=== PATIENT | male | born 1960 | race Caucasian/White ===

== ENCOUNTER 2020-04-18 08:07 | Outpatient (REF) | payer MEDICAID, SELFPAY ==
[2020-04-18 09:47] LABS: Estimated Average Glucose 111 mg/dL; Hemoglobin A1c % 5.5 %
[2020-04-18 10:05] LABS: Alanine Aminotransferase 23 U/L (0-40); Albumin Level 4.2 g/dL (3.5-5.0); Alkaline Phosphatase 99 U/L (39-117); Anion Gap 13 (12-20); Aspartate Amino Transferase 18 U/L (5-37); Bilirubin Direct 0.2 mg/dL (0.0-0.5); Bilirubin Total 0.5 mg/dL (0.0-1.0); Blood Urea Nitrogen 12 mg/dL (9-16); Calcium 8.7 mg/dL (8.4-10.2); Carbon Dioxide 27 mmol/L (22-29); Chloride 103 mmol/L (96-108); Cholesterol 173 mg/dL; Estimated Glomerular Filt Rate > 60; Glucose Random 222 mg/dL (60-115); HDL Cholesterol 43 mg/dL; LDL Cholesterol Calculated 104 mg/dl; Potassium 4.6 mmol/l (3.3-5.1); Sodium 138 mmol/L (135-145); Total Protein 6.7 g/dL (6.5-8.0); Triglycerides 133 mg/dL
[2020-04-18 10:29] LABS: TSH reflex Free T4 2.52 mIU/mL (0.32-4.0); Vitamin D 25-OH Total 22.7 ng/mL (>30)
== END 2020-04-18 08:08 | disposition home or self-care (01) ==
LOC: HO.LAB 08:07
PROVIDERS: Visit Provider Internal Medicine
DX: Z00.00 Encounter for general adult medical examination without abnormal findings (principal)
CPT/HCPCS: 80048; 80061; 80076; 82306; 83036; 84443

== ENCOUNTER 2020-10-17 09:48 | Outpatient (REF) | payer MEDICAID, SELFPAY ==
[2020-10-17 10:38] LABS: MANUAL DIFF FLAG NO
[2020-10-17 10:45] LABS: Basophils Absolute Auto 0.1 X10*3/uL (0.0-0.2); Basophils Percent Auto 0.7 % (0-2); Eosinophils Absolute Auto 0.1 X10*3/uL (0.0-0.4); Eosinophils Percent Auto 1.8 % (0-4); Hematocrit 40.2 % (42-52); Hemoglobin 13.3 g/dl (14.0-18.0); Imm Gran Abs Auto 0.04 X10*3/uL (0.00-0.03); Imm Gran Pct Auto 0.5 % (0.0-0.4); Lymphocytes Absolute Auto 2.3 X10*3/uL (1.2-4.9); Lymphocytes Percent Auto 31.3 % (20-40); Mean Corpuscular HGB Conc 33.1 g/dl (31.0-36.0); Mean Corpuscular Hemoglobin 30.1 pg (27.0-33.0); Mean Platelet Volume 9.3 fL (9.4-12.4); Monocytes Absolute Auto 0.7 X10*3/uL (0.1-1.2); Monocytes Percent Auto 9.9 % (2-11); Neutrophils Absolute Auto 4.1 X10*3/uL (2.0-8.3); Neutrophils Percent Auto 55.8 % (45-73); Platelet Count 303 X10*3/uL (160-400); Red Blood Count 4.42 X10*6/uL (4.60-5.80); Red Cell Distribution Width 12.9 % (11.0-16.0); White Blood Count 7.4 X10*3/uL (4.8-10.8)
[2020-10-17 10:52] LABS: Estimated Average Glucose 108 mg/dL; Hemoglobin A1c % 5.4 %
[2020-10-17 11:24] LABS: TSH reflex Free T4 0.67 uIU/mL (0.32-4.0); Vitamin D 25-OH Total 26.5 ng/mL (>30)
[2020-10-17 12:27] LABS: Alanine Aminotransferase 25 U/L (0-40); Albumin Level 4.4 g/dL (3.5-5.0); Alkaline Phosphatase 107 U/L (39-117); Anion Gap 10 (12-20); Aspartate Amino Transferase 18 U/L (5-37); Bilirubin Direct < 0.2 mg/dL (0.0-0.5); Bilirubin Total 0.3 mg/dL (0.0-1.0); Blood Urea Nitrogen 14 mg/dL (9-16); Calcium 9.5 mg/dL (8.4-10.2); Carbon Dioxide 27 mmol/L (22-29); Chloride 108 mmol/L (96-108); Cholesterol 171 mg/dL; Estimated Glomerular Filt Rate > 60; Glucose Random 44 mg/dL (60-115); HDL Cholesterol 44 mg/dL; LDL Cholesterol Calculated 93 mg/dl; Potassium 4.2 mmol/L (3.3-5.1); Sodium 141 mmol/L (135-145); Total Protein 7.1 g/dL (6.5-8.0); Triglycerides 170 mg/dL
== END 2020-10-17 09:49 | disposition home or self-care (01) ==
LOC: HO.LAB 09:48
PROVIDERS: PCP Internal Medicine; Visit Provider Internal Medicine
DX: I10 Essential (primary) hypertension (principal)
CPT/HCPCS: 36415; 80048; 80061; 80076; 82306; 83036; 84443; 85025

== ENCOUNTER 2020-11-16 01:18 | Day surgery (SDC) | payer MEDICAID, SELFPAY ==
--- NOTE | 2020-11-16 | ECG_ITS ---
Test Reason : SKIN ABCESS Blood Pressure : / mmHG Vent. Rate : 118 BPM Atrial Rate : 118 BPM P-R Int : 134 ms QRS Dur : 084 ms QT Int : 340 ms P-R-T Axes : 059 -17 028 degrees QTc Int : 476 ms Sinus tachycardia Minimal voltage criteria for LVH, may be normal variant Borderline ECG When compared with ECG of 06-DEC-2018 07:34, No significant change was found Referred By: Chelsey Mcclellan Electronically Signed By:LICO PEPE MD
--- NOTE | ~2020-11-16 | XR_ITS ---
EXAMINATION: XR ABDOMEN KUB CLINICAL INDICATION: Foreign body COMPARISON: 11/18/2017 TECHNIQUE: AP view of the abdomen. FINDINGS: A cylindrical shaped foreign body overlies the central pelvis along the midline; in this projection it measures approximately 9 x 4 cm, though this may lie in an oblique orientation which could misrepresent its true maximal length. The bowel gas pattern is nonobstructive. Moderate amount of stool is noted in the right abdomen. No acute osseous findings are seen. XR/XR KUB IMPRESSION: Cylindrical shaped foreign body overlying the central pelvis.
[2020-11-16 01:50] VITALS: BP 145/78; PULSE 82; RESP 18; TEMP 36.6; O2SAT 99; BMI 27.4
--- NOTE | 2020-11-16 04:25 | ED_ITS ---
HPI - Skin/Abscess/Foreign Bdy General Chief complaint: Skin/Abscess/Foreign Body Stated complaint: Personal Time Seen by Provider: 11/16/20 04:24 History of Present Illness HPI narrative: Patient is a 60-year-old male presents today with having a foreign object up his rectum. Patient was using an enema bottle. The cap part of the bottle slipped deep into his rectum. Patient came in because the foreign object is retained. He was unable to remove it. [facility] Patient denies any fever chills. No nausea no vomiting. Patient is not on blood thinners. Patient is from home. Related Data Allergies Allergy/AdvReac Type Severity Reaction Status Date / Time No Known Allergies Allergy Verified 11/16/20 03:03 [No Known Allergies*] Review of Systems Review of Systems: Constitutional: No Weight loss, No Fever, No Chills, No Night Sweats, No Fatigue, No Malaise ENT/Mouth: No Hearing loss, No Ear Pain, No Nasal Congestion, No Sinus Pain, No Hoarseness, No sore throat, No Rhinorrhea, No Swallowing Difficulty Eyes: No Eye Pain, No Swelling, No Redness, No Foreign Body, No Discharge, No Vi mayank Changes Cardiovascular: No Chest Pain, No SOB, No Dyspnea on Exertion, No Orthopnea, No Edema, No Palpitations Respiratory: No Cough, No Sputum, No Wheezing, No Smoke Exposure, No Dyspnea Gastrointestinal: No Nausea, No Vomiting, No Diarrhea, No Constipation, No abdominal Pain, No Hematochezia, No Melena Genitourinary: no irregular bleeding, No Dysuria, No Urinary Frequency, No Hematuria, No Urinary Incontinence, No Urgency, No Flank Pain, No Urinary Flow Changes, No Hesitancy Musculoskeletal: No joint pain, No Myalgias, No Joint Swelling Skin: No Skin Lesions, No rash Neuro: No Weakness, No Numbness, No Paresthesias, No Loss of Consciousness, No Dizziness, No Headache Psych: No Anxiety/Panic, No Depression, No SI/HI/AH/VH, No Social Issues, Heme/Lymph: No Bruising, No Bleeding,No Lymphadenopathy Endocrine: No Polyuria, No Polydipsia, No Temperature Intolerance PMFSH Past Medical History Medical History Colon cancer Social History Social History Advance Directives: No Advance Directives Information Provided: No Physical Exam Vital Signs: Vital Signs: Last Vital Signs Temp 97.8 F 11/16/20 01:50 Pulse 82 11/16/20 01:50 Resp 18 11/16/20 01:50 BP 145/78 H 11/16/20 01:50 Pulse Ox 99 11/16/20 01:50 Body Mass Index 27.4 Appearance: Alert. Oriented X3. No acute distress. Eyes: Pupils equal, round and reactive to light. ENT: Pharynx normal. Neck: Normal inspection. Neck supple. No lymph nodes noted. No crepitus CVS: Normal heart rate and rhythm. Pulses normal. Normal S1 and S2 Respiratory: No respiratory distress. Breath sounds normal. No Wheezing. No rales Abdomen: Soft and nontender. No rigidity. No distention. good BS x4 Skin: Skin warm and dry. Normal skin color. Normal skin turgor. Rectal exam done with nurse is a bowel present. There is a foreign object noted up the rectum. Extremities: No lower extremity edema. Neurovascular intact to all extremities. No Lacerations. No Rash Neuro: Oriented X 3. No motor deficit. No sensory deficit. Moving all extermities. No slurred speech MDM - Skin/Abscess/Foreign Bdy MDM Narrative Medical decision making narrative: Positive foreign body. Attempted to remove the foreign body multiple times to no avail. Patient's case discussed with surgery. Will take patient to the OR. Discharge Plan Discharge Clinical Impression: Foreign bodies Patient Disposition: Home, Self-Care
--- NOTE | 2020-11-16 04:36 | PC.NURSE ---
to bedside to attempt manual extraction of foreign body. Item appears to be a plastic enema bottle, entirely in rectum, visualized on imaging. Provider unable to remove despite multiple attempts. Plan to have object surgically removed, approved by .
--- NOTE | 2020-11-16 06:30 | P.HPGS_ITS ---
History of Present Illness History of Present Illness Date of Service: 11/18/20 Chief complaint: Personal Narrative: Shilo Tran is a 60 year old male who presented to the emergency department early today for treatment of a foreign body of the rectum. He reports that he recently completed a stool test that showed blood in his stool. He states that he was told that he has colon cancer and that it is possible that it could be treated by inserting something into the rectum. He reports that he was not having any difficulty with rectal bleeding, abdominal pain or change in bowel habit. Last night, he reports that he tried to use an enema but lost control of the bottle and was not able to remove it at home. Attempts to remove it in the emergency department were unsuccessful. He reports that he is feeling pressure around the rectum. He feels bloated. He has been passing flatus. He has no other complaints and is not experiencing any abdominal pain, fever or chills. Review of Systems Constitutional: Constitutional: Denies chills, Denies fever(s) and Reports headache(s) Eyes: Eyes: Reports no additional eye complaints ENT: Denies vertigo, Denies dizziness and Reports headache(s) Cardiovascular: Cardiovascular: Denies chest pain, Reports palpitations (If blood sugar is low) and Denies dyspnea Respiratory: Respiratory: Denies cough, Denies dyspnea and Denies wheezing Gastrointestinal: Gastrointestinal: Reports as per HPI Genitourinary: Genitourinary: Reports no additional male genitourinary comp laints Musculoskeletal: Musculoskeletal: Reports back pain Comments: Left arm pain related to recent fall Neurologic: Denies vertigo, Denies dizziness and Reports headache(s) Endocrine: Endocrine: Reports palpitations (If blood sugar is low) Hematologic/Lymphatic: Comments: No history of unusual bleeding or blood clots Allergic/Immunologic: Allergic/Immunologic: Denies wheezing PMFSH Past Medical History Medical History (Updated 11/16/20 @ 06:37 by Chelsey Mcclellan MD) Colon cancer Hypercholesterolemia Hypothyroidism Surgical History Surgical History (Updated 11/16/20 @ 16:19 by Chelsey Mcclellan MD) H/O elbow surgery Social History Social History (Updated 11/16/20 @ 16:19 by Chelsey Mcclellan MD) Alcohol intake: never Patient Tobacco Use Status: Never used Tobacco Advance Directives: No Advance Directives Information Provided: No Meds Allergies Allergy/AdvReac Type Severity Reaction Status Date / Time No Known Allergies Allergy Verified 11/16/20 03:03 [No Known Allergies*] Physical Exam Vital Signs: Vital Signs: Last Vital Signs Temp 97.8 F 11/16/20 01:50 Pulse 82 11/16/20 01:50 Resp 18 11/16/20 01:50 BP 145/78 H 11/16/20 01:50 Pulse Ox 99 11/16/20 01:50 Body Mass Index 27.4 Const: General: cooperative and no acute distress HENMT: Head: Yes normocephalic and Yes atraumatic Resp: Effort & Inspection: normal respiratory effort Auscultation: clear to auscultation bilaterally Cardio: Rate: regular rate Rhythm: regular rhythm GI: Other: Mildly distended, mild generalized tenderness, no palpable masses, no obvious organomegaly Skin: Other: Normal color, warm and dry Extrem: General: Yes normal to inspection (except well healed scar right elbow, ecchymoses left forearm) Psych: Affect: Anxious affect present Attitude: Guarded attititude/behavior present Assessment and Plan (1) Foreign bodies: Status: Acute 60-year-old male with foreign body of the rectum, unable to remove at bedside. Will require removal in the operating room. I reviewed the procedure with him and explained that we will attempt to remove the foreign body transanally. If this is not possible, laparotomy would be needed and possibly colotomy with extraction. We reviewed risks of the procedure including but not limited to infection, bleeding, bowel perforation, incisional hernia, anastomotic leak, DVT and PE. We also discussed possible need for temporary colostomy. He agrees to proceed. This will be scheduled urgently. Procedures Date of Service Date of Service: 11/16/20
--- NOTE | 2020-11-16 08:02 | P.CONAN_ITS ---
PMFSH Active Problems Active Problems: All Active Problems (Updated 11/16/20 @ 06:37 by Chelsey Doll ch, MD) Diabetes mellitus type 1 (Acute) Foreign bodies (Acute) Past Medical History Medical History (Updated 11/16/20 @ 06:37 by Chelsey Mcclellan MD) Colon cancer Hypercholesterolemia Hypothyroidism Social History Social History Advance Directives: No Advance Directives Information Provided: No Meds Allergies Allergy/AdvReac Type Severity Reaction Status Date / Time No Known Allergies Allergy Verified 11/16/20 03:03 [No Known Allergies*] Exam Exam Date and Time: November 16, 2020 0802 Height,Weight and Vital Signs: Height 5 ft 2 in Weight 68.039 kg Last Vital Signs Temp 97.8 F 11/16/20 01:50 Pulse 82 11/16/20 01:50 Resp 18 11/16/20 01:50 BP 145/78 H 11/16/20 01:50 Pulse Ox 99 11/16/20 01:50 Airway Mallampati Class: II TM Dist: >3cm Neck ROM: Full Heart: RRR Lungs: CTA Assessment and Plan Assessment Anesthesia Assessment: Anesthesia Plan Discussed and Chart Reviewed Final Anesthetic Review NPO: Yes ASA Class: III and Emergency Final Preanesthetic Review: No Changes in Pt Med Stat, Meds/Allgs Chart Reviewed, Consent Obtained/Reviewed and Anes Risks/Benef Reviewed Patient Risk: Intermediate Procedure Risk: Low Anesthetic Plan Anesthetic Plan: MAC: Disposition: Standard PACU
--- NOTE | 2020-11-16 08:10 | PC.NURSE ---
NURSE TO NURSE GIVEN TO SOFIA (RN) OR , PT AWARE OF PLAN OF CARE FOR SURGERY THIS AM. PT IS A/O X 3 NO SOB/MOIRA NOTED SKIN PINK WARM DRY SPEAKS IN FULL SENTENCES.
[2020-11-16 08:18] VITALS: BP 137/60; PULSE 116; RESP 16; TEMP 36.7; O2SAT 94
[2020-11-16 08:19] LABS: Glucose, Whole Blood 135 mg/dL (60-115)
--- NOTE | 2020-11-16 08:21 | PC.NURSE ---
Patient stated he was a diabetic and that sugar was low and requested it be checked. PoC done sugar was 135.RN aware.
[2020-11-16 09:13] VITALS: BP 115/72; PULSE 116; RESP 12; TEMP 37.4; O2SAT 93
[2020-11-16 09:28] VITALS: BP 121/70; PULSE 103; RESP 20; O2SAT 94
--- NOTE | 2020-11-16 09:30 | W.PM.OPN ---
Operative Note Operative Note Date of Service: 11/16/20 Narrative: Preoperative diagnosis: Foreign body of rectum Postoperative diagnosis: Same Procedure: Examination under anesthesia and removal of foreign body of rectum Anesthesia: Monitored anesthesia care Estimated blood loss: Less than 5 cc Specimen: Foreign body of rectum Urine output: None IV fluids: Lactated Ringer's Immediate complications: None Indications: This is a 60-year-old gentleman who presented to the emergency department for treatment of foreign body of the rectum. Removal could not be accomplished at the bedside. Abdominal examination was benign. Procedure in detail: With the patient in the left lateral decubitus position after obtaining adequate sedation, time-out procedure was performed. The anal sphincter was gently dilated to admit 4 fingers. Rectal examination was performed. A slender cool foreign body was palpable with the base resting against the sacral hollow. Using a combination of gentle manipulation as well as insertion of a 16 Bulgarian Cantor catheter for air insufflation above the level of the foreign body, it did could be repositioned more distally. It was then grasped with sponge forceps and extracted. A small amount of blood was noted in mucoid stool during the procedure, but no significant active bleeding was encountered. He tolerated the procedure well and was transported to the recovery room in stable condition.
[2020-11-16 09:38] LABS: MANUAL DIFF FLAG NO
[2020-11-16 09:43] VITALS: BP 124/76; PULSE 101; RESP 20; O2SAT 96
--- NOTE | 2020-11-16 09:48 | PC.NURSE ---
EKG NOT NEEDED PER MD JENNINGS. LABS WERE DRAWN POST-OP OK PER MD JENNINGS.
[2020-11-16 09:58] VITALS: BP 123/84; PULSE 100; RESP 20; O2SAT 95
[2020-11-16 10:00] LABS: Anion Gap 14 (12-20); Blood Urea Nitrogen 10 mg/dL (9-16); Carbon Dioxide 22 mmol/L (22-29); Chloride 109 mmol/L (96-108); Creatinine Clr Calc Pharmacy 103.8; Estimated Glomerular Filt Rate > 60; Glucose Fasting 135 mg/dL (60-99); Potassium 4.1 mmol/L (3.3-5.1); Sodium 141 mmol/L (135-145)
[2020-11-16 10:07] LABS: Basophils Percent Auto 0.3 % (0-2); Hemoglobin 12.6 g/dl (14.0-18.0); Imm Gran Abs Auto 0.06 X10*3/uL (0.00-0.03); Imm Gran Pct Auto 0.6 % (0.0-0.4); Lymphocytes Absolute Auto 1.3 X10*3/uL (1.2-4.9); Lymphocytes Percent Auto 11.6 % (20-40); Mean Corpuscular HGB Conc 34.1 g/dl (31.0-36.0); Mean Corpuscular Hemoglobin 30.5 pg (27.0-33.0); Mean Corpuscular Volume 89.6 fL (80-98); Mean Platelet Volume 9.4 fL (9.4-12.4); Monocytes Absolute Auto 0.7 X10*3/uL (0.1-1.2); Monocytes Percent Auto 6.4 % (2-11); Neutrophils Absolute Auto 8.9 X10*3/uL (2.0-8.3); Neutrophils Percent Auto 81.1 % (45-73); Platelet Count 301 X10*3/uL (160-400); Red Blood Count 4.13 X10*6/uL (4.60-5.80); Red Cell Distribution Width 13.1 % (11.0-16.0); White Blood Count 10.9 X10*3/uL (4.8-10.8)
== END 2020-11-16 11:24 | disposition home or self-care (01) ==
LOC: HO.ED 04:02 → HO.SSS 07:22
PROVIDERS: Emergency Provider Emergency Medicine Emergency Medical Services; Visit Provider Surgery
PROC: (CPT 45990; principal; 2020-11-16 07:30)
DX: T18.5XXA Foreign body in anus and rectum, initial encounter (principal); X58.XXXA Exposure to other specified factors, initial encounter; E10.9 Type 1 diabetes mellitus without complications; E78.00 Pure hypercholesterolemia, unspecified; Y93.89 Activity, other specified; Y92.9 Unspecified place or not applicable; Y99.8 Other external cause status; Z85.038 Personal history of other malignant neoplasm of large intestine
CPT/HCPCS: 45915; 36415; 74018; 80048; 82947; 85025; 88300; 93005; 99284; 99285

== ENCOUNTER 2020-12-27 18:48 | Emergency (ER) | payer MEDICAID, SELFPAY ==
--- NOTE | ~2020-12-27 | CT_ITS ---
EXAMINATION: CT HEAD WITHOUT CONTRAST, CT CERVICAL SPINE WITHOUT CONTRAST CLINICAL INFORMATION: Fall. COMPARISON: Portions of head CT 11/18/17 TECHNIQUE: Multidetector CT examination of the head is performed without contrast. Multidetector CT of the cervical spine without contrast. Multiplanar postprocessing This CT examination was performed using dose optimization techniques as appropriate, variously including the following: *Automated exposure control *Adjustment of mA and/or kV according to patient size (this includes techniques or standardized protocols for targeted exams where dose is matched to indication/reason for exam; i.e. extremities or head) *Use of iterative reconstruction technique DLP: Head CT 655 mGy-cm DLP: Cervical CT 511 mGy-cm FINDINGS: Head CT: There is no evidence of a recent intracranial hemorrhage or extra-axial collection. The midline structures are nondisplaced. The ventricles, cisterns, and sulci are within normal limits. There is no evidence of an intra-axial mass. There are no suspicious focal areas of abnormal brain attenuation. The evans-white interface is within normal limits. There is no evidence of acute territorial infarct. The paranasal sinuses and mastoids are within normal limits. No fracture demonstrated Cervical CT: No acute fracture or subluxation. There are degenerative changes. No suspicious abnormality in the visualized apex of the chest CT/CT cervical spine wo con IMPRESSION: 1. There is no evidence of a recent intracranial hemorrhage. 2. No acute infarct. 3. No acute fracture or subluxation of the cervical spine No fracture or fluid level.
--- NOTE | ~2020-12-27 | CT_ITS ---
EXAMINATION: CT HEAD WITHOUT CONTRAST, CT CERVICAL SPINE WITHOUT CONTRAST CLINICAL INFORMATION: Fall. COMPARISON: Portions of head CT 11/18/17 TECHNIQUE: Multidetector CT examination of the head is performed without contrast. Multidetector CT of the cervical spine without contrast. Multiplanar postprocessing This CT examination was performed using dose optimization techniques as appropriate, variously including the following: *Automated exposure control *Adjustment of mA and/or kV according to patient size (this includes techniques or standardized protocols for targeted exams where dose is matched to indication/reason for exam; i.e. extremities or head) *Use of iterative reconstruction technique DLP: Head CT 655 mGy-cm DLP: Cervical CT 511 mGy-cm FINDINGS: Head CT: There is no evidence of a recent intracranial hemorrhage or extra-axial collection. The midline structures are nondisplaced. The ventricles, cisterns, and sulci are within normal limits. There is no evidence of an intra-axial mass. There are no suspicious focal areas of abnormal brain attenuation. The evans-white interface is within normal limits. There is no evidence of acute territorial infarct. The paranasal sinuses and mastoids are within normal limits. No fracture demonstrated Cervical CT: No acute fracture or subluxation. There are degenerative changes. No suspicious abnormality in the visualized apex of the chest CT/CT head/brain wo con IMPRESSION: 1. There is no evidence of a recent intracranial hemorrhage. 2. No acute infarct. 3. No acute fracture or subluxation of the cervical spine No fracture or fluid level.
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
[2020-12-27 18:57] VITALS: BP 110/57; PULSE 120; RESP 18; TEMP 36.6; BMI 33.3
--- NOTE | 2020-12-27 19:00 | ECG_ITS ---
Test Reason : SYNCOPY Blood Pressure : / mmHG Vent. Rate : 114 BPM Atrial Rate : 114 BPM P-R Int : 132 ms QRS Dur : 082 ms QT Int : 354 ms P-R-T Axes : 043 -22 -02 degrees QTc Int : 487 ms Sinus tachycardia Moderate voltage criteria for LVH, may be normal variant Borderline ECG When compared with ECG of 16-NOV-2020 07:31, No significant change was found Referred By: Keyanna Gaytan Electronically Signed By:LICO PEPE MD
[2020-12-27 19:07] LABS: Glucose, Whole Blood 126 mg/dL (60-115)
[2020-12-27] MEDS: 0.9 % Sodium Chloride 1,000 ML 999 ML IVCONT (19:16)
[2020-12-27] MEDS: ondansetron HCL 4 MG/2 ML VIAL IVPUSH (19:16)
[2020-12-27 19:22] LABS: MANUAL DIFF FLAG NO
[2020-12-27 19:37] LABS: Basophils Absolute Auto 0.1 X10*3/uL (0.0-0.2); Basophils Percent Auto 0.7 % (0-2); Eosinophils Absolute Auto 0.2 X10*3/uL (0.0-0.4); Eosinophils Percent Auto 2.2 % (0-4); Hematocrit 38.6 % (42-52); Hemoglobin 13.3 g/dl (14.0-18.0); Imm Gran Abs Auto 0.07 X10*3/uL (0.00-0.03); Imm Gran Pct Auto 0.9 % (0.0-0.4); Lymphocytes Absolute Auto 2.6 X10*3/uL (1.2-4.9); Mean Corpuscular HGB Conc 34.5 g/dl (31.0-36.0); Mean Corpuscular Hemoglobin 30.8 pg (27.0-33.0); Mean Corpuscular Volume 89.4 fL (80-98); Mean Platelet Volume 9.3 fL (9.4-12.4); Monocytes Absolute Auto 0.6 X10*3/uL (0.1-1.2); Monocytes Percent Auto 8.6 % (2-11); Neutrophils Absolute Auto 3.9 X10*3/uL (2.0-8.3); Neutrophils Percent Auto 52.6 % (45-73); Platelet Count 285 X10*3/uL (160-400); Red Blood Count 4.32 X10*6/uL (4.60-5.80); Red Cell Distribution Width 13.2 % (11.0-16.0); White Blood Count 7.4 X10*3/uL (4.8-10.8)
[2020-12-27 19:43] LABS: Prothrombin Time 10.9 SEC (9.9-13.0)
[2020-12-27 19:45] LABS: Partial Thromboplastin Time 29.9 SEC (24.1-38.0)
[2020-12-27 19:51] VITALS: PULSE 110
[2020-12-27 19:57] LABS: Alanine Aminotransferase 23 U/L (0-40); Alkaline Phosphatase 116 U/L (39-117); Anion Gap 18 (12-20); Aspartate Amino Transferase 26 U/L (5-37); Bilirubin Direct < 0.2 mg/dL (0.0-0.5); Bilirubin Total 0.2 mg/dL (0.0-1.0); Blood Urea Nitrogen 13 mg/dL (9-16); Carbon Dioxide 18 mmol/L (22-29); Chloride 107 mmol/L (96-108); Creatinine Clr Calc Pharmacy 72.3; Estimated Glomerular Filt Rate > 60; Glucose Random 120 mg/dL (60-115); Lipase 36 U/L (8-78); Magnesium 2.1 mg/dL (1.6-2.6); Potassium 3.9 mmol/L (3.3-5.1); Sodium 139 mmol/L (135-145); Total Protein 6.7 g/dL (6.5-8.0)
[2020-12-27 19:59] LABS: Troponin-I High Sensitivity < 3.5 ng/L (<3.5-35.0)
[2020-12-27 21:30] VITALS: BP 139/76; PULSE 104; RESP 18; O2SAT 96
[2020-12-27] MEDS: Acetaminophen 325 MG TABLET 650 MG PO (21:41)
--- NOTE | 2020-12-27 21:45 | PC.NURSE ---
PT RESTING UPRIGHT IN BED WATCHING TV, OFFERS NO NEW COMPLAINTS, POC 59, PROVIDER AWARE, PT GIVEN MULTIPLE ORANGE JUICES TO DRINK AND CRACKERS TO EAT.
[2020-12-27 22:37] LABS: Glucose, Whole Blood 59 mg/dL (60-115)
[2020-12-27 22:37] LABS: Glucose, Whole Blood 185 mg/dL (60-115)
== END 2020-12-27 22:57 | disposition home or self-care (01) ==
PROVIDERS: Emergency Provider Emergency Medicine
DX: E10.649 Type 1 diabetes mellitus with hypoglycemia without coma (principal); R55 Syncope and collapse; S00.81XA Abrasion of other part of head, initial encounter; S09.90XA Unspecified injury of head, initial encounter; W01.198A Fall on same level from slipping, tripping and stumbling with subsequent striking against other object, initial encounter; Y93.9 Activity, unspecified; Y92.9 Unspecified place or not applicable; Y99.9 Unspecified external cause status; Z85.038 Personal history of other malignant neoplasm of large intestine; Z79.4 Long term (current) use of insulin
CPT/HCPCS: 36415; 70450; 72125; 80048; 80076; 82947; 83690; 83735; 84484; 85025; 85610; 85730; 93005; 96361; 96374; 99285; J2405

== ENCOUNTER → 2021-04-01 09:53 | Outpatient (BNVA) | payer MEDICAID, SELFPAY | PROVIDERS: Visit Provider Nurse Practitioner Family | DX: Z12.11 Encounter for screening for malignant neoplasm of colon (principal); D64.9 Anemia, unspecified | CPT/HCPCS: 99202 ==

== ENCOUNTER 2021-06-29 20:22 | Emergency (ER) | payer MEDICAID, SELFPAY ==
--- NOTE | ~2021-06-29 | CT_ITS ---
EXAMINATION: CT ABDOMEN AND PELVIS WITHOUT CONTRAST CLINICAL INFORMATION: Foreign body removal. Rule out free air. COMPARISON: CT from earlier in the evening TECHNIQUE: Multidetector volumetric imaging was performed from the superior aspect of the liver through the pubic symphysis. Sagittal and coronal reformatted images were obtained on the technologist's workstation. This CT examination was performed using dose optimization techniques as appropriate, variously including the following: *Automated exposure control *Adjustment of mA and/or kV according to patient size (this includes techniques or standardized protocols for targeted exams where dose is matched to indication/reason for exam; i.e. extremities or head) *Use of iterative reconstruction technique DLP: 557 mGy-cm FINDINGS: LUNG BASES: The visualized lung bases are unremarkable. LIVER, GALLBLADDER, AND BILIARY TREE: The liver is normal in size, shape, and attenuation. No focal hepatic lesion or biliary ductal dilatation is present. The gallbladder is unremarkable with no evidence of radiopaque gallstones, gallbladder wall thickening, or obvious pericholecystic inflammatory changes. PANCREAS: Unremarkable. SPLEEN: Unremarkable. ADRENAL GLANDS: Unremarkable. KIDNEYS AND URETERS: The kidneys are normal in size, shape, and attenuation. No hydronephrosis, hydroureter, or calculi seen. No perinephric stranding. BLADDER: Unremarkable. GASTROINTESTINAL TRACT: Small hiatal hernia. The stomach is otherwise unremarkable. Normal caliber small bowel. No obstruction. Colonic diverticulosis noted without diverticulitis. Multiple of the prior foreign body. No free air. ABDOMINAL WALL: No significant hernia is appreciated. LYMPH NODES: Normal. VASCULAR: Unremarkable. PELVIC VISCERA: The prostate and seminal vesicles are unremarkable. OSSEOUS STRUCTURES: No acute or suspicious osseous abnormality. Degenerative changes of the spine. CT/CT abdomen pelvis wo con IMPRESSION: The foreign body has been removed. No free air. Fleischner guidelines were followed.
--- NOTE | ~2021-06-29 | CT_ITS ---
EXAMINATION: CT ABDOMEN AND PELVIS WITHOUT CONTRAST CLINICAL INFORMATION: Foreign body in rectum. Leukocytosis. Rule out perforation. COMPARISON: 11/18/2017 CT . Radiograph 11/16/2020. TECHNIQUE: Multidetector volumetric imaging was performed from the superior aspect of the liver through the pubic symphysis. Sagittal and coronal reformatted images were obtained on the technologist's workstation. This CT examination was performed using dose optimization techniques as appropriate, variously including the following: *Automated exposure control *Adjustment of mA and/or kV according to patient size (this includes techniques or standardized protocols for targeted exams where dose is matched to indication/reason for exam; i.e. extremities or head) *Use of iterative reconstruction technique DLP: 561 mGy-cm FINDINGS: LUNG BASES: The visualized lung bases are unremarkable. LIVER, GALLBLADDER, AND BILIARY TREE: The liver is normal in size, shape, and attenuation. No focal hepatic lesion or biliary ductal dilatation is present. The gallbladder is unremarkable with no evidence of radiopaque gallstones, gallbladder wall thickening, or obvious pericholecystic inflammatory changes. PANCREAS: Unremarkable. SPLEEN: Unremarkable. ADRENAL GLANDS: Unremarkable. KIDNEYS AND URETERS: The kidneys are normal in size, shape, and attenuation. No hydronephrosis, hydroureter, or calculi seen. No perinephric stranding. BLADDER: Unremarkable. GASTROINTESTINAL TRACT: Small hiatal hernia. The stomach is otherwise unremarkable. Normal caliber small bowel. No obstruction. Normal appendix. There is colonic diverticulosis without diverticulitis. There is a rectal foreign body which extends to the distal aspect of the sigmoid colon. This has a somewhat cylindrical shape measuring 17.5 cm in length. This has a diameter of 2.5 cm. There is a central ridge to the foreign body. This is approximately 5 cm from the anus. There is no free fluid. No free air. ABDOMINAL WALL: No significant hernia is appreciated. LYMPH NODES: Normal. VASCULAR: Unremarkable. PELVIC VISCERA: The prostate and seminal vesicles are unremarkable. OSSEOUS STRUCTURES: No acute or suspicious osseous abnormality. Degenerative changes of the hips and spine. Vacuum disc phenomenon at L5-S1. CT/CT abdomen pelvis wo con IMPRESSION: Rectal foreign body as detailed above. No free air or free fluid. Fleischner guidelines were followed.
[2021-06-29 20:47] VITALS: BP 171/82; PULSE 112; RESP 16; TEMP 37.2; O2SAT 96; BMI 32.9
[2021-06-29 21:08] LABS: MANUAL DIFF FLAG NO
[2021-06-29 21:10] LABS: Basophils Absolute Auto 0.1 X10*3/uL (0.0-0.2); Basophils Percent Auto 0.4 % (0-2); Eosinophils Absolute Auto 0.1 X10*3/uL (0.0-0.4); Eosinophils Percent Auto 0.4 % (0-4); Hemoglobin 14.2 g/dl (14.0-18.0); Imm Gran Pct Auto 0.7 % (0.0-0.4); Lymphocytes Absolute Auto 1.8 X10*3/uL (1.2-4.9); Lymphocytes Percent Auto 11.5 % (20-40); Mean Corpuscular HGB Conc 33.8 g/dl (31.0-36.0); Mean Corpuscular Hemoglobin 30.2 pg (27.0-33.0); Mean Corpuscular Volume 89.4 fL (80.0-98.0); Mean Platelet Volume 9.3 fL (9.4-12.4); Monocytes Absolute Auto 0.9 X10*3/uL (0.1-1.2); Monocytes Percent Auto 6.1 % (2-11); Neutrophils Absolute Auto 12.3 x10*3/uL (2.0-8.3); Neutrophils Percent Auto 80.9 % (45-73); Platelet Count 318 X10*3/uL (160-400); White Blood Count 15.2 X10*3/uL (4.8-10.8)
[2021-06-29 21:25] LABS: COVID-19 Test Negative (Negative)
[2021-06-29 21:29] LABS: Appearance Urine CLEAR; Color Urine YELLOW; Glucose Urine UA 100 MG/DL (NEG); Leukocyte Esterase Urine NEG (NEG); Nitrite Urine NEG (NEG); Urine Blood NEG (NEG); Urine Ketones NEG (NEG); Urine Protein NEG (NEG-TRACE)
--- NOTE | 2021-06-29 22:04 | ED_ITS ---
HPI - Abdominal Pain General Chief Complaint: Abdominal Pain Stated Complaint: general medical? Time Seen by Provider: 06/29/21 22:03 Source: patient and insurance verification specialist Mode of arrival: ambulatory History of Present Illness HPI narrative: 61-year-old male with history of diabetes presents with abdominal pain that is nonradiating and he states that he has not moved his bowels since this morning. Patient states that he tried an enema this afternoon without results. Patient otherwise denies any fever, chills, nausea, vomiting. Patient endorses that his average glucose is have been 95. He states that the enema he tried to use was recommended by a friend and was not a typical nyne-huz-hrlgyes purchase from the drugstore. He states that it is stuck inside and says that this is happened 1 other time. Related Data Home Medications Medication Instructions Recorded Confirmed clonazepam 0.5 mg tablet 0.25 mg PO BID 04/01/21 duloxetine 30 mg capsule,delayed 30 mg PO DAILY 04/01/21 release (Cymbalta) famotidine 20 mg tablet 20 mg PO BID 04/01/21 famotidine 40 mg tablet 40 mg PO BEDTIME 04/01/21 Previous Rx's Medication Instructions Recorded docusate sodium 100 mg capsule 100 mg PO BEDTIME #30 cap 04/01/21 Allergies Allergy/AdvReac Type Severity Reaction Status Date / Time No Known Allergies Allergy Verified 06/29/21 20:47 [No Known Allergies*] Review of Systems Review of Systems Pertinent positives and negatives as stated in HPI 10 point review of systems is otherwise negative. Physical Exam Vital Signs: Vital Signs: Last Vital Signs Temp 98.4 F 06/30/21 01:18 Pulse 103 H 06/30/21 01:18 Resp 16 06/30/21 01:18 BP 127/70 06/30/21 01:18 Pulse Ox 95 06/30/21 01:18 BMI result Body Mass Index 32.9 VITAL SIGNS: Reviewed. GENERAL: Well developed, well nourished, in no acute distress. HEAD: Normocephalic/atraumatic EYES: PERRLA, EOMI LUNGS: Normal breath sounds. SpO2<96> CARDIOVASCULAR: Regular rate and rhythm without noted murmurs, no JVD or lower extremity edema. ABDOMEN: Soft, non-tender, non-distended with bowel sounds. ALICIA: A hard smooth object is appreciated approximately 5 cm inside the rectum MUSCULOSKELETAL: No tenderness, deformities, or effusions noted on gross inspection. EXTREMITIES: No cyanosis, clubbing or edema. SKIN: Inspection of the skin reveals no rashes NEUROLOGIC: Alert and oriented x 4. Course Course Course Narrative: 2204: Suspect Infection 61-year-old male with history and clinical presentation concerning for possible diverticulitis initially and review of all investigations initially thought to be infectious etiology. Now there are concerns for possible perforation and on review of CT scan there is of foreign body confirmed within the rectum without noted free air/ free fluid. Patient did receive IV antibiotics as well as IV fluids. Dr Bey successfully removed the foreign object and will repeat CT imaging to evaluate for free air/free fluid. Patient states he is feeling better. On review of repeat CT imaging is negative for evidence of free air, repeat CBC shows a significant reduction in leukocytosis and left shift point more towards likely stress response as abdominal exam was otherwise benign. Patient is otherwise hemodynamically stable for discharge to home with instructions to follow-up with his primary care provider and strict return precautions. MDM - Abdominal Pain Lab Data Result diagrams: 06/30/21 01:48 06/29/21 22:50 Labs: Lab Results 06/29/21 06/29/21 06/29/21 Range/Units 21:04 21:04 21:04 WBC 15.2 H (4.8-10.8) X10*3/uL RBC 4.70 (4.60-5.80) X10*6/uL Hgb 14.2 (14.0-18.0) g/dl Hct 42.0 (42.0-52.0) % MCV 89.4 (80.0-98.0) fL MCH 30.2 (27.0-33.0) pg MCHC 33.8 (31.0-36.0) g/dl RDW 13.0 (11.0-16.0) % Plt Count 318 (160-400) X10*3/uL MPV 9.3 L (9.4-12.4) fL Immature Gran % (Auto) 0.7 H (0.0-0.4) % Neut % (Auto) 80.9 H (45-73) % Lymph % (Auto) 11.5 L (20-40) % Anson % (Auto) 6.1 (2-11) % Eos % (Auto) 0.4 (0-4) % Baso % (Auto) 0.4 (0-2) % Lymph # (Auto) 1.8 (1.2-4.9) X10*3/uL Anson # (Auto) 0.9 (0.1-1.2) X10*3/uL Eos # (Auto) 0.1 (0.0-0.4) X10*3/uL Baso # (Auto) 0.1 (0.0-0.2) X10*3/uL Abs Immat Gran (auto) 0.10 H (0.00-0.03) X10*3/uL Absolute Neuts (auto) 12.3 H (2.0-8.3) x10*3/uL Absolute Nucleated RBC 0.000 (0.0-0.012) X10*3/uL Nucleated RBC % (auto) 0.0 (0.0-0.2) /100WBC Sodium (135-145) mmol/L Potassium (3.3-5.1) mmol/L Chloride (96-108) mmol/L Carbon Dioxide (22-29) mmol/L Anion Gap (12-20) BUN (9-16) mg/dL Creatinine (0.5-1.4) mg/dL Estim Creat Clear Calc Estimated GFR POC Glucose (60-115) mg/dL Random Glucose (60-115) mg/dL Lactic Acid (0.5-2.0) mmol/L Calcium (8.4-10.2) mg/dL Total Bilirubin (0.0-1.0) mg/dL AST (5-37) U/L ALT (0-40) U/L Alkaline Phosphatase (39-117) U/L Total Protein (6.5-8.0) g/dL Albumin (3.5-5.0) g/dL Urine Color YELLOW Urine Appearance CLEAR Urine pH 6.0 (5.0-8.0) Ur Specific [place] 1.010 (1.005-1.025) Urine Protein NEG (NEG-TRACE) MG/DL Urine Glucose (UA) 100 H (NEG) MG/DL Urine Ketones NEG (NEG) MG/DL Urine Blood NEG (NEG) Urine Nitrite NEG (NEG) Ur Leukocyte Esterase NEG (NEG) COVID-19 (MATHEW) Negative (Negative) COVID-19 Clin Com See Note 06/29/21 06/29/21 06/29/21 Range/Units 22:16 22:50 22:50 WBC (4.8-10.8) X10*3/uL RBC (4.60-5.80) X10*6/uL Hgb (14.0-18.0) g/dl Hct (42.0-52.0) % MCV (80.0-98.0) fL MCH (27.0-33.0) pg MCHC (31.0-36.0) g/dl RDW (11.0-16.0) % Plt Count (160-400) X10*3/uL MPV (9.4-12.4) fL Immature Gran % (Auto) (0.0-0.4) % Neut % (Auto) (45-73) % Lymph % (Auto) (20-40) % Anson % (Auto) (2-11) % Eos % (Auto) (0-4) % Baso % (Auto) (0-2) % Lymph # (Auto) (1.2-4.9) X10*3/uL Anson # (Auto) (0.1-1.2) X10*3/uL Eos # (Auto) (0.0-0.4) X10*3/uL Baso # (Auto) (0.0-0.2) X10*3/uL Abs Immat Gran (auto) (0.00-0.03) X10*3/uL Absolute Neuts (auto) (2.0-8.3) x10*3/uL Absolute Nucleated RBC (0.0-0.012) X10*3/uL Nucleated RBC % (auto) (0.0-0.2) /100WBC Sodium 140 (135-145) mmol/L Potassium 4.6 (3.3-5.1) mmol/L Chloride 106 (96-108) mmol/L Carbon Dioxide 24 (22-29) mmol/L Anion Gap 15 (12-20) BUN 14 (9-16) mg/dL Creatinine 0.92 (0.5-1.4) mg/dL Estim Creat Clear Calc 70.2 Estimated GFR > 60 POC Glucose 218 H (60-115) mg/dL Random Glucose 227 H D (60-115) mg/dL Lactic Acid 1.0 (0.5-2.0) mmol/L Calcium 9.6 D (8.4-10.2) mg/dL Total Bilirubin 0.2 (0.0-1.0) mg/dL AST 24 (5-37) U/L ALT 34 (0-40) U/L Alkaline Phosphatase 137 H (39-117) U/L Total Protein 7.6 (6.5-8.0) g/dL Albumin 4.4 (3.5-5.0) g/dL Urine Color Urine Appearance Urine pH (5.0-8.0) Ur Specific [place] (1.005-1.025) Urine Protein (NEG-TRACE) MG/DL Urine Glucose (UA) (NEG) MG/DL Urine Ketones (NEG) MG/DL Urine Blood (NEG) Urine Nitrite (NEG) Ur Leukocyte Esterase (NEG) COVID-19 (MATHEW) (Negative) COVID-19 Clin Com 06/30/21 Range/Units 01:48 WBC 11.3 H (4.8-10.8) X10*3/uL RBC 4.32 L (4.60-5.80) X10*6/uL Hgb 12.9 L (14.0-18.0) g/dl Hct 38.6 L (42.0-52.0) % MCV 89.4 (80.0-98.0) fL MCH 29.9 (27.0-33.0) pg MCHC 33.4 (31.0-36.0) g/dl RDW 13.1 (11.0-16.0) % Plt Count 293 (160-400) X10*3/uL MPV 9.3 L (9.4-12.4) fL Immature Gran % (Auto) 0.7 H (0.0-0.4) % Neut % (Auto) 76.1 H (45-73) % Lymph % (Auto) 16.0 L (20-40) % Anson % (Auto) 6.7 (2-11) % Eos % (Auto) 0.1 (0-4) % Baso % (Auto) 0.4 (0-2) % Lymph # (Auto) 1.8 (1.2-4.9) X10*3/uL Anson # (Auto) 0.8 (0.1-1.2) X10*3/uL Eos # (Auto) 0.0 (0.0-0.4) X10*3/uL Baso # (Auto) 0.1 (0.0-0.2) X10*3/uL Abs Immat Gran (auto) 0.08 H (0.00-0.03) X10*3/uL Absolute Neuts (auto) 8.6 H (2.0-8.3) x10*3/uL Absolute Nucleated RBC 0.000 (0.0-0.012) X10*3/uL Nucleated RBC % (auto) 0.0 (0.0-0.2) /100WBC Sodium (135-145) mmol/L Potassium (3.3-5.1) mmol/L Chloride (96-108) mmol/L Carbon Dioxide (22-29) mmol/L Anion Gap (12-20) BUN (9-16) mg/dL Creatinine (0.5-1.4) mg/dL Estim Creat Clear Calc Estimated GFR POC Glucose (60-115) mg/dL Random Glucose (60-115) mg/dL Lactic Acid (0.5-2.0) mmol/L Calcium (8.4-10.2) mg/dL Total Bilirubin (0.0-1.0) mg/dL AST (5-37) U/L ALT (0-40) U/L Alkaline Phosphatase (39-117) U/L Total Protein (6.5-8.0) g/dL Albumin (3.5-5.0) g/dL Urine Color Urine Appearance Urine pH (5.0-8.0) Ur Specific [place] (1.005-1.025) Urine Protein (NEG-TRACE) MG/DL Urine Glucose (UA) (NEG) MG/DL Urine Ketones (NEG) MG/DL Urine Blood (NEG) Urine Nitrite (NEG) Ur Leukocyte Esterase (NEG) COVID-19 (MATHEW) (Negative) COVID-19 Clin Com Discharge Plan Discharge Clinical Impression: Foreign body in anus and rectum, initial encounter Patient Disposition: Home, Self-Care Instructions: Rectal Foreign Body (ED) Additional Instructions: 1. Reanudar todos los medicamentos caseros seg?n lo prescrito. 2. Recomendar el uso de [employer] de venta julee para los s?ntomas de estre ?imiento. 3. Thaddeus un seguimiento con [place] proveedor de atenci?n primaria en los pr?ximos 1 a 2 d?as para noe reevaluaci?n. Regrese a la amira de emergencias si experimenta un empeoramiento de los s?ntom as, nadine dolor abdominal, fiebre, escalofr?os. Prescriptions: No Action docusate sodium 100 mg capsule 100 mg PO BEDTIME Qty: 30 RF: 3 Print Language: Hungarian [facility] Past Medical History Source: nursing notes reviewed Medical History Colon cancer Diabetes type I Hypercholesterolemia Hypothyroidism Surgical History H/O elbow surgery Family History Family History Mother Pelvic cancer Father Diabetes Paternal Aunt Diabetes Social History Social History Alcohol intake: never Patient Tobacco Use Status: Never used Tobacco Advance Directives: No Advance Directives Information Provided: No
[2021-06-29 22:20] LABS: Glucose, Whole Blood 218 mg/dL (60-115)
[2021-06-29 23:12] LABS: Alanine Aminotransferase 34 U/L (0-40); Albumin Level 4.4 g/dL (3.5-5.0); Alkaline Phosphatase 137 U/L (39-117); Anion Gap 15 (12-20); Aspartate Amino Transferase 24 U/L (5-37); Bilirubin Total 0.2 mg/dL (0.0-1.0); Blood Urea Nitrogen 14 mg/dL (9-16); Calcium 9.6 mg/dL (8.4-10.2); Carbon Dioxide 24 mmol/L (22-29); Chloride 106 mmol/L (96-108); Creatinine Clr Calc Pharmacy 70.2; Estimated Glomerular Filt Rate > 60; Glucose Random 227 mg/dL (60-115); Potassium 4.6 mmol/L (3.3-5.1); Sodium 140 mmol/L (135-145); Total Protein 7.6 g/dL (6.5-8.0)
[2021-06-29] MEDS: Piperacillin Sodium/Tazobactam 3.375 GM in 0.9 % Sodium Chloride 50 ML IV (23:17)
[2021-06-29] MEDS: 0.9 % Sodium Chloride 2,000 ML 999 ML IV (23:18)
--- NOTE | 2021-06-29 23:57 | PC.NURSE ---
CT SHOWED FB IN RECTUM. FB REMOVED BY DR HUBER. PT TO HAVE REPEAT CT.
[2021-06-30 01:18] VITALS: BP 127/70; PULSE 103; RESP 16; TEMP 36.9; O2SAT 95
[2021-06-30 01:52] LABS: Basophils Absolute Auto 0.1 X10*3/uL (0.0-0.2); Basophils Percent Auto 0.4 % (0-2); Eosinophils Percent Auto 0.1 % (0-4); Hematocrit 38.6 % (42.0-52.0); Hemoglobin 12.9 g/dl (14.0-18.0); Imm Gran Abs Auto 0.08 X10*3/uL (0.00-0.03); Imm Gran Pct Auto 0.7 % (0.0-0.4); Lymphocytes Absolute Auto 1.8 X10*3/uL (1.2-4.9); MANUAL DIFF FLAG NO; Mean Corpuscular HGB Conc 33.4 g/dl (31.0-36.0); Mean Corpuscular Hemoglobin 29.9 pg (27.0-33.0); Mean Corpuscular Volume 89.4 fL (80.0-98.0); Mean Platelet Volume 9.3 fL (9.4-12.4); Monocytes Absolute Auto 0.8 X10*3/uL (0.1-1.2); Monocytes Percent Auto 6.7 % (2-11); Neutrophils Absolute Auto 8.6 x10*3/uL (2.0-8.3); Neutrophils Percent Auto 76.1 % (45-73); Platelet Count 293 X10*3/uL (160-400); Red Blood Count 4.32 X10*6/uL (4.60-5.80); Red Cell Distribution Width 13.1 % (11.0-16.0); White Blood Count 11.3 X10*3/uL (4.8-10.8)
== END 2021-06-30 02:28 | disposition home or self-care (01) ==
PROVIDERS: Emergency Provider Student in an Organized Health Care Education/Training Program
DX: T18.5XXA Foreign body in anus and rectum, initial encounter (principal); X58.XXXA Exposure to other specified factors, initial encounter; Z20.822 Contact with and (suspected) exposure to COVID-19; R10.9 Unspecified abdominal pain; E11.9 Type 2 diabetes mellitus without complications; Y93.89 Activity, other specified; Y92.039 Unspecified place in apartment as the place of occurrence of the external cause; Y99.9 Unspecified external cause status
CPT/HCPCS: 36415; 74176; 80053; 81003; 82947; 83605; 85025; 87040; 87635; 96361; 96374; 99284; J2543

== ENCOUNTER → 2021-07-01 13:12 | Outpatient (BNVA) | payer MEDICAID, SELFPAY | PROVIDERS: PCP Internal Medicine; Referring Provider Internal Medicine; Visit Provider Nurse Practitioner Family | DX: K59.03 Drug induced constipation (principal); D64.9 Anemia, unspecified | CPT/HCPCS: 99212 ==

== ENCOUNTER 2021-10-01 10:50 | Outpatient (REF) | payer MEDICAID, SELFPAY ==
--- NOTE | ~2021-10-01 | XR_ITS ---
EXAMINATION: XR SHOULDER, LEFT CLINICAL INFORMATION: Left shoulder pain COMPARISON: None TECHNIQUE: Four views of the left shoulder. FINDINGS: Visualized portion of the proximal left humerus demonstrate no fracture. Left humeral head is mildly high riding in relation to the glenoid although there is no evidence of dislocation. There are mild to moderate degenerative changes of the glenohumeral and acromioclavicular joints. Visualized left-sided ribs and lung parenchyma are unremarkable. XR/XR shoulder LT min 2V IMPRESSION: Mild to moderate degenerative changes of the left shoulder. Mildly high riding humeral head in relation to the glenoid fossa may represent underlying ligamentous injury. MRI imaging can be obtained as clinically indicated.
== END 2021-10-01 10:51 | disposition home or self-care (01) ==
LOC: HO.XRAY 10:50
PROVIDERS: PCP Internal Medicine; Visit Provider Internal Medicine
DX: M25.512 Pain in left shoulder (principal)
CPT/HCPCS: 73030

== ENCOUNTER → 2021-11-06 13:59 | Outpatient (BNVA) | payer MEDICAID, SELFPAY | PROVIDERS: PCP Internal Medicine; Visit Provider Physician Assistant | DX: M75.102 Unspecified rotator cuff tear or rupture of left shoulder, not specified as traumatic (principal); M19.012 Primary osteoarthritis, left shoulder | CPT/HCPCS: 99202 ==

== ENCOUNTER → 2022-07-05 13:43 | Outpatient (BNVA) | payer MEDICAID, SELFPAY | PROVIDERS: PCP Internal Medicine; Visit Provider Nurse Practitioner Family | DX: K59.00 Constipation, unspecified (principal); D64.9 Anemia, unspecified | CPT/HCPCS: 99212 ==

== ENCOUNTER 2022-07-21 15:09 | Outpatient (REF) | payer MEDICAID, SELFPAY ==
[2022-07-22 09:23] LABS: FIT Int Ctl YES; FIT1 POSITIVE (NEGATIVE); FIT2 NEGATIVE (NEGATIVE)
== END 2022-07-21 15:10 | disposition home or self-care (01) ==
LOC: HO.LNP 15:09
PROVIDERS: Visit Provider Nurse Practitioner Family
DX: Z87.19 Personal history of other diseases of the digestive system (principal)
CPT/HCPCS: 82274

== ENCOUNTER 2023-01-13 14:23 | Outpatient (REF) | payer MEDICAID, SELFPAY ==
--- NOTE | ~2023-01-13 | XR_ITS ---
EXAMINATION: XR LUMBOSACRAL SPINE WITH OBLIQUES CLINICAL INFORMATION: Pain Acute right-sided back pain. Patient states lower back pain for 3 weeks, worse on right and at night COMPARISON: None available. TECHNIQUE: AP, both oblique, and lateral views of the lumbar spine. Lateral view of the lumbosacral junction. FINDINGS: There are 5 nonrib-bearing lumbar-type vertebral bodies. The vertebral bodies is well-maintained. There is mild disc space narrowing at L4-L5. The L5-S1 disc space is narrow with vacuum phenomenon is seen with degenerative disc disease. There is question of L5 spondylolysis with mild retrolisthesis of L5 with respect to S1. There is no significant degenerative facet joint disease. XR/XR lumbar spine 4V min IMPRESSION: 1. Degenerative disc disease at L4-L5 and L5-S1. 2. Question of L5 spondylolysis with mild retrolisthesis of L5 with respect to S1. CT scan or MRI scan could be obtained for further evaluation.
== END 2023-01-13 14:24 | disposition home or self-care (01) ==
LOC: HO.HHCX 14:23
PROVIDERS: Visit Provider Internal Medicine
DX: M54.6 Pain in thoracic spine (principal)
CPT/HCPCS: 72110

== ENCOUNTER 2023-07-07 11:18 | Outpatient (AMB) | payer MEDICAID, SELFPAY ==
--- NOTE | 2023-07-07 11:32 | MHC.OFFVIS ---
Intake Vital Signs 07/07/23 11:34 Weight 156 lb 8.451 oz BP 152/83 H Blood Pressure Location Lt brachial Position Sitting Pulse 122 H Intake Visit Reasons: 1 Year Fu Intake Note: Shilo presents in the office as a 1 year follow up. CC: He states that he is concerned he is losing weight and not trying to. He thinks it is either thyroid or diabetes but something in there is wrong. Slot Floorperson Required: Yes Slot Floorperson Name: [id number] Carine Allergies No Known Allergies [No Known Allergies*] Allergy (Verified 07/07/23 11:35) HPI 1 Year Fu HPI Details LAST VISIT: Screen for colon cancer Patient is refusing to go for colonoscopy. Patient denies any GI concerning symptoms. Denies melena, hematochezia, unintentional weight loss or ribbon like stools. Will check Cologuard and if positive will to procedure then. Patient is agreeable to plan and verbalizes understanding of instructions. He was given the opportunity to ask questions all questions answered. ? Thank you for allowing me to participate in his care Plan Orders Orders AMB Cologuard Today Z12.11 Medications Discontinued docusate sodium Discontinued Reason: Patient no longer taking 100 mg PO BEDTIME 30 caps 3RF K59.00 TODAY'S VISIT Patient is here today for follow-up. Patient has not done Cologuard. Reports that he is not interested in doing so. Patient is also refusing colonoscopy states that he has not going to have any procedure done. Long discussion about the importance screening however patient is not interested. tongue and groove machine setter use during the visit. Patient denies any GI concerning symptoms. States that he lost 6 lb but he believes that it is because of his diabetes he is probably eating better so he lost few lb. Patient denies any melena, hematochezia, unintentional weight loss or ribbon like stools. Denies any dyspepsia, dysphagia or odynophagia. FORMERLY [facility], [facility]–1983 Medical History Diabetes type I Hypercholesterolemia Hypothyroidism Surgical History H/O elbow surgery Family History Mother Pelvic cancer Father Diabetes Paternal Aunt Diabetes Social History Alcohol intake: never Patient Tobacco Use Status: Never used Tobacco Current occupational status: disabled Current occupation: lt hand Review of Systems Const Denies weight gain and Denies weight loss ENT Reports no additional complaints, Denies dysphagia and Denies odynophagia Card Reports no additional complaints Resp Reports no additional complaints GI Denies abdominal pain, Denies belching, Denies melena, Denies bloating, Denies change in bowel habits, Denies dysphagia, Denies excessive flatus, Denies dyspepsia, Denies heartburn, Denies diarrhea, Denies loose stools, Denies nausea, Denies odynophagia and Denies vomiting Reports no additional complaints Musc Reports no additional complaints Neuro Reports no additional complaints Psych Reports no additional complaints Endo Reports no additional complaints Physical Exam Vital Signs: Last Vital Signs Pulse 122 H 07/07/23 11:34 BP 152/83 H 07/07/23 11:34 Const General: healthy appearing, no acute distress and well developed Nutritional Appearance: well nourished Orientation/consciousness: patient oriented x3 Resp Effort & Inspection: normal respiratory effort, able to speak in complete sentences, no tracheal deviation and symmetric chest movement Auscultation: clear to auscultation bilaterally Cardio Rate: regular rate GI Inspection: Yes normal to inspection and No distended Palpation (GI): Soft to palpation, not firm, nontender and No hepatosplenomegaly present Auscultation: normal bowel sounds General: Yes no CVA tenderness Back/Spine/Pelvis Back: no CVA tenderness Skin General skin exam: elasticity normal, turgor normal and dry skin Neuro General: patient oriented x3 Psych Appearance: grossly normal Mental Status: mental status grossly normal Assessment & Plan Assessment & Plan (1) Screen for colon cancer: Code(s): Z12.11 - Encounter for screening for malignant neoplasm of colon Plan Patient is refusing colonoscopy and Cologuard. Patient will follow-up with his PCP if he change his mind he will call our office. Currently he is not having any GI concerning symptoms and will follow-up with us on as-needed basis. He is agreeable to this plan and verbalizes understanding of instructions. He was given the opportunity to ask questions and all questions answered. Thank you for allowing me to participate in his care Coding Level of Care Code Est Pt Level 3 (58291) Diagnoses Screen for colon cancer Z12.11 Time Spent (min) 25 Comment 15 minutes spent with patient and additional 10 minutes spent reviewing his records
[2023-07-07 11:34] VITALS: BP 152/83; PULSE 122
== END 2023-07-07 12:05 | disposition home or self-care (01) ==
PROVIDERS: PCP Internal Medicine; Visit Provider Nurse Practitioner Family
DX: Z12.11 Encounter for screening for malignant neoplasm of colon (principal); Z01.818 Encounter for other preprocedural examination
CPT/HCPCS: 99213

== ENCOUNTER → 2023-07-07 11:18 | Outpatient (BNVA) | payer MEDICAID, SELFPAY | PROVIDERS: Visit Provider Nurse Practitioner Family | DX: Z01.818 Encounter for other preprocedural examination (principal) | CPT/HCPCS: 99212 ==

== ENCOUNTER 2023-12-09 15:45 | Outpatient (REF) | payer MEDICAID, SELFPAY ==
[2023-12-09 17:04] LABS: MANUAL DIFF FLAG NO
[2023-12-09 17:31] LABS: Alanine Aminotransferase 23 U/L (0-40); Albumin Level 4.2 g/dL (3.5-5.0); Alkaline Phosphatase 118 U/L (39-117); Anion Gap 13 (12-20); Aspartate Amino Transferase 19 U/L (5-37); Bilirubin Total 0.2 mg/dL (0.0-1.0); Blood Urea Nitrogen 13 mg/dL (9-16); Calcium 9.5 mg/dL (8.4-10.2); Carbon Dioxide 28 mmol/L (22-29); Chloride 106 mmol/L (96-108); Cholesterol 170 mg/dL (<200); Estimated Glomerular Filt Rate > 60; Glucose Random 77 mg/dL (60-115); HDL Cholesterol 49 mg/dL (>40); LDL Cholesterol Calculated 100 mg/dL (<100); Potassium 3.9 mmol/L (3.3-5.1); Sodium 143 mmol/L (135-145); Total Protein 7.3 g/dL (6.5-8.0); Triglycerides 106 mg/dL (<150)
[2023-12-09 17:35] LABS: Basophils Absolute Auto 0.1 X10*3/uL (0.0-0.2); Basophils Percent Auto 0.7 % (0-2); Eosinophils Absolute Auto 0.1 X10*3/uL (0.0-0.4); Eosinophils Percent Auto 1.5 % (0-4); Hematocrit 41.9 % (42.0-52.0); Imm Gran Abs Auto 0.04 X10*3/uL (0.00-0.03); Imm Gran Pct Auto 0.6 % (0.0-0.4); Lymphocytes Absolute Auto 2.7 X10*3/uL (1.2-4.9); Lymphocytes Percent Auto 37.5 % (20-40); Mean Corpuscular HGB Conc 33.4 g/dl (31.0-36.0); Mean Corpuscular Hemoglobin 30.7 pg (27.0-33.0); Mean Corpuscular Volume 91.9 fL (80.0-98.0); Mean Platelet Volume 9.4 fL (9.4-12.4); Monocytes Absolute Auto 0.6 X10*3/uL (0.1-1.2); Monocytes Percent Auto 8.7 % (2-11); Neutrophils Absolute Auto 3.7 x10*3/uL (2.0-8.3); Platelet Count 272 X10*3/uL (160-400); Red Blood Count 4.56 X10*6/uL (4.60-5.80); Red Cell Distribution Width 14.4 % (11.0-16.0); White Blood Count 7.2 X10*3/uL (4.8-10.8)
[2023-12-09 17:46] LABS: TSH reflex Free T4 1.71 uIU/mL (0.32-4.0)
[2023-12-09 17:58] LABS: Creatinine Urine 72.39 mg/dL; Microalbumin Urine < 5.0 mg/L
[2023-12-09 20:15] LABS: Reflex LDLD? No
[2023-12-10 03:53] LABS: HIV AB/AG Nonreactive (Nonreactive); HIV Num 1 0.06 S/CO (0.00-0.99)
[2023-12-12 06:44] LABS: HCV Log PCR <1.18 NOT DETECTED Log IU/mL (NOT DETECTED); HepC Viral Load <15 NOT DETECTED IU/mL (NOT DETECTED)
== END 2023-12-09 15:46 | disposition home or self-care (01) ==
LOC: HO.HHCL 15:45
PROVIDERS: Visit Provider Internal Medicine
DX: Z00.00 Encounter for general adult medical examination without abnormal findings (principal); E10.69 Type 1 diabetes mellitus with other specified complication
CPT/HCPCS: 36415; 80053; 80061; 82570; 84443; 85025; 87389; 87522

== ENCOUNTER 2023-12-12 10:16 | Outpatient (REF) | payer MEDICAID, SELFPAY ==
--- NOTE | ~2023-12-12 | XR_ITS ---
EXAMINATION: X-ray right wrist CLINICAL INFORMATION: Pain, fall 2 months ago. COMPARISON: None TECHNIQUE: 4 views FINDINGS: Normal bone mineralization. Alignment is anatomic. No visible acute fracture or dislocation. Scapholunate distance is maintained. Mild first CMC arthritis. No erosions. No abnormal soft tissue calcification. XR/XR wrist RT w scaphoid IMPRESSION: No radiographic evidence of acute fracture.
--- NOTE | ~2023-12-12 | XR_ITS ---
EXAMINATION: XR SHOULDER, RIGHT CLINICAL INFORMATION: Pain, fall 2 months ago. COMPARISON: None available. TECHNIQUE: AP external rotation, Grashey, scapular Y, and axillary views of the right shoulder. FINDINGS: No acute fracture or dislocation. Mild acromioclavicular arthritis. Glenohumeral alignment is anatomic with normal joint space. No abnormal soft tissue calcifications. XR/XR shoulder RT min 2V IMPRESSION: No evidence of acute fracture. Mild acromioclavicular arthritis.
== END 2023-12-12 10:17 | disposition home or self-care (01) ==
LOC: HO.HHCX 10:16
PROVIDERS: Visit Provider Internal Medicine
DX: M25.511 Pain in right shoulder (principal); M25.531 Pain in right wrist; G89.29 Other chronic pain
CPT/HCPCS: 73030; 73110

== ENCOUNTER 2024-07-30 13:13 | Outpatient (AMB) | payer MEDICAID, SELFPAY ==
[2024-07-30 13:15] VITALS: BP 140/72; PULSE 72; BMI 32.9
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
--- OUTSIDE RECORDS SUMMARY | 2024-07-30 15:08 | XMS_ITS | Encounter Summary ---
Author Organization [employer] Address [address] [facility] 7t [place] [address] Care Team Providers Care Health Club Attendant Name Role Phone Siobhan Gregory MD Primary Care Provide r Reason for Referral * Consultation (STAT) - Authorized Specialty Diagnoses / Procedures Referred By Rosalinda t Referred To Contact General Surgery Diagnoses Epidermal cyst Mulu Garrett DO [address] [place] [address] Phone: tel: fax: [facility] General Surgeons [address] [place] [address] [address] [place], [place] Phone: tel: fax: Referral ID Status Reason Start Date Expiration Date Visits Requested Visits Authorized [id number] Authorized Specialty Services Required 07/19/2024 07/19/2025 12 12 Encounter Details Date Type Department Care Team (Late st Contact Info) Description 07/18/2024 Orders Only [facility] MEDICINE [address] [place] [address] Mulu Garrett DO [address] [place] [address] Epidermal cyst (Primary Dx) Social History Tobacco Use Types Packs/Day Years Used Date Smoking Tobacco: Never Passive Smoke Exposure: Never Smokeless Tobacco: Never Depression Answer Date Recorded Patient Health Questionnaire-9 Score 18 01/23/2024 Patient Health Questionnaire-9 Score 18 01/23/2024 Last PHQ-9: Questionnaire Data Not on file 0 01/23/2024 Housing Stability Answer Date Recorded What is your housing situation today? I have vinicius wilkes 04/08/[address] you li ve. Do you have problems with any of the following? None of the above 04/08/2023 Food Insecurity Answer Date Recorded Within the past 12 months, y ou worried that your food would run out before you got money to buy more: Never True 04/08/2023 Within the past 12 months,th e food you bought just didn't last and you didn't have enough money to get more: Never True 08/2022 Transportation Answer Date Recorded In the past 12 months, has l ack of transportation kept you from medical appts, meetings, work or from getting things needed for daily living? No 04/08/2023 Utilities Answer Date Recorded In the past 12 months, has t he electric, gas, oil or water company threatened to shut off services in your home? No 04/08/2023 Depression Answer Date Recorded Patient Health Questionnaire-2 Score 3 01/23/2024 Internet Access Answer Date Recorded Internet Access Q1 Yes 07/18/2024 Internet Access Q2 Not on file 07/18/2024 Sex and Gender Information Value Date Recorded Sex Assigned at Male 04/05/2022 10:17 AM EDT Legal Sex Male 10:17 AM EDT Gender Identity Male 04/05/2022 10:17 AM EDT Sexual Orientation Straight 04/05/2022 10 :17 AM EDT documented as of this encounter Progress Notes * Mulu Garrett DO - 07/18/2024 2:19 PM EST GS referral ordered. documented in this encounter Plan of Treatment Upcoming Encounters Date Type Department Care Team (Late st Contact Info) Description 08/01/2024 2:45 PM EST Office Visit [facility] MED[facility]INE [address] [place] [address] Siobhan Gregory MD [address] [place], [place] [phone] Scheduled Referrals Name Type Priority Associated Diagnoses Orde r Schedule Referral to General Surgery Outpatient Referral STAT Epidermal cyst Expected: 07/18/2024 (Approximate), Expires: 07/18/2025 documented as of this encounter Visit Diagnoses Diagnosis Epidermal cyst- Primary Sebaceous cyst documented in this encounter Additional Health Concerns Assessment Noted Time PHQ-9 Depression Total Score: 18 01/22/ 024 2:19 PM EDT documented as of this encounter Care Teams Health Club Attendant Relationship Specialty Start Date End Date Siobhan Gregory MD [address] [place] [id number] PCP - General Family Medicine 01/01/19 Paty Farmer Leather StakerShop Coordinator 12/07/23 documented as of this encounter
--- OUTSIDE RECORDS SUMMARY | 2024-07-30 15:08 | XMS_ITS | Encounter Summary ---
Author Organization [employer] Address 75 [facility] 7t [place] [address] Care Team Providers Care Certified Nursing Assistant Name Role Phone Siobhan Gregory MD Primary Care Provide r Reason for Visit * Reason Comments Med Refill Encounter Details Date Type Department Care Team (Late st Contact Info) Description 12/09/2022 Refill [facility] MEDICINE [address] [place], [place] [phone] Siobhan Gregory MD [address] [place], [place] [phone] Type 1 diabetes mellitus with other specified complication (CMS/HCC) Social History Tobacco Use Types Packs/Day Years Used Date Smoking Tobacco: Never Passive Smoke Exposure: Never Smokeless Tobacco: Never Depression Answer Date Recorded Patient Health Questionnaire-9 Score 20 12/06/2022 Depression Answer Date Recorded Patient Health Questionnaire-2 Score 4 12/06/2022 Sex and Gender Information Value Date Recorded Sex Assigned at Male 04/05/2022 10:17 AM EDT Legal Sex Male 10:17 AM EDT Gender Identity Male 04/05/2022 10:17 AM EDT Sexual Orientation Straight 04/05/2022 10 :17 AM EDT COVID-19 Exposure Response Date Recorded In the last 10 days, have yo u been in contact with someone who was confirmed or suspected to have Coronavirus/COVID-19? No / Unsure 12/06/2022 10:16 AM EDT documented as of this encounter Plan of Treatment Upcoming Encounters Date Type Department Care Team (Late st Contact Info) Description 08/01/2024 2:45 PM EST Office Visit [facility] MEDICINE [address] [place], [place] [phone] Siobhan Gregory MD [address] [place], [place] [phone] documented as of this encounter Visit Diagnoses Diagnosis Type 1 diabetes mellitus with other specified complication (CMS/HCC) documented in this encounter Additional Health Concerns Assessment Noted Time PHQ-9 Depression Total Score: 20 023 10:41 AM EDT documented as of this encounter Care Teams Certified Nursing Assistant Relationship Specialty Start Date End Date Siobhan Gregory MD [address] [place] [address] PCP - General Family Medicine 01/01/19 Paty Farmer Baby AttendantPackage Yarns Drying Machine Operator 12/07/23 documented as of this encounter
--- OUTSIDE RECORDS SUMMARY | 2024-07-30 15:08 | XMS_ITS | Encounter Summary ---
Author Organization [employer] Address [address] [facility] 7t [place] [address] Care Team Providers Care Meat Carrier Name Role Phone Siobhan Gregory MD Primary Care Provide r Encounter Details Date Type Department Care Team ([facility] st Contact Info) Description 07/18/2024 Telephone [facility] MEDICINE [address] [place], [place] [phone] Kareen Rodriguez RN [address] [place], [place] [phone] Social History Tobacco Use Types Packs/Day Years [...] AM EDT documented as of this encounter Miscellaneous Notes * Telephone Encounter - Kareen Rodriguez RN - 07/18/2024 11:27 AM EST Images from the original note were not included. Triage call with [facility] [id number]. Pt was called x2 regarding Pt portal message below. Leaf Tier left voice message to call [facility] triage line at [phone]. Tiffanie Vasquez Medicine Red Team Nurses; Tad Vasquez Triage Nurse Good Morning, this patient was called for PVP screening and currently reports feeling upset in regards to last encounter visit 07/03/2024 with provider. Patient reported he came in to be seen for painful inflammation of finger which is currently getting worse and larger and was told I have to be seen with a surgeon at [facility] for this patient stated I am still waiting for the referral I haven't heard anything about it since my last visit there and this is getting painfully worse patient was informed by chart writer message will be sent to team and triage. documented in this encounter Plan of Treatment Upcoming Encounters Date Type Department Care Team (Late st Contact Info) Description 08/01/2024 2:45 PM EST Office Visit [facility] MEDICINE [address] [place], [place] [phone] Siobhan Gregory MD [address] [place], [place] [phone] documented as of this encounter Visit Diagnoses Not on filedocumented in this encounter Additional Health Concerns Assessment Noted Time PHQ-9 Depression Total Score: 18 01/22/ 024 2:19 PM EDT documented as of this encounter Care Teams Meat Carrier Relationship Specialty Start Date End Date Siobhan Gregory MD [address] [place] [address] PCP - General Family Medicine 01/01/19 Paty Farmer Senior Communications SpecialistDictaphone Transcriber 12/07/23 documented as of this encounter
--- OUTSIDE RECORDS SUMMARY | 2024-07-30 15:08 | XMS_ITS | Encounter Summary ---
Author Organization [employer] Address [address] [facility] 7t [place] [address] Care Team Providers Care Statement Clerk Name Role Phone Siobhan Gregory MD Primary Care Provide r Reason for Visit * Reason Comments Med Refill Encounter Details Date Type Department Care Team ([facility] st Contact Info) Description 07/17/2024 Refill [facility] MEDICINE [address] [place], [place] [phone] Siobhan Gregory MD [address] [place], [place] [phone] Type 1 diabetes mellitus with other specified [...] Description 08/01/2024 2:45 PM EST Office Visit [facility] MEDICINE [address] [place] [phone] Siobhan Gregory MD [address] [place] [address] documented as of this encounter Visit Diagnoses Diagnosis Type 1 diabetes mellitus with other specified complication (CMS/HCC) documented in this encounter Additional Health Concerns Assessment Noted Time PHQ-9 Depression Total Score: 18 024 2:19 PM EDT documented as of this encounter Care Teams Statement Clerk Relationship Specialty Start Date End Date Siobhan Gregory MD [address] [place] [id number] PCP - General Family Medicine 01/01/19 Paty Farmer Java Development Team LeadSpecial Event Assistant 12/07/23 documented as of this encounter
--- OUTSIDE RECORDS SUMMARY | 2024-07-30 15:08 | XMS_ITS | Encounter Summary ---
Author Organization [employer] Address [address] [facility] 7t [place] [address] Care Team Providers Care Chin Strap Cutter Name Role Phone Siobhan Gregory MD Primary Care Provide r Reason for Visit * Reason Onset Date Comments Referral 07/18/2024 Encounter Details Date Type Department Care Team ([facility] st Contact Info) Description 07/18/2024 Telephone [facility] MEDICINE [address] [place], [place] [phone] Na Encarnacion RN [address] [place], [place] [phone] Referral Social History Tobacco Use Types Packs/Day Years [...] encounter Miscellaneous Notes * Telephone Encounter - Na Encarnacion RN - 07/18/2024 12:04 PM EST Please see below. Patient was referred to [facility] GS on 07/03/24 however the referral was closed d/t OV notes not being completed. OV note from 07/03/24 are now signed. Please process referral. Thank you! ----- Message from Tiffanie Roman sent at 07/18/2024 10:20 AM EST ----- Regarding: pain and inflamation of index finger Good Morning, this patient was called for PVP screening and currently reports feeling upset in regards to last encounter visit 07/03/2024 with provider. Patient reported he came in to be seen for painful inflammation of finger which is currently getting worse and larger and was told I have to be seen with a surgeon at [facility] for this patient stated I am still waiting for the referral I haven't heard anything about it since my last visit there and this is getting painfully worse patient was informed by account underwriter message will be sent to team and triage. documented in this encounter Plan of Treatment Upcoming Encounters Date Type Department Care Team (Late st Contact Info) Description 08/01/2024 2:45 PM EST Office Visit [facility] MEDICINE [address] [place] [phone] Siobhan Gregory MD [address] [place] [address] documented as of this encounter Visit Diagnoses Not on filedocumented in this encounter Additional Health Concerns Assessment Noted Time PHQ-9 Depression Total Score: 18 01/22/2 024 2:19 PM EDT documented as of this encounter Care Teams Chin Strap Cutter Relationship Specialty Start Date End Date Siobhan Gregory MD [address] [place] [address] PCP - General Family Medicine 01/01/19 Paty Farmer Aws DeveloperAnimal Care Giver 12/07/23 documented as of this encounter
--- OUTSIDE RECORDS SUMMARY | 2024-07-30 15:08 | XMS_ITS | Encounter Summary ---
Author Organization [employer] Address [address] [facility] 7t [place] [address] Care Team Providers Care Cat Scan Tech Name Role Phone Siobhan Gregory MD Primary Care Provide r Encounter Details Date Type Department Care Team ([facility] st Contact Info) Description 06/07/2023 Orders Only [facility] [address] [place] [address] Mulu Lewis LPN Social History Tobacco Use Types Packs/Day Years Used Date Smoking Tobacco: Never Passive Smoke Exposure: Never Smokeless Tobacco: Never Depression Answer Date Recorded Patient Health Questionnaire-9 Score 20 12/06/2022 Housing Stability Answer Date Recorded What is [...] Description 08/01/2024 2:45 PM EST Office Visit [facility] MEDICINE [address] [place] [address] Siobhan Gregory MD [address] [place] [address] documented as of this encounter Visit Diagnoses Not on filedocumented in this encounter Additional Health Concerns Assessment Noted Time PHQ-9 Depression Total Score: 20 023 10:41 AM EDT documented as of this encounter Care Teams Cat Scan Tech Relationship Specialty Start Date End Date Siobhan Gregory MD [address] [place] [id number] PCP - General Family Medicine 01/01/19 Paty Farmer Welding Machine Operator ThermitHead Buyer Tobacco 12/07/23 documented as of this encounter
--- OUTSIDE RECORDS SUMMARY | 2024-07-30 15:08 | XMS_ITS | Encounter Summary ---
Author Organization [employer] Address [address] [facility] 7t [place] [address] Care Team Providers Care Plaster Caster Name Role Phone Siobhan Gregory MD Primary Care Provide r Reason for Visit * Reason Comments Med Refill Encounter Details Date Type Department Care Team ([facility] st Contact Info) Description 04/23/2024 Refill [facility] MEDICINE [address] [place], [place] [phone] Siobhan Gregory MD [address] [place], [place] [phone] Other specified hypothyroidism; Type 1 diabetes mellitus with other specified complication (CMS/HCC); Chronic pain in right shoulder; Heartburn Social History Tobacco Use Types Packs/Day Years [...] Recorded Patient Health Questionnaire-2 Score 3 01/23/2024 Sex and Gender Information Value Date Recorded [...] 2:45 PM EST Office Visit [facility] MEDICINE [address] [place] [address] Siobhan Gregory MD [address] [place] [address] documented as of this encounter Visit Diagnoses Diagnosis Other specified hypothyroidism Type 1 diabetes mellitus with other specified complication (CMS/HCC) Chronic pain in right shoulder Pain in joint, shoulder region Heartburn documented in this encounter Additional Health Concerns Assessment Noted Time PHQ-9 Depression Total Score: 18 024 2:19 PM EDT documented as of this encounter Care Teams Plaster Caster Relationship Specialty Start Date End Date Siobhan Gregory MD [address] [place] [address] PCP - General Family Medicine 01/01/19 Paty Farmer Preflight MechanicRailway Signal Operator 12/07/23 documented as of this encounter
--- OUTSIDE RECORDS SUMMARY | 2024-07-30 15:08 | XMS_ITS | Encounter Summary ---
Author Organization [employer] [facility] Address [address] [facility] 7t [place] [address] Care Team Providers Care Rural Health Consultant Name Role Phone Siobhan Gregory MD Primary Care Provide r Reason for Visit * Reason Comments Med Refill Encounter Details Date Type Department Care Team (Late st Contact Info) Description 07/27/2022 Refill [facility] [address] [place] [address] [phone] Michelle Laboy MD [address] [place] [phone] Other specified hypothyroidism Social History Tobacco Use Types Packs/Day Years Used Date Smoking Tobacco: Never Assessed Sex and Gender Information Value Date Recorded Sex Assigned at Male 04/05/2022 10:17 AM EDT Legal Sex Male 10:17 AM EDT Gender Identity Male 04/05/2022 10:17 AM EDT Sexual Orientation Straight 04/05/2022 10 :17 AM EDT documented as of this encounter Plan of Treatment Upcoming Encounters Date Type Department Care Team (Late st Contact Info) Description 08/01/2024 2:45 PM EST Office Visit [facility] MEDICINE [address] [place] [address] Siobhan Gregory MD [address] [place] [address] documented as of this encounter Visit Diagnoses Diagnosis Other specified hypothyroidism documented in this encounter Care Teams Rural Health Consultant Relationship Specialty Start Date End Date Siobhan Gregory MD [address] [place] [address] [phone] PCP - General Family Medicine 01/01/19 Paty Farmer Wildlife Management ProfessorBarkeep 12/07/23 documented as of this encounter
--- OUTSIDE RECORDS SUMMARY | 2024-07-30 15:08 | XMS_ITS | Encounter Summary ---
Author Organization [employer] Address [address] [facility] 7t [place] [address] Care Team Providers Care Border Patrol Agent Name Role Phone Siobhan Gregory MD Primary Care Provide r Encounter Details Date Type Department Care Team (Latest Contact Info) Description 07/03/2024 Travel Social History Tobacco Use Types Packs/Day Years [...] Description 08/01/2024 2:45 PM EST Office Visit [facility] MEDICINE [address] [place] [address] Siobhan Gregory MD [address] [place] [address] documented as of this encounter Visit Diagnoses Not on filedocumented in this encounter Additional Health Concerns Assessment Noted Time PHQ-9 Depression Total Score: 18 01/22/ 024 2:19 PM EDT documented as of this encounter Care Teams Border Patrol Agent Relationship Specialty Start Date End Date Siobhan Gregory MD [address] [place] [address] PCP - General Family Medicine 01/01/19 Paty Farmer Certified Prosthetist/OrthotistFire Alarm Operator 12/07/23 documented as of this encounter
--- OUTSIDE RECORDS SUMMARY | 2024-07-30 15:08 | XMS_ITS | Encounter Summary ---
Author Organization [employer] Address [address] [facility] 7t [place] [address] Care Team Providers Care Pin Game Machine Inspector Name Role Phone Siobhan Gregory MD Primary Care Provide r Reason for Visit * Reason Comments Med Refill Encounter Details Date Type Department Care Team (Late st Contact Info) Description 06/07/2023 Refill [facility] MEDICINE [address] [place], [place] [phone] Christy Long FNP [address] [place], [place] [phone] Social History Tobacco Use Types Packs/Day Years [...] Description 08/01/2024 2:45 PM EST Office Visit [facility] MEDICINE [address] [place] [address] Siobhan Gregory MD [address] [place] [address] documented as of this encounter Visit Diagnoses Not on filedocumented in this encounter Additional Health Concerns Assessment Noted Time PHQ-9 Depression Total Score: 20 023 10:41 AM EDT documented as of this encounter Care Teams Pin Game Machine Inspector Relationship Specialty Start Date End Date Siobhan Gregory MD [address] [place] [address] PCP - General Family Medicine 01/01/19 Paty Farmer Design InserterFreezer Tunnel Operator 12/07/23 documented as of this encounter
--- OUTSIDE RECORDS SUMMARY | 2024-07-30 15:08 | XMS_ITS | Clinical Summary ---
Author Organization [employer] Address [address] [facility] [address] [place] [address] Care Team Providers Care Money Position Officer Name Role Phone Siobhan Gregory MD Primary Care Provide r Allergies Active Allergy Reactions Criticality Noted Date Comments Joni Inhibitors Cough 01/05/2013 Simvastatin 06/02/2010 Other reaction(s): increased LFTs Medications Insulin Lispro 100 UNIT/ML solution INJECT 5 UNITS BEFORE MEALS IF SUGAR 150-250. INJECT 8 UNITS BEFORE MEALS IF SUGAR MORE THAN 250. 30 mL 5 024 Active famotidine (Pepcid) 40 MG tabletIndications :Heartburn TAKE 1 TABLET BY MOUTH EVERYDAY AT BEDTIME 90 tablet 1 Active glucose blood (FreeStyle [employer] Test) test stripIndications: Type 1 diabetes mellitus with other specified complication (CMS/HCC) Check by fingerstick route up to 7 times a day. 200 each Active amLODIPine (Norvasc) 5 MG tabletIndications :Primary hypertension Take 1 tablet (5 mg) by mouth Once per day. 30 tablet 024 2024 Active hydrALAZINE (Apresoline) 25 MG tabletIndications :Pruritus Take one tablet every 8 hours as needed for itchiness 30 tablet Active insulin glargine (Lantus) 100 UNIT/ML injectionIndicati ons:Type 1 diabetes mellitus with other specified complication (CMS/HCC) 35 U AM and 10 U PM inject subcutaneous 20 mL 3 Active Blood Pressure Monitoring (Blood Pressure Cuff) miscIndications:P rimary hypertension 1 each Once daily. 1 each 024 Active losartan (Cozaar) 100 MG tabletIndications :Benign hypertension TAKE 1 TABLET BY MOUTH EVERY DAY IN THE MORNING 90 tablet 1 024 Active Aspirin Low Dose 81 MG EC tabletIndications :Type 1 diabetes mellitus with other specified complication (CMS/HCC) TAKE 1 TABLET (81 MG) BY MOUTH ONCE PER DAY. 90 tablet 1 024 Active Insulin Lispro (HumaLOG) 100 UNIT/ML solutionIndicatio ns:Type 1 diabetes mellitus with other specified complication (CMS/HCC) Inject 0.1 mL (10 Units) as directed before breakfast AND 0.05 mL (5 Units) before lunch AND 0.05 mL (5 Units) before evening meal. 6 mL 2 Active cyclobenzaprine (Flexeril) 10 MG tabletIndications :Chronic pain in right shoulder Take 1 tablet (10 mg) by mouth if needed in the morning, at noon, and at bedtime for muscle spasms (take one tablet only if pain). 30 tablet 1 024 Active levothyroxine (Synthroid, Levoxyl) 112 MCG tabletIndications :Other specified hypothyroidism TAKE 1 TABLET BY MOUTH EVERY DAY BEFORE BREAKFAST 90 tablet 1 024 Active Acetaminophen Extra Strength 500 MG tabletIndications :Acute pain of right shoulder TAKE 2 TABLETS BY MOUTH EVERY 8 HOURS NEEDED (TAKE 2 TABLETS EVERY 8 HOURS FOR PAIN ONLY) 30 tablet 024 Active atorvastatin (Lipitor) 40 MG tabletIndications :Type 1 diabetes mellitus with other specified complication (CMS/HCC) TAKE 1 TABLET BY MOUTH AT BEDTIME 90 tablet 1 025 Active insulin syringe-needle U-100 (BD Insulin Syringe U/F) 31G X 5/16 0.5 mL miscIndications:T ype 1 diabetes mellitus with other specified complication (CMS/HCC) USE DIRECTED 4 TIMES DAILY 100 each 3 025 Active insulin syringe-needle U-100 (BD Insulin Syringe U/F) 31G X 5/16 0.5 mL miscIndications:T ype 1 diabetes mellitus with other specified complication (CMS/HCC) INJECT 1 BY SUBDERMAL ROUTE 4 TIMES EVERY DAY FOR USE WITH HUMALOG 100 each 3 024 2024 Discontinued atorvastatin (Lipitor) 40 MG tabletIndications :Type 1 diabetes mellitus with other specified complication (CMS/HCC) Take 1 tablet (40 mg) by mouth at bedtime. 90 tablet 1 024 2024 Discontinued Active Problems Problem Noted Date Diagnosed Date Chronic right-sided thoracic back pain Assessment & Plan (04/24/2024 3:24 PM EST): Acetaminophen and flexeril prescribed Counseling about cyclobenzaprine side effects done, he is aware of somnolence, do not drive while on this medication Pruritus 01/23/2024 Assessment & Plan (01/25/2024 10:20 AM EDT): Labs where reviewed with patient I will prescribe hydroxyzine PRN for pruritus Colon cancer screening 12/09/2023 Chronic pain in right shoulder 12/09/2023 Right wrist pain 12/09/2023 Bilateral foot pain 12/09/2023 Decreased hearing of right ear 10/20/2023 Excessive cerumen in ear canal 10/20/2023 Acute pain of right shoulder 10/20/2023 Assessment & Plan (10/20/2023 4:33 PM EDT): Apply heat on affected area Acetaminophen PRN Flexeril 10mg Q 8hrs, patient is aware of side effect somnolence Acute right-sided thoracic back pain 01/13/2023 Sinus tachycardia 01/13/2023 Assessment & Plan (01/13/2023 2:00 PM EDT): I have notice multiple visits his HR high (sinus tachycardia), I will refer patient to cardiology, he denies dizziness, palpitations, chest pain, anxiety... Encounter for preventive health examination 08/2022 Assessment & Plan (12/09/2023 3:36 PM EDT): See HPI Assessment & Plan (12/06/2022 11:15 AM EDT): Please see HPI Skin tag 11/03/2022 Dry eyes 11/02/2022 Mood disorder 11/02/2022 Chronic back pain 11/02/2022 Chronic left shoulder pain 11/02/2022 Mild epistaxis 05/16/2018 Chronic thoracic back pain 05/16/2018 Gastroesophageal reflux disease 11/17/2017 Anemia 11/17/2017 Type 1 diabetes mellitus 10/25/2017 Assessment & Plan (04/24/2024 3:23 PM EST): Diabetes is: controlled - Lab Results Component Value Date HGBA1C 5.4 04/24/2024 HGBA1C 5.8 10/20/2023 HGBA1C 5.6 04/08/2023 - Lab Results Component Value Date MICROALBUR <5.0 12/09/2023 CREATININE 0.80 12/09/2023 -Changes: none - Diabetic eye exam:referral done - Diabetic foot exam:referral done - Continue lifestyle modifications - Continue current medications - Follow up: 3 months Assessment & Plan (01/25/2024 10:22 AM EDT): Diabetes is: controlled - Lab Results Component Value Date HGBA1C 5.8 10/20/2023 HGBA1C 5.6 04/08/2023 HGBA1C 6.2 (A) 11/03/2022 - Lab Results Component Value Date MICROALBUR <5.0 12/09/2023 CREATININE 0.80 12/09/2023 -Changes: none - Diabetic eye exam:referral done - Diabetic foot exam:referral done - Continue lifestyle modifications - Continue current medications - Follow up: 3 months Assessment & Plan (10/20/2023 4:34 PM EDT): Diabetes is: controlled - Lab Results Component Value Date HGBA1C 5.8 10/20/2023 HGBA1C 5.6 04/08/2023 HGBA1C 6.2 (A) 11/03/2022 - Lab Results Component Value Date CREATININE 0.86 11/03/2022 -Changes: none, I call pharamcy I put all his refills and his insulin is approved by insurance - Diabetic eye exam:up to date - Diabetic foot exam:pending - Continue lifestyle modifications - Continue current medications - Follow up: 3 months Assessment & Plan (07/21/2023 2:49 PM EST): Diabetes is: controlled - Lab Results Component Value Date HGBA1C 5.6 04/08/2023 HGBA1C 6.2 (A) 11/03/2022 HGBA1C 5.7 (H) 11/05/2021 - Lab Results Component Value Date CREATININE 0.86 11/03/2022 -Changes: none - Diabetic eye exam:up to date - Diabetic foot exam:pending - Continue lifestyle modifications - Continue current medications - Follow up: 3 months Assessment & Plan (04/08/2023 4:44 PM EDT): Lab Results Component Value Date HGBA1C 5.6 04/08/2023 HGBA1C 6.2 (A) 11/03/2022 HGBA1C 5.7 (H) 11/05/2021 - Lab Results Component Value Date CREATININE 0.86 11/03/2022 - Diabetic eye exam:up to date - Diabetic foot exam:up to date - Continue lifestyle modifications - Continue current medications Assessment & Plan (01/13/2023 2:02 PM EDT): - Lab Results Component Value Date HGBA1C 6.2 (A) 11/03/2022 HGBA1C 5.7 (H) 11/05/2021 - Lab Results Component Value Date CREATININE 0.86 11/03/2022 - Diabetic eye exam: up to date (done outside facility, as per patient) - Diabetic foot exam: pending - Continue lifestyle modifications - Continue current medications: Lantus 35U at bed time, lispro 10-5-5 Assessment & Plan (12/06/2022 11:14 AM EDT): Continue with current interventions Assessment & Plan (11/03/2022 12:43 PM EDT): - Lab Results Component Value Date HGBA1C 6.2 (A) 11/03/2022 HGBA1C 5.7 (H) 11/05/2021 - Lab Results Component Value Date CREATININE 0.91 12/27/2020 - Diabetic eye exam: up to date - Diabetic foot exam: pending - Continue lifestyle modifications - Continue current medications - Hyperlipidemia 10/25/2017 Seizure disorder 10/25/2012 Multiple joint pain 11/22/2011 Assessment & Plan (04/08/2023 4:46 PM EDT): Patient reports is difficult for hm to do his activities at home I ask for him to request evaluation for more [employer] hours Depressive disorder 11/22/2011 Primary hypertension 11/22/2011 Assessment & Plan (04/24/2024 3:22 PM EST): - Aerobic exercise to reduce BP. Initial goal of 30 min walk 3-5x/week. Increase as tolerated. - low-sodium diet (goal: <2g/day) and heart healthy diet such as DASH to reduce BP and prevent ASCVD. - Home BP monitoring 1-2 x day with goal of <140/90. - Seek immediate medical attention for chest pain, palpitations, SOB, syncope, or sudden changes in mental status. - Do not change or discontinue current prescriptions without first consulting health care provider Assessment & Plan (01/25/2024 10:21 AM EDT): Maintenance: BMP: up to date Lipid Panel: up to date ASCVD Risk: on atorvastatin 40mg daily - Aerobic exercise to reduce BP. Initial goal of 30 min walk 3-5x/week. Increase as tolerated. - low-sodium diet (goal: <2g/day) and heart healthy diet such as DASH to reduce BP and prevent ASCVD. - Home BP monitoring 1-2 x day with goal of <140/90. - Seek immediate medical attention for chest pain, palpitations, SOB, syncope, or sudden changes in mental status. - Do not change or discontinue current prescriptions without first consulting health care provider Assessment & Plan (07/21/2023 2:48 PM EST): -Ii discontinue amlodipine and I instructed to only take losartan and report hoa to me on next appointment if there is any side effect - Aerobic exercise to reduce BP. Initial goal of 30 min walk 3-5x/week. Increase as tolerated. - low-sodium diet (goal: <2g/day) and heart healthy diet such as DASH to reduce BP and prevent ASCVD. - Home BP monitoring 1-2 x day with goal of <140/90. - Seek immediate medical attention for chest pain, palpitations, SOB, syncope, or sudden changes in mental status. - Do not change or discontinue current prescriptions without first consulting health care provider Assessment & Plan (04/08/2023 4:44 PM EDT): - Aerobic exercise to reduce BP. Initial goal of 30 min walk 3-5x/week. Increase as tolerated. - low-sodium diet (goal: <2g/day) and heart healthy diet such as DASH to reduce BP and prevent ASCVD. - Home BP monitoring 1-2 x day with goal of <140/90. - Seek immediate medical attention for chest pain, palpitations, SOB, syncope, or sudden changes in mental status. - Do not change or discontinue current prescriptions without first consulting health care provider Assessment & Plan (12/06/2022 11:14 AM EDT): Not controlled, patient has being having headaches, denies chest pain, SOB, weakness, numbness or other symptoms C/w losartan 100mg, I added today amlodipine 5mg daily RTC 2 weeks with nurse for BP check Assessment & Plan (11/03/2022 12:41 PM EDT): Maintenance: BMP: ordered today Lipid Panel: ordered today ASCVD Risk: Calculate pending updated labs - Aerobic exercise to reduce BP. Initial goal of 30 min walk 3-5x/week. Increase as tolerated. - low-sodium diet (goal: <2g/day) and heart healthy diet such as DASH to reduce BP and prevent ASCVD. - Home BP monitoring 1-2 x day with goal of <140/90. - Seek immediate medical attention for chest pain, palpitations, SOB, syncope, or sudden changes in mental status. -I discontinue valsarta and started losartan 100mg - Do not change or discontinue current prescriptions without first consulting health care provider RTC 2 weeks with nurse for BP check and 3 months with me Pure hypercholesterolemia 09/15/2011 Acquired hypothyroidism 09/15/2011 Encounters Date Type Department Care Team Description 07/18/2024 Orders Only [facility] [address] [place] [address] [phone] Mulu Garrett DO Epidermal cyst (Primary Dx) 07/18/2024 Telephone [facility] [address] [place] [address] [phone] Na Encarnacion, personal clothing laundry aide 07/18/2024 Telephone [facility] [address] [place] [address] [phone] Kareen Rodriguez, LINDA 07/18/2024 Patient Outreach [facility] [address] [place] [address] [phone] Siobhan Gregory MD Pre-visit Planning (SDOH screening negative and tobacco screening negative) 07/17/2024 Refill [facility] [address] [place] [address] [phone] Siobhan Gregory MD Type 1 diabetes mellitus with other specified complication (CMS/HCC) 07/03/2024 11:45 AM EST Office Visit [facility] [address] [place] [address] [phone] Mulu Garrett DO Epidermal cyst (Primary Dx); Skin tag 07/03/2024 Travel 07/02/2024 Telephone [facility] [address] [place] [address] [phone] Siobhan Gregory MD Nurse Triage 06/03/2024 Refill [facility] [address] [place] [address] [phone] Siobhan Gregory MD Acute pain of right shoulder 05/23/2024 Refill [facility] [address] [place] [address] [phone] Siobhan Gregory MD Other specified hypothyroidism from Last 3 Months Immunizations Name Administration Dates Next Due Influenza Injectable Quadriv alant Preservative Free IIV4 MDCK 01/25/2023,03/07/2022,02/15/2018,03/02 Influenza injectable quadriv alent IIV4 with preservative 04/15/2015 Influenza injectable quadriv alent preservative free 02/02/2021,02/08/2020,01/28/2019,04/01 Influenza, IIV3, injectable 03/05/2011,0 03/03/2010,04/06/2007,04/07,05/05/2005 Influenza, Split (incl. samantha fied surface antigen) 03/09/2013,03/14/2012 Influenza, seasonal, injecta ble, preservative free 03/16/2024 Pfizer Covid-19 Vaccine 12+ 03/16/2024 Pneumococcal Conjugate PCV 20 01/25/2023 Pneumococcal Polysaccharide PPSV23 05/05/2005 TD (adult), 2 Lf tetanus tox oid, preservative free, adsorbed 10/03/2008 Tdap 03/03/2023,02/08/2023 Zoster, Recombinant 02/08/2023,12/06/2022 Social History Tobacco Use Types Packs/Day Years Used Date Smoking Tobacco: Never Passive Smoke Exposure: Never Smokeless Tobacco: Never Tobacco Cessation:Counseling Given: Not Answered Depression Answer Date Recorded Patient Health Questionnaire-9 [...] Orientation Straight 04/05/2022 10 :17 AM EDT Last Filed Vital Signs Vital Sign Reading Time Taken Comments Blood Pressure 145/83 07/03/2024 11:56 AM EST Pulse 115 07/03/2024 11:56 AM EST Temperature 36.4 ??C (97.5 ??F) 07/03/2024 11:[address] Respiratory Rate 16 07/03/2024 11:56 AM EST Oxygen Saturation 97% 04/24/2024 2:37 PM EST Inhaled Oxygen Concentration - - Weight 74.2 kg (163 lb 8 oz) 07/03/2024 11:56 AM EST Height 149.9 cm (4' 11 ) 07/03/2024 11:56 AM EST Body Mass Index 33.02 07/03/2024 11:56 AM EST Plan of Treatment Upcoming Encounters Date Type Department Care Team (Late st Contact Info) Description 08/01/2024 2:45 PM EST Office Visit [facility] [address] [place] [phone] Siobhan Gregory MD [address] [place] [address] Health Maintenance Due Date Last Done Comments CT Colonography 1961 Colonoscopy 1961 FIT DNA/Cologuard 1961 FOBT 1961 Sigmoidoscopy 1961 Diabetes: Foot Exam 1971 Eye Exam 1971 RSV Patients and Patients Aged 60 years or older (1 - Risk 60-74 years 1-dose series) 2021 Colorectal Cancer Screening 07/21/2023 FIT 07/21/2023 07/21/2022 Depression Monitoring (PHQ-9) 07/25/2024 01/23/2024, 01/23/2024 Diabetes: Hemoglobin A1C 10/22/20242 024, 10/20/2023, 04/08/2023, Additional history exists Diabetes: Urine Protein Screening 12/08/2024 12/09/2023, 11/03/2022 Lipid Panel 12/08/2024 12/09/2023, 05/3 06/2022, 11/05/2021, Additional history exists Depression Screening 01/22/2025 01/23/2024, 01/23/20 Alcohol/Substance Use Screening 04/24/2025 04/24/2024 Tobacco Screening 07/03/2025 07/03/2024 SDOH Screening 07/18/2025 07/18/2024 DTaP/Tdap/Td Vaccines (3 - Td or Tdap) 03/03/2033 03/03/2023, 02/08/2023, 10/03/2008 Pneumococcal Vaccine: 50+ Years Completed 01/25/2023, 05/05/2005 Zoster Vaccines Completed 02/08/2023, 12/06/2022 HIV Screening Completed 12/09/2023 Hepatitis C Screening Completed 12/09/2023 COVID-19 Vaccine Completed 03/16/2024, , 09/02/2020, Additional history exists Influenza Vaccine Completed 03/16/2024, , 03/07/2022, Additional history exists HIB Vaccines Aged Out No longer eligi ble based on patient's age to complete this topic HPV Vaccines Aged Out No longer eligi ble based on patient's age to complete this topic Hepatitis A Vaccines Aged Out No long er eligible based on patient's age to complete this topic Hepatitis B Vaccines Aged Out No long er eligible based on patient's age to complete this topic IPV Vaccines Aged Out No longer eligi ble based on patient's age to complete this topic Meningococcal Vaccine Aged Out No gus baylee eligible based on patient's age to complete this topic RSV under 20 months Aged Out No longe r eligible based on patient's age to complete this topic Rotavirus Vaccines Aged Out No longer eligible based on patient's age to complete this topic Procedures Procedure Name Priority Date/Time Associated Diagnosis Comments POCT GLYCATED HEMOGLOBIN, TOTAL Routine 04/24/2024 2:44 PM EST Type 1 diabetes mellitus with other specified complication (CMS/HCC) HEPATITIS C VIRAL RNA, QUANTITATIVE, REAL-TIME PCR Routine 12/09/2023 3:49 PM EDT Encounter for preventive health examination HIV 1/2 ANTIGEN/ANTIBODY, FOURTH GENERATION W/RFL Routine 12/09/2023 3:49 PM EDT Encounter for preventive health examination ALBUMIN, RANDOM URINE W/CREATININE Routine 12/09/2023 3:49 PM EDT Type 1 diabetes mellitus with other specified complication (CMS/HCC) LIPID PANEL WITH REFLEX TO DIRECT LDL Routine 12/09/2023 3:49 PM EDT Encounter for preventive health examination FECAL IMMUNOCHEMICAL Routine 07/21/2022 12:00 AM EST from Last 3 Months or Most Recently Relevant to Health Maintenance Results * POCT HGB A1C (04/24/2024 2:44 PM EST) Hemoglobin A1C 5.4 4.0 - 6.0 % QC Media Lot # [id number] Lot# Expiration Date [id number] Blood 04/24/2024 2:44 PM EST Siobhan Corral MD POINT OF CARE TEST EN TER/EDIT ORDERABLES Final Result * (ABNORMAL) Lipid Panel with Reflex to Direct LDL (12/09/2023 3:49 PM EDT) Triglycerides 106 <150 mg/dL [facility] Comment:Desirable Triglyceri de: less than 150 mg/dLBorderline High Triglyceride 150-199 mg/dLHigh Triglyceride: 200-499 mg/dLVery High Triglyceride: greater than or equal to 5OO mg/dL Cholesterol 170 <200 mg/dL [facility] Comment:Desirable Cholestero l: less than 200 mg/dLBorderline High Cholesterol: 200-239 mg/dLHigh Cholesterol: greater than 239 mg/dL LDL Cholesterol Calculated 100(H) <100 mg/dL [facility] Comment:Desirable LDL: less than 100 mg/dLNear Optimal/Above Optimal LDL: 110- 129 mg/dLBorderline High LDL: 130-159 mg/dLHigh LDL: 160-189 mg/dLVery High LDL: greater than or equal to 190 mg/dL HDL Cholesterol 49 >40 mg/dL [facility] Comment:Desirable HDL: great er than 40 mg/dL Note: This HDL assay may give artificially low results in patients with liver disease. Blood 12/09/2023 3:49 PM EDT 12/09/2023 5:02 PM EDT Siobhan Corral MD LAB BLOOD ORDERABLES Final Result Performing Organization Address [facility] Co de Phone Number [facility] [address] [place] [phone] * Hepatitis C Viral RNA, Quantitative, Real-Time PCR (12/09/2023 3:49 PM EDT) Hepatitis C Viral Load <15 NOT DETECTED NOT DETECTED IU/mL [facility] HCV Log PCR <1.18 NOT DETECTED NOT DETECTED Log IU/mL [facility] Comment:For additional infor mation, please refer [email or web address].[employer]/faq/UJX33r7(This link is being provided for informational/educational purposes only.)THIS TEST WAS PERFORMED AT:[facility] [place] [phone] GOMEZ MD Blood 12/09/2023 3:49 PM EDT 12/09/2023 5:02 PM EDT Siobhan Corral MD LAB BLOOD ORDERABLES Final Result Performing Organization Address [facility] de Phone Number [facility] [address] [place] [address] [phone] * Albumin, Random Urine W/Creatinine (12/09/2023 3:49 PM EDT) Creatinine, Urine 72.39 mg/dL [facility] Microalbumin Urine <5.0 mg/L [facility] Microalbum Creatinine Ratio Ur TNP <30 ug/mg cr [facility] Comment:Unable to calculate albumin/creatinine ratio due to lowmicroalbumin or creatinine result. Urine (Urine, Random) 12/09/2023 3:49 PM EDT 12/09/2023 5:09 PM EDT Siobhan Corral MD LAB URINE ORDERABLES Final Result Performing Organization Address City/[facility]/ZIP Co de Phone Number [facility] [address] [place] [phone] * HIV-1/2 Antigen and Antibodies, Fourth Generation, with Reflexes (12/09/2023 3:49 PM EDT) [facility] HIV AB/AG Nonreactive Nonreactive [facility] Comment:HIV-1 p24 Ag and/or HIV-1/HIV-2 Ab not detected.A test result that is nonreactive does not exclude thepossibility of exposure to or infection with HIV-1 and/orHIV-2. Nonreactive results in this assay for individualswith prior exposure to HIV-1 and/or HIV-2 may be due toantigen and antibody levels that are below the limit ofdetection of this assay.[employer] HIV Ag/Ab Combo assay result andsupplemental assay results should be interpreted inconjunction with the patient's clinical presentation,history and other laboratory results. If the results areinconsistent with clinical evidence, additional testing issuggested to confirm the result. Blood Venous blood specimen / Unknown 12/09/2023 3:49 PM EDT 12/09/2023 5:02 PM EDT Siobhan Corral MD LAB BLOOD ORDERABLES Final Result Performing Organization Address City/[facility]/ZIP Co de Phone Number [facility] [address] [place] [address] [phone] * Fecal immunochemical (07/21/2022 12:00 AM EST) Pathologist [facility] FIT1 POSITIVE NEGATIVE [facility] FIT DATE 1 07/20/22 [facility] FIT2 NEGATIVE NEGATIVE [facility] FIT DATE 2 07/21/22 [facility] 07/21/2022 07/21/2022 3:1 3 PM EST [facility] Exter nal Provider LAB BODY FLUIDS AND STOOLS ORDERABLES Final Result [facility] [address] [place] [phone] from Last 3 Months or Most Recently Relevant to Health Maintenance Insurance [employer] Care Teams Money Position Officer Relationship Specialty Start Date End Date Siobhan Gregory MD [address] [place] [phone] PCP - General Family Medicine 01/01/19 Paty Farmer Minor League Baseball PlayerMerchandise Manager 12/07/23
--- OUTSIDE RECORDS SUMMARY | 2024-07-30 15:08 | XMS_ITS | Encounter Summary ---
Author Organization [employer] Address [address] [facility] [address] [place] [address] Care Team Providers Care Inspection Machine Tender Name Role Phone Siobhan Gregory MD Primary Care Provide r Encounter Details Date Type Department Care Team (Late st Contact Info) Description 10/25/2022 Orders Only [facility] [address] [place] [phone] Chata Bear LPN Social History Tobacco Use Types Packs/Day [...] Description 08/01/2024 2:45 PM EST Office Visit [facility] [address] [place] [phone] Siobhan Gregory MD [address] [place] [phone] documented as of this encounter Visit Diagnoses Not on filedocumented in this encounter Care Teams Inspection Machine Tender Relationship Specialty Start Date End Date Siobhan Gregory MD [address] [place] [address] [phone] PCP - General Family Medicine 01/01/19 Paty Farmer Tongue TrimmerCoater Hand 12/07/23 documented as of this encounter
--- OUTSIDE RECORDS SUMMARY | 2024-07-30 15:08 | XMS_ITS | Encounter Summary ---
Author Organization [facility] Address [address] [facility] 7t [place] [address] Care Team Providers Care Food And Nutrition Teacher Name Role Phone Siobhan Gregory MD Primary Care Provide r Reason for Visit * Reason Comments Med Refill Encounter Details Date Type Department Care Team (Late st Contact Info) Description 09/08/2022 Refill [facility] [address] [place] [address] Chelsie Covarrubias ANP [address] [place] [address] Muscle spasm Social History Tobacco Use Types Packs/Day Years [...] Description 08/01/2024 2:45 PM EST Office Visit [facility] [address] [place] [address] Siobhan Gregory MD [address] [place] [address] [phone] documented as of this encounter Visit Diagnoses Diagnosis Muscle spasm Spasm of muscle documented in this encounter Care Teams Food And Nutrition Teacher Relationship Specialty Start Date End Date Siobhan Gregory MD [address] [place] [phone] PCP - General Family Medicine 01/01/19 Paty Farmer Associate Brand ManagerDumper Bailer Operator 12/07/23 documented as of this encounter
--- OUTSIDE RECORDS SUMMARY | 2024-07-30 15:08 | XMS_ITS | Encounter Summary ---
Author Organization [employer] Address [address] [facility] 7t [place] [address] Care Team Providers Care Scientific Manager Name Role Phone Siobhan Gregory MD Primary Care Provide r Reason for Visit * Reason Onset Date Comments Nurse Triage 07/02/2024 Encounter Details Date Type Department Care Team ([facility] st Contact Info) Description 07/02/2024 Telephone [facility] [address] [place], [place] [phone] Siobhan Gregory MD [address] [place], [place] [phone] Nurse Triage Social History Tobacco Use Types Packs/Day Years [...] encounter Miscellaneous Notes * Telephone Encounter - Leandra Capone LPN - 07/02/2024 10:28 AM EST Triage call returned with S # [id number] Caden. Patient reports concern with area on the right index finger near to the nailbed. Patient describinga dime sized raised area with either blood or liquid in it. Area present for approx one month + andpatient thought it would resolve but now is getting larger and is tender to touch. Skin intact not black. No spreading redness. Patient is diabetic. Disposition reviewed and patient in agreement with plan. ASK/Susan DO tomorrow at 1145am. Reviewed with patient home care recommendations and reasons to call back. Pt verbalized understanding and agrees. Protocol Used: Skin Lesion - Moles or Growths (Adult) Protocol-Based Disposition: See in Office or Video Visit Today or Tomorrow Video visit not offered Positive Triage Questions: * Caller can't describe it clearly * Skin growth or mole and changes color or has more than one color * All higher-acuity triage questions were negative * Telephone Encounter - Ke Mcintyre - 07/02/2024 10:21 AM EST Symptom: Finger Pain - Not From Injury Outcome: Schedule an urgent appointment (within 4 hours) or talk to a nurse or provider soon Reason: Swelling Please contact pt at [phone]. (Honduran Speaker) documented in this encounter Plan of Treatment Upcoming Encounters Date Type Department Care Team (Late st Contact Info) Description 08/01/2024 2:45 PM EST Office Visit [facility] [address] [place] [address] Siobhan Gregory MD [address] [place] [address] documented as of this encounter Visit Diagnoses Not on filedocumented in this encounter Additional Health Concerns Assessment Noted Time PHQ-9 Depression Total Score: 18 024 2:19 PM EDT documented as of this encounter Care Teams Scientific Manager Relationship Specialty Start Date End Date Siobhan Gregory MD [address] [place] [address] [phone] PCP - General Family Medicine 01/01/19 Paty Farmer Naval Aircrewman MechanicalPrint Traffic Manager 12/07/23 documented as of this encounter
--- OUTSIDE RECORDS SUMMARY | 2024-07-30 15:08 | XMS_ITS | Encounter Summary ---
Author Organization [employer] Address [address] [facility] 7t [place] [address] Care Team Providers Care Molding Supervisor Name Role Phone Siobhan Gregory MD Primary Care Provide r Reason for Visit * Reason Comments Pre-visit Planning SDOH screening negat kristina and tobacco screening negative Encounter Details Date Type Department Care Team ([facility] st Contact Info) Description 07/18/2024 Patient Outreach [facility] [address] [place] [address] Siobhan Gregory MD 230 [place], [place] [phone] Pre-visit Planning (SDOH screening negative and tobacco screening negative) Social History Tobacco Use Types Packs/Day Years [...] as of this encounter Progress Notes * Tiffanie Jessie - 07/18/2024 10:08 AM EST CC Tiffanie placed successful outbound call to patient for pre-visit planning. Patient name and confirmed. Patient confirms appt date and time, and has transportation. Biggest concern for appointment at this time is index fingercontinues to be painful and with inflamation Patient advised to bringto appointment a photo id and insurance card. Appropriate screenings completed in anticipation of appointment. documented in this encounter Plan of Treatment Upcoming Encounters Date Type Department Care Team (Late st Contact Info) Description 08/01/2024 2:45 PM EST Office Visit [facility] [address] [place] [address] Siobhan Gregory MD [address] [place] [address] documented as of this encounter Visit Diagnoses Not on filedocumented in this encounter Additional Health Concerns Assessment Noted Time PHQ-9 Depression Total Score: 18 024 2:19 PM EDT documented as of this encounter Care Teams Molding Supervisor Relationship Specialty Start Date End Date Sibohan Gregory MD [address] [place] [phone] PCP - General Family Medicine 01/01/19 Paty Farmer Casing CleanerWelder Journeyman 12/07/23 documented as of this encounter
--- OUTSIDE RECORDS SUMMARY | 2024-07-30 15:08 | XMS_ITS | Encounter Summary ---
Author Organization [employer] Address [address] [facility] 7t [place] [address] Care Team Providers Care Diabetes Clinical Manager Name Role Phone Siobhan Gregory MD Primary Care Provide r Reason for Referral * Consultation (Urgent) - Authorized Specialty Diagnoses / Procedures Referred By Rosalinda bunch Referred To Contact Family Medicine Diagnoses Skin tag Mulu Garrett DO [address] [place] [address] Phone: tel: fax: Referral ID Status Reason Start Date Expiration Date Visits Requested Visits Authorized [id number] Authorized Specialty Services Required 07/03/2024 07/03/2025 1 1 * Consultation (Urgent) - Canceled Specialty Diagnoses / Procedures Referred By Rosalinda bunch Referred To Contact General Surgery Diagnoses Epidermal cyst Mulu Garrett DO [address] [place] [address] Phone: tel: fax: Referral ID Status Reason Start Date Expiration Date Visits Requested Visits Authorized [id number] Canceled Specialty Services Required 07/03/2024 07/03/2025 1 1 Reason for Visit * Reason Comments Finger Injury Encounter Details Date Type Department Care Team (Late st Contact Info) Description 07/03/2024 11:45 AM EST Office Visit [facility] 230 [place] [address] Mulu Garrett DO [address] [place], [place] Epidermal cyst (Primary Dx); Skin tag Social History Tobacco Use Types Packs/Day Years [...] AM EDT documented as of this encounter Last Filed Vital Signs Vital Sign Reading Time Taken Comments Blood Pressure 145/83 07/03/2024 11:56 AM EST Pulse 115 07/03/2024 11:56 AM EST Temperature 36.4 ??C (97.5 ??F) 07/03/2024 11:[address] Respiratory Rate 16 07/03/2024 11:56 AM EST Oxygen Saturation - - Inhaled Oxygen Concentration - - Weight 74.2 kg (163 lb 8 oz) 07/03/2024 11:56 AM EST Height 149.9 cm (4' 11 ) 07/03/2024 11:56 AM EST Body Mass Index 33.02 07/03/2024 11:56 AM EST documented in this encounter Progress Notes * Mulu Tami, DO - 07/03/2024 11:45 AM EST SUBJECTIVE Shilo Tran is a 64 y.o. male who presents for Sick Visit. He c/o fluid-filled blister on his R-index finger x 2 mos, tender to the touch and getting larger in-size. He says it is bothersome. He says he pinched his finger in the door, which is when the sx began. He says he has tried to dipti it with a needle and the discharge was watery. He denies any pus or malodorous discharge. He is concerned that it will continue to grow. He also c/o skin tag that bleeds every time he shaves and he would like to have it removed. Review of Systems Constitutional: Negative for activity change, appetite change, fever and unexpected weight change. Respiratory: Negative for cough and chest tightness. Cardiovascular: Negative for chest pain and palpitations. Gastrointestinal: Negative for abdominal pain, diarrhea, nausea and vomiting. Neurological: Negative for dizziness, weakness and headaches. Patient Active Problem List Diagnosis Type 1 diabetes mellitus (CMS/HCC) Seizure disorder (CMS/HCC) Pure hypercholesterolemia Multiple joint pain Mild epistaxis Hyperlipidemia Gastroesophageal reflux disease Dry eyes Mood disorder (CMS/HCC) Depressive disorder Chronic thoracic back pain Chronic back pain Chronic left shoulder pain Primary hypertension Anemia Acquired hypothyroidism Skin tag Encounter for preventive health examination Acute right-sided thoracic back pain Sinus tachycardia Decreased hearing of right ear Excessive cerumen in ear canal Acute pain of right shoulder Colon cancer screening Chronic pain in right shoulder Right wrist pain Bilateral foot pain Pruritus Chronic right-sided thoracic back pain Allergies Allergen Reactions Joni Inhibitors Cough Simvastatin Other reaction(s): increased LFTs OBJECTIVE Vitals: 07/03/24 1156 BP: (!) 145/83 BP Location: Left arm Patient Position: Sitting BP Cuff Size: Large adult Pulse: (!) 115 Resp: 16 Temp: 97.5 ??F (36.4 ??C) TempSrc: Temporal Weight: 163 lb 8 oz (74.2 kg) Height: 4' 11 (1.499 m) Physical Exam Constitutional: General: He is not in acute distress. Appearance: Normal appearance. Cardiovascular: Rate and Rhythm: Normal rate and regular rhythm. Heart sounds: Normal heart sounds. No murmur heard. Pulmonary: Effort: Pulmonary effort is normal. Breath sounds: Normal breath sounds. No wheezing or rhonchi. Neurological: General: No focal deficit present. Mental Status: He is alert. Psychiatric: Mood and Affect: Mood normal. Assessment/Plan Diagnoses and all orders for this visit: Epidermal cyst Bothersome cyst, increasing in size since traumatic injury, no sign of infection -provided reassurance -referred to GS for removal -advised rtc if pain, redness, or purulent discharge, he agrees with plans Skin tag Recurrent sx, desiring removal -referred to [facility] derm for eval --Follow-up with PCP as scheduled or sooner prn-- Current Outpatient Medications: Acetaminophen Extra Strength 500 MG tablet, TAKE 2 TABLETS BY MOUTH EVERY 8 HOURS NEEDED (TAKE 2TABLETS EVERY 8 HOURS FOR PAIN ONLY), Disp: 30 tablet, Rfl: 0 amLODIPine (Norvasc) 5 MG tablet, Take 1 tablet (5 mg) by mouth Once per day., Disp: 30 tablet, Rfl: 11 Aspirin Low Dose 81 MG EC tablet, TAKE 1 TABLET (81 MG) BY MOUTH ONCE PER DAY., Disp: 90 tablet, Rfl: 1 atorvastatin (Lipitor) 40 MG tablet, Take 1 tablet (40 mg) by mouth at bedtime., Disp: 90 tablet, Rfl: 1 Blood Pressure Monitoring (Blood Pressure Cuff) misc, 1 each Once daily., Disp: 1 each, Rfl: 0 cyclobenzaprine (Flexeril) 10 MG tablet, Take 1 tablet (10 mg) by mouth if needed in the morning, at noon, and at bedtime for muscle spasms (take one tablet only if pain)., Disp: 30 tablet, Rfl: 1 famotidine (Pepcid) 40 MG tablet, TAKE 1 TABLET BY MOUTH EVERYDAY AT BEDTIME, Disp: 90 tablet, Rfl:1 glucose blood (FreeStyle InsuLinx Test) test strip, Check by fingerstick route up to 7 times a day., Disp: 200 each, Rfl: 11 hydrALAZINE (Apresoline) 25 MG tablet, Take one tablet every 8 hours as needed for itchiness, Disp:30 tablet, Rfl: 0 insulin glargine (Lantus) 100 UNIT/ML injection, 35 U AM and 10 U PM inject subcutaneous, Disp: 20 mL, Rfl: 3 Insulin Lispro (HumaLOG) 100 UNIT/ML solution, Inject 0.1 mL (10 Units) as directed before breakfast AND 0.05 mL (5 Units) before lunch AND 0.05 mL (5 Units) before evening meal., Disp: 6 mL, Rfl: 2 Insulin Lispro 100 UNIT/ML solution, INJECT 5 UNITS BEFORE MEALS IF SUGAR 150- 250. INJECT 8 UNITS BEFORE MEALS IF SUGAR MORE THAN 250., Disp: 30 mL, Rfl: 5 insulin syringe-needle U-100 (BD Insulin Syringe U/F) 31G X 5/16 0.5 mL misc, INJECT 1 BY SUBDERMAL ROUTE 4 TIMES EVERY DAY FOR USE WITH HUMALOG, Disp: 100 each, Rfl: 3 levothyroxine (Synthroid, Levoxyl) 112 MCG tablet, TAKE 1 TABLET BY MOUTH EVERY DAY BEFORE BREAKFAST, Disp: 90 tablet, Rfl: 1 losartan (Cozaar) 100 MG tablet, TAKE 1 TABLET BY MOUTH EVERY DAY IN THE MORNING, Disp: 90 tablet, Rfl: 1 Scribe Attestation: Michael Marsh, am serving as a scribe to document services personally performed by Mulu Chavez, based on the patient's response to questions by provider and provider's statements to me. 07/03/24 12:56 PM Physicians Attestation: Mulu Marsh DO, have reviewed the information by the scribe, Michael Kendrick, for accuracy and agree with its content. documented in this encounter Plan of Treatment Upcoming Encounters Date Type Department Care Team (Late st Contact Info) Description 08/01/2024 2:45 PM EST Office Visit [facility]INE [address] [place] [phone] Siobhan Gregory MD [address] [place] [address] Scheduled Referrals Name Type Priority Associated Diagnoses Orde r Schedule Referral to General Surgery Outpatient Referral Urgent Epidermal cyst Expected: 07/03/2024 (Approximate), Expires: 07/03/2025 Referral to [facility] Derm Skin Adult Outpatient Referral Urgent Skin tag Expected: 07/03/2024 (Approximate), Expires: 07/03/2025 documented as of this encounter Visit Diagnoses Diagnosis Epidermal cyst- Primary Sebaceous cyst Skin tag Unspecified hypertrophic and atrophic condition of skin documented in this encounter Additional Health Concerns Assessment Noted Time PHQ-9 Depression Total Score: 18 024 2:19 PM EDT documented as of this encounter Care Teams Diabetes Clinical Manager Relationship Specialty Start Date End Date Siobhan Gregory MD [address] [place] [phone] PCP - General Family Medicine 01/01/19 Paty Farmer Alarm Mechanism AdjusterGuest Service Representative 12/07/23 documented as of this encounter
--- OUTSIDE RECORDS SUMMARY | 2024-07-30 15:08 | XMS_ITS | Encounter Summary ---
Author Organization [employer] Address [address] [facility] 7t [place] [address] Care Team Providers Care Patient Services Specialist Name Role Phone Siobhan Gregory MD Primary Care Provide r Reason for Visit * Reason Comments Med Refill Encounter Details Date Type Department Care Team (Late st Contact Info) Description 06/06/2023 Refill [facility]INE 230 [place], [place] [phone] Siobhan Gregory MD 230 [place], [place] [phone] Social History Tobacco Use Types Packs/Day Years [...] Description 08/01/2024 2:45 PM EST Office Visit [facility] [address] [place] [address] Siobhan Gregory MD [address] [place] [address] documented as of this encounter Visit Diagnoses Not on filedocumented in this encounter Additional Health Concerns Assessment Noted Time PHQ-9 Depression Total Score: 20 023 10:41 AM EDT documented as of this encounter Care Teams Patient Services Specialist Relationship Specialty Start Date End Date Siobhan Gregory MD [address] [place] [address] [phone] PCP - General Family Medicine 01/01/19 Paty Farmer Uptwister TenderHealth Sciences Dean 12/07/23 documented as of this encounter
== END 2024-07-30 13:59 | disposition home or self-care (01) ==
PROVIDERS: PCP Internal Medicine; Visit Provider Surgery
DX: L98.8 Other specified disorders of the skin and subcutaneous tissue (principal); M67.441 Ganglion, right hand
CPT/HCPCS: 10160; 11102; 99204

== ENCOUNTER 2024-07-30 13:13 | Outpatient (REF) | payer MEDICAID, SELFPAY ==
--- OUTSIDE RECORDS SUMMARY | 2024-07-30 16:15 | XMS_ITS | Encounter Summary ---
Author Organization [employer] Address [address] [facility] 7t [place] [address] Care Team Providers Care Varnish Thinner Name Role Phone Siobhan Gregory MD Primary Care Provide r Reason for Visit * Reason Comments Med Refill Encounter Details Date Type Department Care Team ([facility] st Contact Info) Description 07/17/2024 Refill [facility] 230 [place], [place] [phone] Siobhan Gregory MD 230 [place], [place] [phone] Type 1 diabetes mellitus with other specified [...] Description 08/01/2024 2:45 PM EST Office Visit [facility] [address] [place] [address] Siobhan Gregory MD [address] [place] [address] documented as of this encounter Visit Diagnoses Diagnosis Type 1 diabetes mellitus with other specified complication (CMS/HCC) documented in this encounter Additional Health Concerns Assessment Noted Time PHQ-9 Depression Total Score: 18 024 2:19 PM EDT documented as of this encounter Care Teams Varnish Thinner Relationship Specialty Start Date End Date Siobhan Gregory MD [address] [place] [address] PCP - General Family Medicine 01/01/19 Paty Farmer Paddock JudgeDistrict Sales Coordinator 12/07/23 documented as of this encounter
--- OUTSIDE RECORDS SUMMARY | 2024-07-30 16:15 | XMS_ITS | Encounter Summary ---
Author Organization [employer] Address [address] [facility] 7t [place] [address] Care Team Providers Care Assembler Molded Frames Name Role Phone Siobhan Gregory MD Primary Care Provide r Reason for Visit * Reason Comments Med Refill Encounter Details Date Type Department Care Team (Late st Contact Info) Description 06/07/2023 Refill [facility] MEDICINE [address] [place], [place] [phone] Christy Long FNP [address] [place], [place] [phone] Social History Tobacco Use Types Packs/Day Years [...] 2:45 PM EST Office Visit [facility] MED[facility]INE [address] [place] [address] Siobhan Gregory MD [address] [place] [address] documented as of this encounter Visit Diagnoses Not on filedocumented in this encounter Additional Health Concerns Assessment Noted Time PHQ-9 Depression Total Score: 20 023 10:41 AM EDT documented as of this encounter Care Teams Assembler Molded Frames Relationship Specialty Start Date End Date Siobhan Gregory MD [address] [place] [address] PCP - General Family Medicine 01/01/19 Paty Farmer Cane Flume WatchmanLast Sawyer 12/07/23 documented as of this encounter
--- OUTSIDE RECORDS SUMMARY | 2024-07-30 16:15 | XMS_ITS | Encounter Summary ---
Author Organization [employer] Address [address] [facility] 7t [place] [address] Care Team Providers Care Grades 1 Thru 6 Visiting Teacher Name Role Phone Siobhan Gregory MD Primary Care Provide r Reason for Visit * Reason Comments Pre-visit Planning SDOH screening negat kristina and tobacco screening negative Encounter Details Date Type Department Care Team ([facility] st Contact Info) Description 07/18/2024 Patient Outreach [facility]ICINE [address] [place] [address] Siobhan Gregory MD 230 [place], [place] [phone] Pre-visit Planning (SDOH screening negative and tobacco [...] Description 08/01/2024 2:45 PM EST Office Visit [facility] MEDICINE [address] [place] [address] Siobhan Gregory MD [address] [place] [address] documented as of this encounter Visit Diagnoses Not on filedocumented in this encounter Additional Health Concerns Assessment Noted Time PHQ-9 Depression Total Score: 18 024 2:19 PM EDT documented as of this encounter Care Teams Grades 1 Thru 6 Visiting Teacher Relationship Specialty Start Date End Date Siobhan Gregory MD [address] [place] [phone] PCP - General Family Medicine 01/01/19 Paty Farmer Drill HandPhysician Surgeon 12/07/23 documented as of this encounter
--- OUTSIDE RECORDS SUMMARY | 2024-07-30 16:15 | XMS_ITS | Encounter Summary ---
Author Organization [employer] Address [address] [facility] 7t [place] [address] Care Team Providers Care National Sales Associate Name Role Phone Siobhan Gregory MD Primary Care Provide r Reason for Visit * Reason Comments Med Refill Encounter Details Date Type Department Care Team (Late st Contact Info) Description 06/06/2023 Refill [facility] 230 [place], [place] [phone] Siobhan Gregory MD [address] [place], [place] [phone] Social History Tobacco Use Types Packs/Day Years [...] Description 08/01/2024 2:45 PM EST Office Visit [facility] 230 [place] [address] Siobhan Gregory MD [address] [place] [address] documented as of this encounter Visit Diagnoses Not on filedocumented in this encounter Additional Health Concerns Assessment Noted Time PHQ-9 Depression Total Score: 20 023 10:41 AM EDT documented as of this encounter Care Teams National Sales Associate Relationship Specialty Start Date End Date Siobhan Gregory MD [address] [place] [address] [phone] PCP - General Family Medicine 01/01/19 Paty Farmer Superintendent TransportationScientific Illustrator 12/07/23 documented as of this encounter
--- OUTSIDE RECORDS SUMMARY | 2024-07-30 16:15 | XMS_ITS | Encounter Summary ---
Author Organization [employer] Address [address] [facility] 7t [place] [address] Care Team Providers Care Ironer Or Presser Name Role Phone Siobhan Gregory MD Primary Care Provide r Encounter Details Date Type Department Care Team ([facility] st Contact Info) Description 06/07/2023 Orders Only [facility] [address] [place] [address] Mulu Lewis LPN Social History Tobacco Use [...] Description 08/01/2024 2:45 PM EST Office Visit [facility] 230 [place] [address] Siobhan Gregory MD [address] [place] [address] documented as of this encounter Visit Diagnoses Not on filedocumented in this encounter Additional Health Concerns Assessment Noted Time PHQ-9 Depression Total Score: 20 023 10:41 AM EDT documented as of this encounter Care Teams Ironer Or Presser Relationship Specialty Start Date End Date Siobhan Gregory MD [address] [place] [phone] PCP - General Family Medicine 01/01/19 Paty Farmer Mill TenderPatient Attendant 12/07/23 documented as of this encounter
--- OUTSIDE RECORDS SUMMARY | 2024-07-30 16:16 | XMS_ITS | Encounter Summary ---
Author Organization [employer] Address 75 [facility] 7t [place] [address] Care Team Providers Care Sort Worker Name Role Phone Siobhan Gregory MD Primary Care Provide r Encounter Details Date Type Department Care Team ([facility] st Contact Info) Description 07/18/2024 Telephone [facility] MEDICINE [address] [place], [place] [phone] Kareen Rodriguez RN [address] [place], [place] [phone] Social History Tobacco Use Types Packs/Day Years [...] note were not included. Triage call with [facility] [place] [phone]. Pt was called x2 regarding Pt portal message below. Funeral Home Associate left voice message to call [facility] triage line at [phone]. Tiffanie Vasquez Medicine Red Team Nurses; Tad [...] to be seen with a surgeon at [facility] for this patient stated I am still waiting for the referral I haven't heard anything about it since my last visit there and this is getting painfully worse patient was informed by senior medical writer message will be sent to team and triage. documented in this encounter Plan of Treatment Upcoming Encounters Date Type Department Care Team (Late st Contact Info) Description 08/01/2024 2:45 PM EST Office Visit [facility] MEDICINE [address] [place], [place] [phone] Siobhan Gregory MD [address] [place], [place] [phone] documented as of this encounter Visit Diagnoses Not on filedocumented in this encounter Additional Health Concerns Assessment Noted Time PHQ-9 Depression Total Score: 18 01/22/ 024 2:19 PM EDT documented as of this encounter Care Teams Sort Worker Relationship Specialty Start Date End Date Siobhan Gregory MD [address] [place] [address] PCP - General Family Medicine 01/01/19 Paty Farmer Field Administrative AssistantRim Roller Setter 12/07/23 documented as of this encounter
--- OUTSIDE RECORDS SUMMARY | 2024-07-30 16:16 | XMS_ITS | Encounter Summary ---
Author Organization [employer] Address 75 [facility] 7t [place] [address] Care Team Providers Care Primer Waterproofing Machine Adjuster Name Role Phone Siobhan Gregory MD Primary Care Provide r Reason for Referral * Consultation (STAT) - Authorized Specialty Diagnoses / Procedures Referred By Rosalinda t Referred To Contact General Surgery Diagnoses Epidermal cyst Mulu Garrett DO [address] [place] [address] Phone: tel: fax: [facility] General Surgeons [address] [place] [address] [address] [place], [place] Phone: tel: fax: Referral ID Status Reason Start Date Expiration Date Visits Requested Visits Authorized [id number] Authorized Specialty Services Required 07/19/2024 07/19/2025 12 12 Encounter Details Date Type Department Care Team (Late st Contact Info) Description 07/18/2024 Orders Only [facility] MEDICINE [address] [place] [address] Mulu Garrett DO [address] [place] [address] Epidermal cyst (Primary Dx) Social History Tobacco [...] Description 08/01/2024 2:45 PM EST Office Visit [facility] MEDICINE [address] [place] [address] Siobhan Gregory MD [address] [place], [place] [phone] Scheduled Referrals Name Type Priority Associated Diagnoses [...] documented as of this encounter Care Teams Primer Waterproofing Machine Adjuster Relationship Specialty Start Date End Date Siobhan Gregory MD [address] [place] [address] PCP - General Family Medicine 01/01/19 Paty Farmer SwatcherPost Hole Digging Machine Operator 12/07/23 documented as of this encounter
--- OUTSIDE RECORDS SUMMARY | 2024-07-30 16:16 | XMS_ITS | Encounter Summary ---
Author Organization [employer] [facility] Address 75 [facility] 7t [place] [address] Care Team Providers Care Laborer Prestressed Concrete Name Role Phone Siobhan Gregory MD Primary Care Provide r Reason for Visit * Reason Comments Med Refill Encounter Details Date Type Department Care Team (Late st Contact Info) Description 07/27/2022 Refill [facility] [address] [place] [address] [phone] Michelle Laboy MD [address] [place] [phone] Other specified hypothyroidism Social History Tobacco Use [...] Description 08/01/2024 2:45 PM EST Office Visit [facility] MEDICINE [address] [place] [phone] Siobhan Gregory MD 230 [place] [address] documented as of this encounter Visit Diagnoses Diagnosis Other specified hypothyroidism documented in this encounter Care Teams Laborer Prestressed Concrete Relationship Specialty Start Date End Date Siobhan Gregory MD [address] [place] [address] [phone] PCP - General Family Medicine 01/01/19 Paty Farmer Brass SorterAssembler Fitter 12/07/23 documented as of this encounter
--- OUTSIDE RECORDS SUMMARY | 2024-07-30 16:16 | XMS_ITS | Encounter Summary ---
Author Organization [employer] Address 75 [facility] 7t [place] [address] Care Team Providers Care Road Roller Operator Name Role Phone Siobhan Gregory MD Primary Care Provide r Reason for Visit * Reason Onset Date Comments Referral 07/18/2024 Encounter Details Date Type Department Care Team ([facility] st Contact Info) Description 07/18/2024 Telephone [facility] MEDICINE [address] [place], [place] [phone] Na Encarnacion RN [address] [place], [place] [phone] Referral Social History Tobacco Use Types Packs/Day [...] Please see below. Patient was referred to [facility] on 07/03/24 however the referral was [...] to be seen with a surgeon [place] [facility] [place] patient stated I am still waiting for the referral I haven't heard anything about it since my last visit there and this is getting painfully worse patient was informed by principal technical writer message will be sent to team and triage. documented in this encounter Plan of Treatment Upcoming Encounters Date Type Department Care Team (Late st Contact Info) Description 08/01/2024 2:45 PM EST Office Visit [facility] MEDICINE [address] [place] [address] Siobhan Gregory MD [address] [place] [address] documented as of this encounter Visit Diagnoses Not on filedocumented in this encounter Additional Health Concerns Assessment Noted Time PHQ-9 Depression Total Score: 18 01/22/2 024 2:19 PM EDT documented as of this encounter Care Teams Road Roller Operator Relationship Specialty Start Date End Date Siobhan Gregory MD [address] [place] [address] PCP - General Family Medicine 01/01/19 Paty Farmer Steam Shovel OilerAir Drill Operator 12/07/23 documented as of this encounter
--- OUTSIDE RECORDS SUMMARY | 2024-07-30 16:16 | XMS_ITS | Clinical Summary ---
Author Organization [employer] Address 75 [facility] 7t [place] [address] Care Team Providers Care Farm Assistant Name Role Phone Siobhan Gregory MD [...] for him to request evaluation for more HEAD OF ICT hours Depressive disorder 11/22/2011 Primary hypertension 11/22/2011 [...] Department Care Team Description 07/18/2024 Orders Only [facility] MEDICINE [address] [place] [address] Mulu Garrett DO Epidermal cyst (Primary Dx) 07/18/2024 Telephone [facility] MEDICINE [address] [place] [address] Na Encarnacion, mobile home laborer 07/18/2024 Telephone [facility] MEDICINE [address] [place] [address] Kareen Rodriguez, LINDA 07/18/2024 Patient Outreach [facility] [address] [place] [address] Siobhan Gregory MD Pre-visit Planning (SDOH screening negative and tobacco screening negative) 07/17/2024 Refill [facility] [address] [place] [phone] iSobhan Gregory MD Type 1 diabetes mellitus with other specified complication (CMS/HCC) 07/03/2024 11:45 AM EST Office Visit [facility] MEDICINE [address] [place] [address] Mulu Garrett DO Epidermal cyst (Primary Dx); Skin tag 07/03/2024 Travel 07/02/2024 Telephone [facility] MEDICINE [address] [place] [address] [phone] Siobhan Gregory MD Nurse Triage 06/03/2024 Refill [facility] [address] [place] [address] [phone] Siobhan Gregory MD Acute pain of right shoulder 05/23/2024 Refill [facility] [address] [place] [address] [phone] Siobhan Gregory MD Other specified hypothyroidism from [...] Description 08/01/2024 2:45 PM EST Office Visit [facility] MEDICINE [address] [place] [address] Siobhan Gregory MD [address] [place] [address] Health Maintenance Due Date Last Done Comments [...] 3:49 PM EDT) Triglycerides 106 <150 mg/dL [facility] Comment:Desirable Triglyceri de: less than 150 mg/dLBorderline High Triglyceride 150-199 mg/dLHigh Triglyceride: 200-499 mg/dLVery High Triglyceride: greater than or equal to 5OO mg/dL Cholesterol 170 <200 mg/dL [facility] Comment:Desirable Cholestero l: less than 200 mg/dLBorderline High Cholesterol: 200-239 mg/dLHigh Cholesterol: greater than 239 mg/dL LDL Cholesterol Calculated 100(H) <100 mg/dL [facility] Comment:Desirable LDL: less than 100 mg/dLNear Optimal/Above Optimal LDL: 110- 129 mg/dLBorderline High LDL: 130-159 mg/dLHigh LDL: 160-189 mg/dLVery High LDL: greater than or equal to 190 mg/dL HDL Cholesterol 49 >40 mg/dL [facility] Comment:Desirable HDL: great er than 40 mg/dL Note: This HDL assay may give artificially low results in patients with liver disease. Blood 12/09/2023 3:49 PM EDT 12/09/2023 5:02 PM EDT Siobhan Corral MD LAB BLOOD ORDERABLES Final Result Performing Organization Address [facility] [place]/[facility] Co de Phone Number [facility] [address] [place] [phone] * Hepatitis C Viral RNA, Quantitative, Real-Time PCR (12/09/2023 3:49 PM EDT) Hepatitis C Viral Load <15 NOT DETECTED NOT DETECTED IU/mL [facility] HCV Log PCR <1.18 NOT DETECTED NOT DETECTED Log IU/mL [facility] Comment:For additional infor mation, please refer [email or web address].[email or web address]/faq/[email or web address](This link is being provided for informational/educational purposes only.)THIS TEST WAS PERFORMED AT:[facility] [place] [phone] GOMEZ MD Blood 12/09/2023 3:49 PM EDT 12/09/2023 5:02 PM EDT Siobhan Corral MD LAB BLOOD ORDERABLES Final Result Performing Organization Address [facility] de Phone Number [facility] [address] [place] [phone] * Albumin, Random Urine W/Creatinine (12/09/2023 3:49 PM EDT) Creatinine, Urine 72.39 mg/dL [facility] Microalbumin Urine <5.0 mg/L [facility] Microalbum Creatinine Ratio Ur TNP <30 ug/mg cr [facility] Comment:Unable to calculate albumin/creatinine ratio due to lowmicroalbumin or creatinine result. Urine (Urine, Random) 12/09/2023 3:49 PM EDT 12/09/2023 5:09 PM EDT Siobhan Corral MD LAB URINE ORDERABLES Final Result Performing Organization Address City/[facility]/ZIP Co de Phone Number [facility] [address] [place] [phone] * HIV-1/2 Antigen and Antibodies, Fourth Generation, with Reflexes (12/09/2023 3:49 PM EDT) [facility] HIV AB/AG Nonreactive Nonreactive [facility] Comment:HIV-1 p24 Ag and/or HIV-1/HIV-2 Ab not detected.A test result that is nonreactive does not exclude thepossibility of exposure to or infection with HIV-1 and/orHIV-2. Nonreactive results in this assay for individualswith prior exposure to HIV-1 and/or HIV-2 may be due toantigen and antibody levels that are below the limit ofdetection of this assay.The Lumific HIV Ag/Ab Combo assay result andsupplemental assay results should be interpreted inconjunction with the patient's clinical presentation,history and other laboratory results. If the results areinconsistent with clinical evidence, additional testing issuggested to confirm the result. Blood Venous blood specimen / Unknown 12/09/2023 3:49 PM EDT 12/09/2023 5:02 PM EDT Siobhan Corral MD LAB BLOOD ORDERABLES Final Result Performing Organization Address City/[facility]/ZIP Co de Phone Number [facility] [address] [place] [phone] [phone] * Fecal immunochemical (07/21/2022 12:00 AM EST) Pathologist [facility] FIT1 POSITIVE NEGATIVE [facility] FIT DATE 1 07/20/22 [facility] FIT2 NEGATIVE NEGATIVE [facility] FIT DATE 2 07/21/22 [facility] 07/21/2022 07/21/2022 3:1 3 PM EST [facility] Exter nal Provider LAB BODY FLUIDS AND STOOLS ORDERABLES Final Result [facility] [address] [place] [phone] [phone] from Last 3 Months or Most Recently Relevant to Health Maintenance Insurance [employer] C3 Care Teams Farm Assistant Relationship Specialty Start Date End Date Siobhan Gregory MD [address] [place] [phone] PCP - General Family Medicine 01/01/19 Paty Farmer Insurance Loss Control SurveyorSocial Media Content Specialist 12/07/23
--- OUTSIDE RECORDS SUMMARY | 2024-07-30 16:16 | XMS_ITS | Encounter Summary ---
Author Organization [employer] Address 75 [facility] 7t [place] [address] Care Team Providers Care Machine Leather Trimmer Name Role Phone Siobhan Gregory MD Primary Care Provide r Reason for Visit * Reason Onset Date Comments Nurse Triage 07/02/2024 Encounter Details Date Type Department Care Team ([facility] st Contact Info) Description 07/02/2024 Telephone [facility] MEDICINE [address] [place], [place] [phone] Siobhan Gregory MD [address] [place], [place] [phone] Nurse Triage Social History Tobacco Use Types [...] EST Triage call returned with S # [phone] Caden. Patient reports concern with area on [...] soon Reason: Swelling Please contact pt at [phone]. (Mexican Speaker) documented in this encounter Plan of Treatment Upcoming Encounters Date Type Department Care Team (Late st Contact Info) Description 08/01/2024 2:45 PM EST Office Visit [facility] MEDICINE [address] [place] [address] Siobhan Gregory MD [address] [place] [address] documented as of this encounter Visit Diagnoses Not on filedocumented in this encounter Additional Health Concerns Assessment Noted Time PHQ-9 Depression Total Score: 18 024 2:19 PM EDT documented as of this encounter Care Teams Machine Leather Trimmer Relationship Specialty Start Date End Date Siobhan Gregory MD [address] [place] [address] [phone] PCP - General Family Medicine 01/01/19 Paty Farmer Tent AssemblerSocial Work Program Coordinator 12/07/23 documented as of this encounter
--- OUTSIDE RECORDS SUMMARY | 2024-07-30 16:16 | XMS_ITS | Encounter Summary ---
Author Organization [employer] [facility] Address 75 [facility] 7t [place] [address] Care Team Providers Care Adult Parole Officer Name Role Phone Siobhan Gregory MD Primary Care Provide r Reason for Visit * Reason Comments Med Refill Encounter Details Date Type Department Care Team (Late st Contact Info) Description 09/08/2022 Refill [facility] MEDICINE [address] [place] [place] [phone] Chelsie Covarrubias ANP [address] [place] [address] Muscle spasm Social History Tobacco Use Types [...] Description 08/01/2024 2:45 PM EST Office Visit [facility] MEDICINE [address] [place] [place] [phone] Siobhan Gregory MD [address] [place] [address] [phone] documented as of this encounter Visit Diagnoses Diagnosis Muscle spasm Spasm of muscle documented in this encounter Care Teams Adult Parole Officer Relationship Specialty Start Date End Date Siobhan Gregory MD [address] [place] [phone] PCP - General Family Medicine 01/01/19 Paty Farmer Science Center Display BuilderOcc Med Physician 12/07/23 documented as of this encounter
--- OUTSIDE RECORDS SUMMARY | 2024-07-30 16:16 | XMS_ITS | Encounter Summary ---
Author Organization [employer] Address 75 [facility] 7t [place] [address] Care Team Providers Care Position Clerk Name Role Phone Siobhan Gregory MD Primary Care Provide r Encounter Details Date Type Department Care Team (Late st Contact Info) Description 10/25/2022 Orders Only [facility] MEDICINE [address] [place] [phone] Chata Bear LPN Social History Tobacco Use [...] 2:45 PM EST Office Visit [facility] MEDICINE [address] [place] [phone] Siobhan Gregory MD [address] [place] [address] documented as of this encounter Visit Diagnoses Not on filedocumented in this encounter Care Teams Position Clerk Relationship Specialty Start Date End Date Siobhan Gregory MD [address] [place] [address] PCP - General Family Medicine 01/01/19 Paty Farmer Tamper OperatorSheet Metal Duct Installer 12/07/23 documented as of this encounter
--- OUTSIDE RECORDS SUMMARY | 2024-07-30 16:16 | XMS_ITS | Encounter Summary ---
Author Organization [employer] Address 75 [facility] 7t [place] [address] Care Team Providers Care Oil Sales And Service Rep Name Role Phone Siobhan Gregory MD Primary [...] 2:45 PM EST Office Visit [facility] MEDICINE [address] [place] [address] Siobhan Gregory MD [address] [place] [address] documented as of this encounter Visit Diagnoses Not on filedocumented in this encounter Additional Health Concerns Assessment Noted Time PHQ-9 Depression Total Score: 18 01/22/ 024 2:19 PM EDT documented as of this encounter Care Teams Oil Sales And Service Rep Relationship Specialty Start Date End Date Siobhan Gregory MD [address] [place] [address] PCP - General Family Medicine 01/01/19 Paty Farmer Hatch TenderVascular Physician 12/07/23 documented as of this encounter
--- OUTSIDE RECORDS SUMMARY | 2024-07-30 16:16 | XMS_ITS | Encounter Summary ---
Author Organization [employer] Address 75 [facility] 7t [place] [address] Care Team Providers Care Film Processor Name Role Phone Siobhan Gregory MD Primary Care Provide r Reason for Visit * Reason Comments Med Refill Encounter Details Date Type Department Care Team ([facility] st Contact Info) Description 04/23/2024 Refill [facility] MEDICINE [address] [place], [place] [phone] Siobhan Gregory MD [address] [place], [place] [phone] Other specified hypothyroidism; Type 1 diabetes mellitus [...] Description 08/01/2024 2:45 PM EST Office Visit [facility] MEDICINE [address] [place] [address] Siobhan Gregory MD [address] [place] [address] documented as of this encounter Visit Diagnoses Diagnosis Other specified hypothyroidism Type 1 diabetes mellitus with other specified complication (CMS/HCC) Chronic pain in right shoulder Pain in joint, shoulder region Heartburn documented in this encounter Additional Health Concerns Assessment Noted Time PHQ-9 Depression Total Score: 18 024 2:19 PM EDT documented as of this encounter Care Teams Film Processor Relationship Specialty Start Date End Date Siobhan Gregory MD [address] [place] [phone] PCP - General Family Medicine 01/01/19 Paty Farmer Snack StewardProject Controls Scheduler 12/07/23 documented as of this encounter
--- OUTSIDE RECORDS SUMMARY | 2024-07-30 16:16 | XMS_ITS | Encounter Summary ---
Author Organization [employer] Address 75 [facility] 7t [place] [address] Care Team Providers Care Agriculturist Name Role Phone Siobhan Gregory MD Primary Care Provide r Reason for Visit * Reason Comments Med Refill Encounter Details Date Type Department Care Team (Late st Contact Info) Description 12/09/2022 Refill [facility] [address] [place], [place] [phone] Siobhan Gregory MD [address] [place], [place] [phone] Type 1 diabetes mellitus with other specified [...] Office Visit [facility] [address] [place], [place] [phone] Siobhan Gregory MD [address] [place], [place] [phone] documented as of this encounter Visit Diagnoses Diagnosis Type 1 diabetes mellitus with other specified complication (CMS/HCC) documented in this encounter Additional Health Concerns Assessment Noted Time PHQ-9 Depression Total Score: 20 023 10:41 AM EDT documented as of this encounter Care Teams Agriculturist Relationship Specialty Start Date End Date Siobhan Gregory MD [address] [place] [address] PCP - General Family Medicine 01/01/19 Paty Farmer Composition InstructorRegional Sales Engineer 12/07/23 documented as of this encounter
--- OUTSIDE RECORDS SUMMARY | 2024-07-30 16:16 | XMS_ITS | Encounter Summary ---
Author Organization [employer] Address 75 [facility] 7t [place] [address] Care Team Providers Care Topographical Drafter Name Role Phone Siobhan Gregory MD Primary Care Provide r Reason for Referral * Consultation (Urgent) - Authorized Specialty Diagnoses / Procedures Referred By Rosalinda bunch Referred To Contact Family Medicine Diagnoses Skin tag Mulu Garrett DO [address] [place] [address] Phone: tel: fax: Referral ID Status Reason Start Date Expiration Date Visits Requested Visits Authorized [id number] Authorized Specialty Services Required 07/03/2024 07/03/2025 1 1 * Consultation (Urgent) - Canceled Specialty Diagnoses / Procedures Referred By Rosalinda bunch Referred To Contact General Surgery Diagnoses Epidermal cyst Mulu Garrett DO [address] [place] [address] Phone: tel: fax: Referral ID Status Reason Start Date Expiration Date Visits Requested Visits Authorized [id number] Canceled Specialty Services Required 07/03/2024 07/03/2025 1 1 Reason for Visit * Reason Comments Finger Injury Encounter Details Date Type Department Care Team (Late st Contact Info) Description 07/03/2024 11:45 AM EST Office Visit [facility] MEDICINE [address] [place] [address] Mulu Garrett DO [address] [place], [place] Epidermal cyst (Primary Dx); Skin tag [...] tag Recurrent sx, desiring removal -referred to [facility] derm for eval --Follow-up with PCP as [...] reviewed the information by the scribe, Michael Kednrick, for accuracy and agree with its content. documented in this encounter Plan of Treatment Upcoming Encounters Date Type Department Care Team (Late st Contact Info) Description 08/01/2024 2:45 PM EST Office Visit [facility] MEDICINE [address] [place] [address] Siobhan Gregory MD [address] [place] [address] Scheduled Referrals Name Type Priority Associated Diagnoses Orde r Schedule Referral to General Surgery Outpatient Referral Urgent Epidermal cyst Expected: 07/03/2024 (Approximate), Expires: 07/03/2025 Referral to [facility] Derm Skin Adult Outpatient Referral Urgent Skin tag Expected: 07/03/2024 (Approximate), Expires: 07/03/2025 documented as of this encounter Visit Diagnoses Diagnosis Epidermal cyst- Primary Sebaceous cyst Skin tag Unspecified hypertrophic and atrophic condition of skin documented in this encounter Additional Health Concerns Assessment Noted Time PHQ-9 Depression Total Score: 18 024 2:19 PM EDT documented as of this encounter Care Teams Topographical Drafter Relationship Specialty Start Date End Date Siobhan Gregory MD [address] [place] [address] PCP - General Family Medicine 01/01/19 Paty Farmer Survey TechnologistBroadloom Weaver 12/07/23 documented as of this encounter
== END 2024-07-30 13:14 | disposition home or self-care (01) ==
LOC: HO.LNP 13:13
PROVIDERS: PCP Internal Medicine; Visit Provider Surgery
DX: L98.9 Disorder of the skin and subcutaneous tissue, unspecified (principal); B07.9 Viral wart, unspecified; L02.511 Cutaneous abscess of right hand
CPT/HCPCS: 10160; 11102; 88305; 99202; J2004

== ENCOUNTER 2024-08-13 14:05 | Outpatient (AMB) | payer MEDICAID, SELFPAY ==
--- NOTE | 2024-08-13 14:08 | A.OFFVIS_ITS ---
Intake Visit Reasons: s/p excision Epidermal cyst Intake Note: Patient here s/p 1. exc on Lt upper lip 2. I&D Rt index finger. Patient c/o: reports incision site healing well. Survey Research Teacher Required: No Allergies No Known Allergies [No Known Allergies*] Allergy (Verified 07/30/24 13:21) HPI Comments Details: Patient presents 1. Evaluation of left upper lip lesion excised 2. Right hand digit cyst PFSH Medical History Diabetes type I Hypercholesterolemia Hypothyroidism Surgical History (Updated 08/10/24 @ 09:19 by LEI Engel) Hx of surgical procedure (07/30/24) H/O elbow surgery Family History Mother Pelvic cancer Father Diabetes Paternal Aunt Diabetes Social History Alcohol intake: never Patient Tobacco Use Status: Never used Tobacco Current occupational status: disabled Current occupation: lt hand Physical Exam HEENT Other: Left upper lip lesions healing very well. Extrem Other: Cystic process of digit of right hand is markedly decreased in size. Assessment & Plan Assessment & Plan (1) Skin lesion of face: Code(s): L98.9 - Disorder of the skin and subcutaneous tissue, unspecified Category: Surgical (2) Digital mucous cyst of finger of right hand: Code(s): M67.441 - Ganglion, right hand Category: Surgical Plan At present, patient will be treated conservatively. He has been given local instructions and will otherwise follow-up p.r.n.. All questions answered. Coding Level of Care Code Global (54576) Diagnoses Skin lesion of face L98.9 Digital mucous cyst of finger of right hand M67.441
--- OUTSIDE RECORDS SUMMARY | 2024-08-13 16:03 | XMS_ITS | Encounter Summary ---
Author Organization [employer] Address [address] [facility] 7t [place] [address] Care Team Providers Care Photographic Spotter Name Role Phone Siobhan Gregory MD Primary Care Provide r Reason for Visit * Reason Comments Med Refill Encounter Details Date Type Department Care Team (Late st Contact Info) Description 06/07/2023 Refill [facility] MEDICINE [address] [place], [place] [phone] Christy Long FNP [address] [place], [place] [phone] Social History Tobacco Use Types Packs/Day Years [...] Care Team (Late st Contact Info) Description 10/31/2024 2:45 PM EDT Office Visit [facility] MEDICINE [address] [place] [address] Siobhan Gregory MD [address] [place] [address] documented as of this encounter Visit Diagnoses Not on filedocumented in this encounter Additional Health Concerns Assessment Noted Time PHQ-9 Depression Total Score: 20 023 10:41 AM EDT documented as of this encounter Care Teams Photographic Spotter Relationship Specialty Start Date End Date Siobhan Gregory MD [address] [place] [address] PCP - General Family Medicine 01/01/19 Paty Farmer Line Appliance AssemblerTower Air Traffic Control Specialist 12/07/23 documented as of this encounter
--- OUTSIDE RECORDS SUMMARY | 2024-08-13 16:03 | XMS_ITS | Encounter Summary ---
Author Organization [employer] Address [address] [facility] 7t [place] [address] Care Team Providers Care Motorcycle Repair Shop Supervisor Name Role Phone Siobhan Gregory MD Primary Care Provide r Encounter Details Date Type Department Care Team (Latest Contact Info) Description 08/01/2024 Travel Social History Tobacco Use Types Packs/Day Years Used Date Smoking Tobacco: Never Passive Smoke Exposure: Never Smokeless Tobacco: Never Depression Answer Date Recorded Patient Health Questionnaire-9 Score 0 08/01/2024 Patient Health Questionnaire-9 Score 0 08/01/2024 Last PHQ-9: Questionnaire Data Not on file 0 08/01/2024 Housing Stability Answer Date Recorded What is [...] Answer Date Recorded Patient Health Questionnaire-2 Score 0 08/01/2024 Internet Access Answer Date Recorded Internet Access [...] Description 10/31/2024 2:45 PM EDT Office Visit [facility] MEDICINE [address] [place] [address] Siobhan Gregory MD [address] [place] [address] documented as of this encounter Visit Diagnoses Not on filedocumented in this encounter Additional Health Concerns Assessment Noted Time PHQ-9 Depression Total Score: 0 08/01/19 25 2:15 PM EST documented as of this encounter Care Teams Motorcycle Repair Shop Supervisor Relationship Specialty Start Date End Date Siobhan Gregory MD [address] [place] [phone] PCP - General Family Medicine 01/01/[address] Magistrate 12/07/23 documented as of this encounter
--- OUTSIDE RECORDS SUMMARY | 2024-08-13 16:03 | XMS_ITS | Encounter Summary ---
Author Organization [employer] Address [address] [facility] 7t [place] [address] Care Team Providers Care Barber Shop Operator Name Role Phone Siobhan Gregory MD Primary Care Provide r Encounter Details Date Type Department Care Team (Late st Contact Info) Description 07/30/2024 Orders Only GENERIC EXTERNAL DATA DEPARTMENT Provider, Generic External Data Social History Tobacco Use Types Packs/Day Years [...] Description 10/31/2024 2:45 PM EDT Office Visit [facility] MEDICINE [address] [place], [place] [phone] Siobhan Gregory MD [address] [place], [place] [phone] documented as of this encounter Procedures Procedure Name Priority Date/Time Associated Diagnosis Comments GROSS AND MICROSCOPIC LEVEL 4 Routine 07/30/2024 1:30 PM EST documented in this encounter Results * Gross and Microscopic Level 4 (07/30/2024 1:30 PM EST) 07/30/2024 1:30 PM EST 07/30/2024 2:30 PM EST [facility] - 08/01/2024 2:36 PM EST ----- ------- Name: Shilo Miller ?Age/Sex: 64/M ? : 1960 Unit#: [id number] ?? Attend Dr: Kenyon Yarbruogh MD ?Re07/30/24 ?Status: DEP REF ? Location: HO.LNP ?Disch: ? ----- ------- SPEC : [id number] ?RECD: 07/30/24 ? STATUS: ??SOUT ? REQ NUM: [id number] ? NAFISA: 07/30/24-0 ? SUBM DR: Kenyon Yarbrough MD ? ENTERED: ??07/30/24 ?SP TYPE: Surgical ? OTHR DR: Siobhan Gregory MD ? ORDERED: ??Gross Micro L4 ? Diagnosis ?? Skin, left upper lip, biopsy: ??Verrucous proliferation with reactive changes; negative ?? for malignancy. ? 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 changes; there may be a degree of actinic injury present as well. ??If the lesion ?? persists, recommend complete excision to rule out a more worrisome process. ?Clinical History Cyst vs IDN ?Microscopic Description Microscopic sections reviewed. ? Material Received ?? Left upper lip cyst vs IDN ? Gross Description Received in formalin labeled ?left upper lip? is a fragment of white skin measuring 0.2 cm in greatest dimension. ??The skin surface is smooth. ??The underside is white and unremarkable. ??Specimen is wrapped in lens paper and entirely submitted for microscopic examination, 1 piece in cassette A. ??([facility]) This case was reviewed intradepartmentally. Copies To: ?? Siobhan Gregory MD ?? [facility] ?? [address] ?? [place], [place] ?? [phone] ?? Kenyon Yarbrough MD ?? [facility] ?? [address] ?? [place], [place] ?? [phone] ?? [email or web address] ? CONTINUED ON NEXT PAGE ----- ------- Name: Shilo Miller ?Age/Sex: 64/M ? : 1960 Unit#: [id number] ?? Attend Dr: Kenyon Yarbrough MD ?Re07/30/24 ?Status: DEP REF ? Location: HO.LNP ?Disch: ? ----- ------- SPEC : [id number] ?RECD: 07/30/24-1429 ? STATUS: ??SOUT ? REQ NUM: [id number] ? NAFISA: 07/30/24-1329 ? SUBM DR: Kenyon Yarbrough MD ? ENTERED: ??07/30/24-1437 ?SP TYPE: Surgical ? OTHR : Siobhan Gregory MD ? ORDERED: ??Gross Micro L4 ? ----- ------- Signed (signature on file) Joe Miranda MD 08/01/24 728 ? ----- ------- ? END OF REPORT ? us Generic External Data Provider LAB CYTOLOGY ORDE RABLES Final Result [facility] [address] [place] [address] [phone] documented in this encounter Visit Diagnoses Not on filedocumented in this encounter Additional Health Concerns Assessment Noted Time PHQ-9 Depression Total Score: 18 01/22/ 024 2:19 PM EDT documented as of this encounter Care Teams Barber Shop Operator Relationship Specialty Start Date End Date Siobhan Gregory MD [address] [place] [address] PCP - General Family Medicine 01/01/19 Paty Farmer Orange GrowerWorkers Compensation Claims Adjuster 12/07/23 documented as of this encounter
--- OUTSIDE RECORDS SUMMARY | 2024-08-13 16:03 | XMS_ITS | Encounter Summary ---
Author Organization [employer] Address [address] [facility] 7t [place] [address] Care Team Providers Care Stoker Erector And Servicer Name Role Phone Siobhan Gregory MD Primary Care Provide r Encounter Details Date Type Department Care Team ([facility] st Contact Info) Description 07/18/2024 Telephone [facility] MEDICINE [address] [place], [place] [phone] Kareen Rodriguez RN [address] [place], [place] [phone] Social History Tobacco Use Types Packs/Day Years [...] note were not included. Triage call with [facility] [place] [phone]. Pt was called x2 regarding Pt portal message below. Loan Review Analyst left voice message to call [facility] triage line at [phone]. Tiffanie Vasquez Medicine Red Team Nurses; Tad [...] to be seen with a surgeon at [facility] for this patient stated I am still waiting for the referral I haven't heard anything about it since my last visit there and this is getting painfully worse patient was informed by parts data writer message will be sent to team and triage. documented in this encounter Plan of Treatment Upcoming Encounters Date Type Department Care Team (Late st Contact Info) Description 10/31/2024 2:45 PM EDT Office Visit [facility] MEDICINE [address] [place] [address] Siobhan Gregory MD [address] [place], [place] [phone] documented as of this encounter Visit Diagnoses Not on filedocumented in this encounter Additional Health Concerns Assessment Noted Time PHQ-9 Depression Total Score: 18 08/19/ 024 2:19 PM EDT documented as of this encounter Care Teams Stoker Erector And Servicer Relationship Specialty Start Date End Date Siobhan Gregory MD [address] [place] [address] PCP - General Family Medicine 01/01/19 Paty Farmer Proposal AnalystToggle Press Folder And Feeder 12/07/23 documented as of this encounter
--- OUTSIDE RECORDS SUMMARY | 2024-08-13 16:03 | XMS_ITS | Encounter Summary ---
Author Organization [employer] Address [address] [facility] 7t [place] [address] Care Team Providers Care Paper Mill Superintendent Name Role Phone Siobhan Gregory MD Primary Care Provide r Reason for Visit * Reason Comments Med Refill Encounter Details Date Type Department Care Team ([facility] st Contact Info) Description 04/23/2024 Refill [facility] MEDICINE [address] [place], [place] [phone] Siobhan Gregory MD [address] [place], [place] [phone] Other specified hypothyroidism; Type 1 diabetes mellitus [...] Description 10/31/2024 2:45 PM EDT Office Visit [facility] MEDICINE [address] [place] [phone] Siobhan Gregory MD [address] [place] [address] documented as of this encounter Visit Diagnoses Diagnosis Other specified hypothyroidism Type 1 diabetes mellitus with other specified complication (CMS/HCC) Chronic pain in right shoulder Pain in joint, shoulder region Heartburn documented in this encounter Additional Health Concerns Assessment Noted Time PHQ-9 Depression Total Score: 18 024 2:19 PM EDT documented as of this encounter Care Teams Paper Mill Superintendent Relationship Specialty Start Date End Date Siobhan Gregory MD [address] [place] [address] PCP - General Family Medicine 01/01/19 Paty Farmer Communication Equipment MechanicPiece Work Inspector 12/07/23 documented as of this encounter
--- OUTSIDE RECORDS SUMMARY | 2024-08-13 16:03 | XMS_ITS | Encounter Summary ---
Author Organization [employer] Address [address] [facility] 7t [place] [address] Care Team Providers Care Test Kitchen Home Economist Name Role Phone Siobhan Gregory MD Primary Care Provide r Reason for Visit * Reason Comments Med Refill Encounter Details Date Type Department Care Team (Late st Contact Info) Description 06/06/2023 Refill [facility] MEDICINE [address] [place], [place] [phone] Siobhan Gregory MD [address] [place], [place] [phone] Social History Tobacco Use Types Packs/Day Years [...] Description 10/31/2024 2:45 PM EDT Office Visit [facility] MEDICINE [address] [place] [address] Siobhan Gregory MD [address] [place] [address] documented as of this encounter Visit Diagnoses Not on filedocumented in this encounter Additional Health Concerns Assessment Noted Time PHQ-9 Depression Total Score: 20 023 10:41 AM EDT documented as of this encounter Care Teams Test Kitchen Home Economist Relationship Specialty Start Date End Date Siobhan Gregory MD [address] [place] [address] PCP - General Family Medicine 01/01/19 Ptay Farmer Green Building ArchitectAuto Leasing Manager 12/07/23 documented as of this encounter
--- OUTSIDE RECORDS SUMMARY | 2024-08-13 16:03 | XMS_ITS | Encounter Summary ---
Author Organization [employer] [facility] Address [address] [facility] 7t [place] [address] Care Team Providers Care Utility Bag Assembler Name Role Phone Siobhan Gregory MD Primary Care Provide r Reason for Visit * Reason Comments Med Refill Encounter Details Date Type Department Care Team (Late st Contact Info) Description 09/08/2022 Refill [facility] MEDICINE [address] [place] [address] Chelsie Covarrubias ANP [address] [place] [address] Muscle spasm Social History Tobacco Use Types [...] Description 10/31/2024 2:45 PM EDT Office Visit [facility] MEDICINE [address] [place] [address] Siobhan Gregory MD [address] [place], [place] [phone] documented as of this encounter Visit Diagnoses Diagnosis Muscle spasm Spasm of muscle documented in this encounter Care Teams Utility Bag Assembler Relationship Specialty Start Date End Date Siobhan Gregory MD [address] [place] [address] PCP - General Family Medicine 01/01/19 Paty Farmer Chemical PathologistWire Coating Operator Metal 12/07/23 documented as of this encounter
--- OUTSIDE RECORDS SUMMARY | 2024-08-13 16:03 | XMS_ITS | Encounter Summary ---
Author Organization [employer] Address [address] [facility] 7t [place] [address] Care Team Providers Care Sheep Farm Worker Name Role Phone Siobhan Gregory MD Primary Care Provide r Reason for Visit * Reason Comments Med Refill Encounter Details Date Type Department Care Team ([facility] st Contact Info) Description 07/17/[address] [facility] MEDICINE [address] [place], [place] [phone] Siobhan Gregory MD 230 [place], [place] [phone] Type 1 diabetes mellitus with other specified [...] Description 10/31/2024 2:45 PM EDT Office Visit [facility] MEDICINE [address] [place] [address] Siobhan Gregory MD [address] [place] [address] documented as of this encounter Visit Diagnoses Diagnosis Type 1 diabetes mellitus with other specified complication (CMS/HCC) documented in this encounter Additional Health Concerns Assessment Noted Time PHQ-9 Depression Total Score: 18 024 2:19 PM EDT documented as of this encounter Care Teams Sheep Farm Worker Relationship Specialty Start Date End Date Siobhan Gregory MD [address] [place] [address] PCP - General Family Medicine 01/01/19 Paty Farmer Charter CoordinatorPediatric Cns 12/07/23 documented as of this encounter
--- OUTSIDE RECORDS SUMMARY | 2024-08-13 16:03 | XMS_ITS | Encounter Summary ---
Author Organization [employer] Address [address] [facility] 7t [place] [address] Care Team Providers Care Lumber Racker Name Role Phone Siobhan Gregory MD Primary Care Provide r Encounter Details Date Type Department Care Team ([facility] st Contact Info) Description 06/07/2023 Orders Only [facility]S [address] [place] [address] Mulu Lewis LPN Social History Tobacco Use [...] Description 10/31/2024 2:45 PM EDT Office Visit [facility] MEDICINE [address] [place] [address] Siobhan Gregory MD [address] [place] [address] documented as of this encounter Visit Diagnoses Not on filedocumented in this encounter Additional Health Concerns Assessment Noted Time PHQ-9 Depression Total Score: 20 023 10:41 AM EDT documented as of this encounter Care Teams Lumber Racker Relationship Specialty Start Date End Date Siobhan Gregory MD [address] [place] [address] PCP - General Family Medicine 01/01/19 Paty Farmer Academic Support AssistantAdjudication Specialist 12/07/23 documented as of this encounter
--- OUTSIDE RECORDS SUMMARY | 2024-08-13 16:03 | XMS_ITS | Clinical Summary ---
Author Organization [employer] Address [address] [facility] 7t [place] [address] Care Team Providers Care Platform Builder Name Role Phone Siobhan Gregory MD Primary Care Provide r Allergies Active Allergy Reactions Criticality Noted Date Comments Joni Inhibitors Cough 01/05/2013 Simvastatin 06/02/2010 Other reaction(s): increased LFTs Medications famotidine (Pepcid) 40 MG tabletIndications :Heartburn TAKE 1 TABLET BY MOUTH EVERYDAY AT BEDTIME 90 tablet 1 Active glucose blood (FreeStyle InsuLinx Test) test stripIndications: Type 1 diabetes mellitus with other specified complication (CMS/HCC) Check by fingerstick route up to 7 times a day. 200 each 11 Active amLODIPine (Norvasc) 5 MG tabletIndications :Primary hypertension Take 1 tablet (5 mg) by mouth Once per day. 30 tablet 11 024 2024 Active insulin glargine (Lantus) 100 UNIT/ML injectionIndicati ons:Type 1 diabetes mellitus with other specified complication (CMS/HCC) 35 U AM and 10 U PM inject subcutaneous 20 mL 3 Active Blood Pressure Monitoring (Blood Pressure Cuff) miscIndications:P rimary hypertension 1 each Once daily. 1 each Active Aspirin Low Dose 81 MG EC tabletIndications :Type 1 diabetes mellitus with other specified complication (CMS/HCC) TAKE 1 TABLET (81 MG) BY MOUTH ONCE PER DAY. 90 tablet 1 024 Active cyclobenzaprine (Flexeril) 10 MG tabletIndications :Chronic [...] U-100 (BD Insulin Syringe U/F) 31G X 516 0.5 mL miscIndications:T ype 1 diabetes mellitus with other specified complication (CMS/HCC) USE DIRECTED 4 TIMES DAILY 100 each 3 Active Insulin Lispro (HumaLOG) 100 UNIT/ML solutionIndicatio ns:Type 1 diabetes mellitus with other specified complication (CMS/HCC) Inject 0.1 mL (10 Units) as directed before breakfast AND 0.1 mL (10 Units) before lunch AND 0.1 mL (10 Units) before evening meal. 9 mL 025 2024 Active losartan (Cozaar) 100 MG tabletIndications :Benign hypertension Take 1 tablet (100 mg) by mouth in the morning. 90 tablet 1 025 Active Insulin Lispro 100 UNIT/ML solution INJECT 5 UNITS BEFORE MEALS IF SUGAR 150-250. INJECT 8 UNITS BEFORE MEALS IF SUGAR MORE THAN 250. 30 mL 5 024 2024 Discontinued insulin syringe-needle U-100 (BD Insulin Syringe U/F) 31G X 516 0.5 mL miscIndications:T ype 1 diabetes mellitus with other specified complication (CMS/HCC) INJECT 1 [address]MAL ROUTE 4 TIMES EVERY DAY FOR USE WITH HUMALOG 100 each 3 024 2024 Discontinued atorvastatin (Lipitor) 40 MG tabletIndications :Type 1 diabetes mellitus with other specified complication (CMS/HCC) Take 1 tablet (40 mg) by mouth at bedtime. 90 tablet 1 024 2024 Discontinued hydrALAZINE (Apresoline) 25 MG tabletIndications :Pruritus Take one tablet every 8 hours as needed for itchiness 30 tablet 024 2024 Discontinued losartan (Cozaar) 100 MG tabletIndications :Benign hypertension TAKE 1 TABLET BY MOUTH EVERY DAY IN THE MORNING 90 tablet 1 024 2024 Discontinued(R eorder (will not trigger notification to Pharmacy)) Insulin Lispro (HumaLOG) 100 UNIT/ML solutionIndicatio ns:Type 1 diabetes mellitus with other specified complication (CMS/HCC) Inject 0.1 mL (10 Units) as directed before breakfast AND 0.05 mL (5 Units) before lunch AND 0.05 mL (5 Units) before evening meal. 6 mL 2 024 2024 Discontinued Active Problems Problem Noted [...] 1 diabetes mellitus 10/25/2017 Assessment & Plan (08/01/2024 4:52 PM EST): Diabetes is: controlled - Lab Results Component Value Date HGBA1C 5.8 08/01/2024 HGBA1C 5.4 04/24/2024 HGBA1C 5.8 10/20/2023 - Lab Results Component Value Date MICROALBUR <5.0 12/09/2023 CREATININE 0.80 12/09/2023 -Changes: Patient tells me he sometimes has a need to increase his insulin with meals up to 10 units depending on what he eats increase on the dose is going to be reflected on the next prescription - Diabetic eye exam: Up-to-date - Diabetic foot exam: Referral done - Continue lifestyle modifications - Continue current medications - Follow up: 3 months Assessment & Plan (04/24/2024 3:23 PM EST): [...] for him to request 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 Depressive disorder 11/22/2011 Primary hypertension 11/22/2011 Assessment & Plan (08/01/2024 4:53 PM EST): Today blood pressure reading was in the high side, I advised low-sodium diet, on further questioning he is only taking amlodipine for blood pressure I advised to take his losartan also every day, just in case I sent prescription to the pharmacy Assessment & Plan (04/24/2024 3:22 PM EST): [...] Encounters Date Type Department Care Team Description 08/01/2024 2:45 PM EST Office Visit [facility] [address] [place] [phone] Siobhan Gregory MD Primary hypertension (Primary Dx); Type 1 diabetes mellitus with other specified complication ([facility]/HCC); Benign hypertension 08/01/2024 Travel 07/30/2024 Orders Only GENERIC EXTERNAL DATA DEPARTMENT Provider, Generic External Data 07/18/2024 Orders Only [address] [phone] Mulu Garrett DO Epidermal cyst (Primary Dx) 07/18/2024 Telephone [facility] [address] [place] [phone] Na Encarnacion, housekeeper/custodian/laundry worker 07/18/2024 Telephone [facility] [address] [place] [phone] Kareen Rodriguez, LINDA 07/18/2024 Patient Outreach [facility] [address] [place] [phone] Siobhan Gregory MD Pre-visit Planning (SDOH screening negative and tobacco screening negative) 07/17/2024 Refill [facility] [address] [place] [phone] Siobhan Gregory MD Type 1 diabetes mellitus with other specified complication (CMS/HCC) 07/03/2024 11:45 AM EST Office Visit [facility] [address] [place] [phone] Mulu Garrett DO Epidermal cyst (Primary Dx); Skin tag 07/03/2024 Travel 07/02/[address] [phone] Siobhan Gregory MD Nurse Triage 06/03/2024 Refill [facility] [address] [place] [address] [phone] Siobhan Gregory MD Acute pain of right shoulder 05/23/2024 Refill [facility] [address] [place] [phone] Siobhan Gregory MD Other specified hypothyroidism from [...] t he electric, gas, oil or water [employer] threatened to shut off services in your [...] Sign Reading Time Taken Comments Blood Pressure 139/86 08/01/2024 4:49 PM EST Pulse 87 08/01/2024 2:03 PM EST Temperature 36.6 ??C (97.8 ??F) 08/01/2024 2:03 PM ES T Respiratory Rate 20 08/01/2024 2:03 PM EST Oxygen Saturation 98% 08/01/2024 2:03 PM EST Inhaled Oxygen Concentration - - Weight 74.1 kg (163 lb 6.4 oz) 08/01/2024 2:03 P M EST Height 149.9 cm (4' 11 ) 08/01/2024 2:03 PM EST Body Mass Index 33 08/01/2024 2:03 PM EST Plan of Treatment Upcoming Encounters Date Type Department Care Team (Late st Contact Info) Description 10/31/2024 2:45 PM EDT Office Visit [facility] [address] [place] [address] Siobhan Gregory MD [address] [place] [address] Health Maintenance Due Date Last Done Comments CT Colonography 1960 Colonoscopy 1961 FIT DNA/Cologuard 1960 FOBT 1960 Sigmoidoscopy 1961 Diabetes: Foot Exam 1971 Eye Exam 1971 RSV Patients and Patients Aged 60 years or older (1 - Risk 60-74 years 1-dose series) 2021 Colorectal Cancer Screening 07/21/2023 FIT 07/21/2023 07/21/2022 Diabetes: Urine Protein Screening 12/08/2024 12/09/2023, 11/03/2022 Lipid Panel 12/08/2024 12/09/2023, 0506/2022, 11/05/2021, Additional history exists Diabetes: Hemoglobin A1C 01/29/2025 025, 04/24/2024, 10/20/2023, Additional history exists Alcohol/Substance Use Screening 04/24/2025 04/24/2024 SDOH Screening 07/18/2025 07/18/2024 Depression Screening 08/01/2025 08/01/2024, 08/01/19 25 Tobacco Screening 08/01/2025 08/01/2024 DTaP/Tdap/Td Vaccines (3 - Td or Tdap) [...] Diagnosis Comments POCT GLYCATED HEMOGLOBIN, TOTAL Routine 08/01/2024 2:17 PM EST Type 1 diabetes mellitus with other specified complication (CMS/HCC) POCT GLUCOSE Routine 08/01/2024 2:16 PM EST Type 1 diabetes mellitus with other specified complication (CMS/HCC) GROSS AND MICROSCOPIC LEVEL 4 Routine 07/30/2024 1:30 PM EST HEPATITIS C VIRAL RNA, QUANTITATIVE, REAL-TIME PCR [...] Health Maintenance Results * POCT HGB A1C (08/01/2024 2:17 PM EST) Hemoglobin A1C 5.8 4.0 - 6.0 % Blood 08/01/2024 2:17 PM EST Siobhan Corral MD POINT OF CARE TEST ENTER/EDIT ORDERABLES Edited Result - Final * (ABNORMAL) POCT Glucose (08/01/2024 2:16 PM EST) Glucose Blood, POC 52(A) 60 - 200 mg/dL Blood Capillary blood specimen / Unknown 08/01/2024 2:16 PM EST Siobhan Corral MD POINT OF CARE TEST EN TER/EDIT ORDERABLES Final Result * Gross and Microscopic Level 4 (07/30/2024 1:30 PM EST) 07/30/2024 1:30 PM EST 07/30/2024 2:30 PM EST Narrative [facility] - 08/01/2024 2:36 PM EST ----- ------- Name: Shilo Miller ?Age/Sex: 64/M ? : 1960 Unit#: [id number] ?? Attend Dr: Kenyon Yarbrough MD ?Re07/30/24 ?Status: DEP REF ? Location: HO.LNP ?Disch: ? ----- ------- SPEC : [id number] ?RECD: 07/30/24-1429 ? STATUS: ??SOUT ? REQ NUM: [id number] ? NAFISA: 07/30/24-1329 ? SUBM DR: Kenyon Yarbrough MD ? ENTERED: ??07/30/24-1437 ?SP TYPE: Surgical ? OTHR DR: Siobhan [...] microscopic examination, 1 piece in cassette A. ??([facility] [place]) This case was reviewed intradepartmentally. Copies To: ?? Siobhan Gregory MD ?? [facility] ?? [address] ?? [place] [address] ?? [phone] ?? Kenyon Yarbroguh MD ?? [facility] ?? [address] ?? [place] [address] ?? [phone] ?? [email or web address] ? CONTINUED ON NEXT PAGE ----- ------- Name: Shilo Miller ?Age/Sex: 64/M ? : 1960 Unit#: [id number] ?? Attend Dr: Kenyon Yarbrough MD ?Re07/30/24 ?Status: DEP REF ? Location: HO.LNP ?Disch: ? ----- ------- SPEC : [id number] ?RECD: 07/30/24-1429 ? STATUS: ??SOUT ? REQ NUM: [id number] ? NAFISA: 07/30/24-0 ? SUBM DR: Kenyon Yarbrough MD ? ENTERED: ??07/30/24-1437 ?SP TYPE: Surgical ? OTHR DR: Siobhan Gregory MD ? ORDERED: ??Gross Micro L4 ? ----- ------- Signed (signature on file) Joe Miranda MD 08/01/24 1436 ? ----- ------- ? END OF REPORT ? us Generic External Data Provider LAB CYTOLOGY PER HARRELL Final Result [facility] [address] [place] [phone] * (ABNORMAL) Lipid Panel with Reflex to Direct LDL (12/09/2023 3:49 PM EDT) Triglycerides 106 <150 mg/dL [facility] Comment:Desirable Triglyceri de: less than 150 mg/dLBorderline High Triglyceride 150-199 mg/dLHigh Triglyceride: 200-499 mg/dLVery High Triglyceride: greater than or equal to 5OO mg/dL Cholesterol 170 <200 mg/dL [facility] Comment:Desirable Cholestero l: less than 200 mg/dLBorderline High Cholesterol: 200-239 mg/dLHigh Cholesterol: greater than 239 mg/dL LDL Cholesterol Calculated 100(H) <100 mg/dL [facility] Comment:Desirable LDL: less than 100 mg/dLNear Optimal/Above Optimal LDL: 110- 129 mg/dLBorderline High LDL: 130-159 mg/dLHigh LDL: 160-189 mg/dLVery High LDL: greater than or equal to 190 mg/dL HDL Cholesterol 49 >40 mg/dL [facility] Comment:Desirable HDL: great er than 40 mg/dL Note: This HDL assay may give artificially low results in patients with liver disease. Blood 12/09/2023 3:49 PM EDT 12/09/2023 5:02 PM EDT us Siobhan Corral MD LAB BLOOD ORDERABLES Final Result Performing Organization Address [facility] Co de Phone Number [facility] [address] [place] [phone] * Hepatitis C Viral RNA, Quantitative, Real-Time PCR (12/09/2023 3:49 PM EDT) Pathologist [facility] Hepatitis C Viral Load <15 NOT DETECTED NOT DETECTED IU/mL [facility] HCV Log PCR <1.18 NOT DETECTED NOT DETECTED Log IU/mL [facility] Comment:For additional infor mation, please refer [email or web address].Groovideo/faq/ETW67v7(This link is being provided for informational/educational purposes only.)THIS TEST WAS PERFORMED AT:[employer] [place] [phone] GOMEZ MD Blood 12/09/2023 3:49 PM EDT 12/09/2023 5:02 PM EDT us Siobhan Corral MD LAB BLOOD ORDERABLES Final Result Performing Organization Address [facility] Co de Phone Number [facility] [address] [place] [phone] * Albumin, Random Urine W/Creatinine (12/09/2023 3:49 PM EDT) Creatinine, Urine 72.39 mg/dL [facility] Microalbumin Urine <5.0 mg/L H [facility] Microalbum Creatinine Ratio Ur TNP <30 ug/mg cr [facility] Comment:Unable to calculate albumin/creatinine ratio due to lowmicroalbumin or creatinine result. Urine (Urine, Random) 12/09/2023 3:49 PM EDT 12/09/2023 5:09 PM EDT us Siobhan Corral MD LAB URINE ORDERABLES Final Result Performing Organization Address [facility]/ZIP Co de Phone Number [facility] [address] [place] [phone] * HIV-1/2 Antigen and Antibodies, Fourth Generation, with Reflexes (12/09/2023 3:49 PM EDT) HIV AB/AG Nonreactive Nonreactive [facility] Comment:HIV-1 p24 Ag and/or HIV-1/HIV-2 Ab not detected.A test result that is nonreactive does not exclude thepossibility of exposure to or infection with HIV-1 and/orHIV-2. Nonreactive results in this assay for individualswith prior exposure to HIV-1 and/or HIV-2 may be due toantigen and antibody levels that are below the limit ofdetection of this assay.The [employer] HIV Ag/Ab Combo assay result andsupplemental assay results should be interpreted inconjunction with the patient's clinical presentation,history and other laboratory results. If the results areinconsistent with clinical evidence, additional testing issuggested to confirm the result. Blood Venous blood specimen / Unknown 12/09/2023 3:49 PM EDT 12/09/2023 5:02 PM EDT us Siobhan Corral MD LAB BLOOD ORDERABLES Final Result Performing Organization Address [facility]/ZIP Co de Phone Number [facility] [address] [place] [phone] * Fecal immunochemical (07/21/2022 12:00 AM EST) FIT1 POSITIVE NEGATIVE [facility] FIT DATE 1 07/20/22 [facility] FIT2 NEGATIVE NEGATIVE [facility] FIT DATE 2 07/21/22 [facility] 07/21/2022 07/21/2022 3:1 3 PM EST us [facility] Exter nal Provider LAB BODY FLUIDS AND STOOLS ORDERABLES Final Result [facility] [address] [place], [place] [phone] from Last 3 Months or Most Recently Relevant to Health Maintenance Insurance [facility] [employer]3 Care Teams Platform Builder Relationship Specialty Start Date End Date Siobhan Gregory MD [address] [place] [address] PCP - General Family Medicine 01/01/19 Paty Farmer Nude ModelDewaxer 12/07/23
--- OUTSIDE RECORDS SUMMARY | 2024-08-13 16:03 | XMS_ITS | Encounter Summary ---
Author Organization [employer] Address [address] [facility] [address]t [place] [address] Care Team Providers Care Plant Superintendent Name Role Phone Siobhan Gregory MD Primary Care Provide r Reason for Visit * Reason Comments Pre-visit Planning SDOH screening negat kristina and tobacco screening negative Encounter Details Date Type Department Care Team ([facility] st Contact Info) Description 07/18/2024 Patient Outreach [facility] [address] [place] [address] Siobhan Gregory MD [address] [place], [place] [phone] Pre-visit Planning (SDOH screening negative and tobacco [...] Description 10/31/2024 2:45 PM EDT Office Visit [facility] [address] [place] [address] Siobhan Gregory MD [address] [place] [address] documented as of this encounter Visit Diagnoses Not on filedocumented in this encounter Additional Health Concerns Assessment Noted Time PHQ-9 Depression Total Score: 18 024 2:19 PM EDT documented as of this encounter Care Teams Plant Superintendent Relationship Specialty Start Date End Date Siobhan Gregory MD [address] [place] [phone] PCP - General Family Medicine 01/01/19 Paty Farmer Structural Steel WorkerYarn Dyer 12/07/23 documented as of this encounter
--- OUTSIDE RECORDS SUMMARY | 2024-08-13 16:03 | XMS_ITS | Encounter Summary ---
Author Organization [employer] Address [address] [facility] [address] [place] [address] Care Team Providers Care Lobster Fisherman Name Role Phone Siobhan Gregory MD Primary Care Provide r Reason for Visit * Reason Comments Follow-up Encounter Details Date Type Department Care Team ([facility] st Contact Info) Description 08/01/2024 2:45 PM EST Office Visit [facility] [address] [place], [place] [phone] Siobhan Gregory MD [address] [place], [place] [phone] Primary hypertension (Primary Dx); Type 1 diabetes mellitus with other specified complication (CMS/HCC); Benign hypertension Social History Tobacco Use Types Packs/Day Years [...] Mass Index 33 08/01/2024 2:03 PM EST documented in this encounter Progress Notes * Siobhan Corral MD - 08/01/2024 2:45 PM EST SUBJECTIVE: Shilo Tran is a 64 y.o. year old male who presents for Chronic Disease Management . Acute Concerns: None Social History Social History Narrative Not on file Patient Active Problem List Diagnosis Type 1 [...] pain Pruritus Chronic right-sided thoracic back pain No family history on file. Review of Systems Constitutional: Negative. HENT: Negative. Respiratory: Negative. Cardiovascular: Negative. OBJECTIVE: Vitals: 08/01/24 1403 08/01/24 1649 BP: (!) 154/88 139/86 BP Location: Left arm Patient Position: Sitting BP Cuff Size: Adult long Pulse: 87 Resp: 20 Temp: 97.8 ??F (36.6 ??C) TempSrc: Temporal SpO2: 98% Weight: 163 lb 6.4 oz (74.1 kg) Height: 4' 11 (1.499 m) Physical Exam Constitutional: Appearance: Normal appearance. Cardiovascular: Rate and Rhythm: Normal rate and regular rhythm. Pulmonary: Effort: Pulmonary effort is normal. Breath sounds: Normal breath sounds. Abdominal: General: Abdomen is flat. Palpations: Abdomen is soft. Musculoskeletal: Right lower leg: No edema. Left lower leg: No edema. Neurological: Mental Status: He is alert. Follow Up: Follow up in about 3 months (around 10/29/2024) for chronic conditions . Current Outpatient Medications on File Prior to Visit Medication Sig Dispense Refill Acetaminophen Extra Strength 500 MG tablet TAKE 2 TABLETS BY MOUTH EVERY 8 HOURS NEEDED (TAKE 2 TABLETS EVERY 8 HOURS FOR PAIN ONLY) 30 tablet 0 amLODIPine (Norvasc) 5 MG tablet Take 1 tablet (5 mg) by mouth Once per day. 30 tablet 11 Aspirin Low Dose 81 MG EC tablet TAKE 1 TABLET (81 MG) BY MOUTH ONCE PER DAY. 90 tablet 1 atorvastatin (Lipitor) 40 MG tablet TAKE 1 TABLET BY MOUTH AT BEDTIME 90 tablet 1 Blood Pressure Monitoring (Blood Pressure Cuff) misc 1 each Once daily. 1 each 0 cyclobenzaprine (Flexeril) 10 MG tablet Take 1 tablet (10 mg) by mouth if needed in the morning, atnoon, and at bedtime for muscle spasms (take one tablet only if pain). 30 tablet 1 famotidine (Pepcid) 40 MG tablet TAKE 1 TABLET BY MOUTH EVERYDAY AT BEDTIME 90 tablet 1 glucose blood (FreeStyle InsuLinx Test) test strip Check by fingerstick route up to 7 times a day. 200 each 11 insulin glargine (Lantus) 100 UNIT/ML injection 35 U AM and 10 U PM inject subcutaneous 20 mL 3 insulin syringe-needle U-100 (BD Insulin Syringe U/F) 31G X /16 0.5 mL misc USE DIRECTED 4 TIMES DAILY 100 each 3 levothyroxine (Synthroid, Levoxyl) 112 MCG tablet TAKE 1 TABLET BY MOUTH EVERY DAY BEFORE [id number] tablet 1 [DISCONTINUED] hydrALAZINE (Apresoline) 25 MG tablet Take one tablet every 8 hours as needed for itchiness 30 tablet 0 [DISCONTINUED] Insulin Lispro (HumaLOG) 100 UNIT/ML solution Inject 0.1 mL (10 Units) as directed before breakfast AND 0.05 mL (5 Units) before lunch AND 0.05 mL (5 Units) before evening meal. 6 mL 2 [DISCONTINUED] Insulin Lispro 100 UNIT/ML solution INJECT 5 UNITS BEFORE MEALS IF SUGAR 150-250. INJECT 8 UNITS BEFORE MEALS IF SUGAR MORE THAN 250. 30 mL 5 [DISCONTINUED] losartan (Cozaar) 100 MG tablet TAKE 1 TABLET BY MOUTH EVERY DAY IN THE MORNING 90 tablet 1 No current facility-administered medications on file prior to visit. Problem List Items Addressed This Visit Type 1 diabetes mellitus ([facility]) Diabetes is: controlled - Lab Results Component [...] current medications - Follow up: 3 months Relevant Medications Insulin Lispro (HumaLOG) 100 UNIT/ML solution Other Relevant Orders POCT Glucose (Completed) POCT HGB A1C (Completed) Primary hypertension - Primary Today blood pressure reading was in the high side, I advised low-sodium diet, on further questioning he is only taking amlodipine for blood pressure I advised to take his losartan also every day, just in case I sent prescription to the pharmacy Relevant Medications losartan (Cozaar) 100 MG tablet Other Visit Diagnoses Benign hypertension Relevant Medications losartan (Cozaar) 100 MG tablet documented in this encounter Miscellaneous Notes * Assessment & Plan Note - Siobhan Corral MD - 08/01/2024 4:53 PM EST Associated Problem(s): Primary hypertension Today blood pressure reading was in the high side, I advised low-sodium diet, on further questioning he is only taking amlodipine for blood pressure I advised to take his losartan also every day, just in case I sent prescription to the pharmacy * Assessment & Plan Note - Siobhan Corral MD - 08/01/2024 4:52 PM EST Associated Problem(s): Type 1 diabetes mellitus ([facility]) Diabetes is: controlled - Lab Results Component [...] current medications - Follow up: 3 months documented in this encounter Plan of Treatment Upcoming Encounters Date Type Department Care Team (Late st Contact Info) Description 10/31/2024 2:45 PM EDT Office Visit [facility] [address] [place] [phone] Siobhan Gregory MD [address] [place] [phone] documented as of this encounter Procedures Procedure Name Priority Date/Time Associated Diagnosis Comments POCT GLYCATED HEMOGLOBIN, TOTAL Routine 08/01/2024 2:17 PM EST Type 1 diabetes mellitus with other specified complication (CMS/HCC) POCT GLUCOSE Routine 08/01/2024 2:16 PM EST Type 1 diabetes mellitus with other specified complication (CMS/HCC) documented in this encounter Results * POCT HGB A1C (08/01/2024 2:17 PM EST) Hemoglobin A1C 5.8 4.0 - 6.0 % Blood 08/01/2024 2:17 PM EST us Siobhan Corral MD POINT OF CARE TEST ENTER/EDIT ORDERABLES Edited Result - Final * (ABNORMAL) POCT Glucose (08/01/2024 2:16 PM EST) Glucose Blood, POC 52(A) 60 - 200 mg/dL Blood Capillary blood specimen / Unknown 08/01/2024 2:16 PM EST us Siobhan Corral MD POINT OF CARE TEST EN TER/EDIT ORDERABLES Final Result documented in this encounter Visit Diagnoses Diagnosis Primary hypertension- Primary Unspecified essential hypertension Type 1 diabetes mellitus with other specified complication (CMS/HCC) Benign hypertension Essential hypertension, benign documented in this encounter Additional Health Concerns Assessment Noted Time PHQ-9 Depression Total Score: 0 08/01/19 25 2:15 PM EST documented as of this encounter Care Teams Lobster Fisherman Relationship Specialty Start Date End Date Siobhan Gregory MD [address] [place] [phone] PCP - General Family Medicine 01/01/19 Paty Farmer Chef HeadCustomer Experience Specialist 12/07/23 documented as of this encounter
--- OUTSIDE RECORDS SUMMARY | 2024-08-13 16:03 | XMS_ITS | Encounter Summary ---
Author Organization [employer] Address [address] [facility] 7t [place] [address] Care Team Providers Care Screen Printing Press Operator Name Role Phone Siobhan Gregory MD Primary Care Provide r Reason for Visit * Reason Comments Med Refill Encounter Details Date Type Department Care Team (Late st Contact Info) Description 12/09/2022 Refill [facility] [address] [place], [place] [phone] Siobhan Gregory MD [address] [place], [place] [phone] Type 1 diabetes mellitus with other specified [...] Description 10/31/2024 2:45 PM EDT Office Visit [facility] [address] [place] [address] Siobhan Gregory MD [address] [place], [place] [phone] documented as of this encounter Visit Diagnoses Diagnosis Type 1 diabetes mellitus with other specified complication (CMS/HCC) documented in this encounter Additional Health Concerns Assessment Noted Time PHQ-9 Depression Total Score: 20 023 10:41 AM EDT documented as of this encounter Care Teams Screen Printing Press Operator Relationship Specialty Start Date End Date Siobhan Gregory MD [address] [place] [address] PCP - General Family Medicine 01/01/19 Paty Farmer Zoology ProfessorEconomic Specialist 12/07/23 documented as of this encounter
--- OUTSIDE RECORDS SUMMARY | 2024-08-13 16:03 | XMS_ITS | Encounter Summary ---
Author Organization [employer] [facility] Address [address] [facility] 7t [place] [address] Care Team Providers Care Organ Recovery Coordinator Name Role Phone Siobhan Gregory MD Primary Care Provide r Encounter Details Date Type Department Care Team (Late st Contact Info) Description 10/25/2022 Orders Only [facility] [address] [place] [phone] Chata Bear LPN Social History Tobacco Use [...] Description 10/31/2024 2:45 PM EDT Office Visit [facility] [address] [place] [phone] Siobhan Gergory MD [address] [place] [phone] documented as of this encounter Visit Diagnoses Not on filedocumented in this encounter Care Teams Organ Recovery Coordinator Relationship Specialty Start Date End Date Siobhan Gregory MD [address] [place] [phone] PCP - General Family Medicine 01/01/19 Paty Farmer Hydrogeology ProfessorPhlebotomy Services Representative 12/07/23 documented as of this encounter
--- OUTSIDE RECORDS SUMMARY | 2024-08-13 16:03 | XMS_ITS | Encounter Summary ---
Author Organization [employer] Address 75 [facility] 7t [place] [address] Care Team Providers Care Senior Warehouse Clerk Name Role Phone Siobhan Gregory MD Primary Care Provide r Reason for Referral * Consultation (STAT) - Closed Specialty Diagnoses / Procedures Referred By Rosalinda t Referred To Contact General Surgery Diagnoses Epidermal cyst Mulu Garrett DO [address] [place] [address] Phone: tel: fax: [facility] General Surgeons [address] [place] [address] [address] [place], [place] Phone: tel: fax: Referral ID Status Reason Start Date Expiration Date V isits Requested Visits Authorized [id number] Closed Specialty Services Required 07/19/2024 07/19/2025 12 12 Encounter Details Date Type Department Care Team (Late st Contact Info) Description 07/18/2024 Orders Only [facility] [address] [place] [address] Mulu Garrett DO [address] [place] [address] Epidermal cyst (Primary Dx) Social History Tobacco [...] Description 10/31/2024 2:45 PM EDT Office Visit [facility] [address] [place] [address] Siobhan Gregory MD [address] [place], [place] [phone] Scheduled Referrals Name Type Priority Associated Diagnoses [...] documented as of this encounter Care Teams Senior Warehouse Clerk Relationship Specialty Start Date End Date Siobhan Gregory MD [address] [place] [phone] PCP - General Family Medicine 01/01/19 Paty Farmer A[employer]is Operations SpecialistPre Billing Clinician 12/07/23 documented as of this encounter
--- OUTSIDE RECORDS SUMMARY | 2024-08-13 16:03 | XMS_ITS | Encounter Summary ---
Author Organization [employer] Address 75 [facility] 7t [place] [address] Care Team Providers Care Sugar Boiler Name Role Phone Siobhan Gregory MD Primary Care Provide r Reason for Visit * Reason Onset Date Comments Referral 07/18/2024 Encounter Details Date Type Department Care Team ([facility] st Contact Info) Description 07/18/2024 Telephone [facility] [address] [place], [place] [phone] Na Encarnacion RN [address] [place], [place] [phone] Referral Social History Tobacco Use Types Packs/Day [...] Please see below. Patient was referred to [facility] on 07/03/24 however the [...] to be seen with a surgeon at [facility] for this patient stated I am still waiting for the referral I haven't heard anything about it since my last visit there and this is getting painfully worse patient was informed by jingle writer message will be sent to team and triage. documented in this encounter Plan of Treatment Upcoming Encounters Date Type Department Care Team (Late st Contact Info) Description 10/31/2024 2:45 PM EDT Office Visit [facility] [address] [place] [phone] Siobhan Gregory MD [address] [place] [address] documented as of this encounter Visit Diagnoses Not on filedocumented in this encounter Additional Health Concerns Assessment Noted Time PHQ-9 Depression Total Score: 18 01/22/ 024 2:19 PM EDT documented as of this encounter Care Teams Sugar Boiler Relationship Specialty Start Date End Date Siobhan Gregory MD [address] [place] [address] PCP - General Family Medicine 01/01/19 Paty Farmer Simplex OperatorLsw 12/07/23 documented as of this encounter
--- OUTSIDE RECORDS SUMMARY | 2024-08-13 16:03 | XMS_ITS | Encounter Summary ---
Author Organization [employer] [facility] Address [address] [facility] 7t [place] [address] Care Team Providers Care Animal Care Supervisor Name Role Phone Siobhan Gregory MD Primary Care Provide r Reason for Visit * Reason Comments Med Refill Encounter Details Date Type Department Care Team (Late st Contact Info) Description 07/27/2022 Refill [facility] [address] [place] [address] [phone] Michelle Laboy MD [address] [place] [phone] Other specified hypothyroidism Social History Tobacco Use [...] Office Visit [facility] [address] [place] [phone] Siobhan Gregory MD [address] [place], [place] [phone] documented as of this encounter Visit Diagnoses Diagnosis Other specified hypothyroidism documented in this encounter Care Teams Animal Care Supervisor Relationship Specialty Start Date End Date Siobhan Gregory MD [address] [place] [address] [phone] PCP - General Family Medicine 01/01/19 Paty Farmer Vending SupervisorFlash Welder 12/07/23 documented as of this encounter
== END 2024-08-13 14:13 | disposition home or self-care (01) ==
LOC: HO.HGS 14:05
PROVIDERS: PCP Internal Medicine; Visit Provider Surgery
DX: L98.9 Disorder of the skin and subcutaneous tissue, unspecified (principal); M67.441 Ganglion, right hand
CPT/HCPCS: 99024

== ENCOUNTER → 2024-08-13 14:05 | Outpatient (BNVA) | payer MEDICAID, SELFPAY | PROVIDERS: PCP Internal Medicine; Visit Provider Surgery | DX: M67.441 Ganglion, right hand (principal); L98.9 Disorder of the skin and subcutaneous tissue, unspecified | CPT/HCPCS: 99212 ==

== ENCOUNTER 2024-12-15 14:21 | Emergency (ER) | payer MEDICAID, SELFPAY ==
[2024-12-15 14:28] VITALS: BP 144/78; PULSE 102; O2SAT 97
[2024-12-15 14:40] VITALS: BP 134/80; PULSE 105; RESP 16; TEMP 36.3; O2SAT 98
[2024-12-15 14:45] VITALS: BP 134/80; PULSE 101; RESP 18; TEMP 36.9; O2SAT 98; BMI 32.8
[2024-12-15 14:45] LABS: Glucose, Whole Blood 80 mg/dL (60-115)
[2024-12-15 15:06] VITALS: BP 146/79; PULSE 102; RESP 23; TEMP 36.8; O2SAT 92
[2024-12-15 15:13] LABS: Glucose, Whole Blood 66 mg/dL (60-115)
--- NOTE | 2024-12-15 15:29 | PC.NURSE ---
Pt adamant he does not want an IV at this time, pt educated on Insulin taken and large amount COMMERCIAL ELECTRICIAN and still declines. Pt is alert/oriented x 3 at this time. Given food. Awaits ED provider Changed to hospital attire and on surveillance system monitor
[2024-12-15 15:49] LABS: Glucose, Whole Blood 143 mg/dL (60-115)
--- NOTE | 2024-12-15 15:54 | ED.GENADULT ---
HPI - General Adult General Chief complaint: Recheck/Abnormal Lab/Rx Stated complaint: ALTERED,BS WAS HIGH/RESOLVED @ THIS TIME PER EMS Time Seen by Provider: 12/15/24 15:54 History of Present Illness ED Provider: Dede MCCOY narrative: The patient is a 64-year-old male with a type 1 diabetes who takes Humalog and Lantus. The patient had a high blood sugar this morning of 468. He took his usual morning dose of Lantus insulin, 35 units. He also gave himself 35 units of Humalog which is a much larger dose than he typically gives himself. He attributes his high blood sugar this morning to a lot of dental work that he had yesterday. His blood sugar was still elevated at around 12:30 and he gave himself an additional 5 units of Humalog. This afternoon his neighbor thought that he was acting strangely. Neighbor called EMS in his blood sugar was 105. Paramedics felt that the patient was not significantly altered and brought him to the emergency room. The patient did not wish to have an IV placed. On arrival here the patient seemed to be alert and oriented and entirely appropriate. Here in the emergency room the patient did not wish to have any blood work done. He denies having had any chest pain or shortness of breath during this episode. He admits to a mild headache which he says is typical of headaches that he has had in the past. He denies any fever, sweats, chills. He has no oral pain currently. No neck pain. No nausea or vomiting. No abdominal pain. Related Data Home Medications ?Medication ?Instructions ?Recorded ?Confirmed clonazepam 0.5 mg tablet 0.25 mg PO BID 04/01/21 07/30/24 duloxetine 30 mg capsule,delayed 30 mg PO DAILY 04/01/21 07/30/24 release (Cymbalta) amlodipine 5 mg tablet 5 mg PO DAILY 11/06/21 07/30/24 aspirin 81 mg tablet,delayed 81 mg PO DAILY 11/06/21 07/30/24 release atorvastatin 40 mg tablet 40 mg PO BEDTIME 11/06/21 07/30/24 cyclobenzaprine 10 mg tablet 10 mg PO TID 11/06/21 07/30/24 famotidine 40 mg tablet 40 mg PO BEDTIME 11/06/21 07/30/24 insulin lispro 100 unit/mL subcut 11/06/21 07/30/24 subcutaneous solution insulin syringe-needle U-100 0.5 #10 ea 11/06/21 07/30/24 mL 31 gauge x 5/16 (BD Insulin Syringe Ultra-Fine) valsartan 80 mg tablet 80 mg PO DAILY 11/06/21 07/30/24 insulin glargine 100 unit/mL unit subcut 07/07/23 07/30/24 subcutaneous solution (Lantus U-100 Insulin) levothyroxine 112 mcg tablet 112 mcg PO QAM 07/07/23 07/30/24 losartan 100 mg tablet 100 mg PO QAM 07/07/23 07/30/24 Previous Rx's ?Medication ?Instructions ?Recorded meloxicam 15 mg tablet 15 mg PO DAILY #30 tabs 12/03/24 Allergies Allergy/AdvReac Type Severity Reaction Status Date / Time No Known Allergies (No Known Allergy Verified 12/15/24 14:53 Allergies*) Review of Systems Review of Systems: Yes all other systems are reviewed and are negative [facility] Past Medical History Medical History (Updated 12/15/24 @ 16:41 by Paresh Aguayo MD) Diabetes type I Hypercholesterolemia Hypothyroidism Surgical History (Updated 08/10/24 @ 09:19 by LEI Engel) Hx of surgical procedure (07/30/24) H/O elbow surgery Family History Family History Mother Pelvic cancer Father Diabetes Paternal Aunt Diabetes Social History Social History Alcohol intake: never Patient Tobacco Use Status: Never used Tobacco Smoked in Last 30 Days: No Use of substances other than those prescribed or required for medical reasons: No Advance Directives: No Advance Directives Information Provided: Yes Current occupational status: disabled Current occupation: lt hand Physical Exam ED Vital Signs: Vital Signs - 24 hr 12/15/24 14:40 12/15/24 14:45 12/15/24 15:06 Temperature 97.3 F 98.4 F 98.3 F Pulse Rate 105 H 101 H 102 H Respiratory Rate 16 18 23 H Blood Pressure 134/80 134/80 146/79 H Pulse Oximetry 98 98 92 Oxygen Delivery Method Room Air Room Air Room Air 07/12/25 16:42 12/15/24 16:56 Temperature 97.8 F 97.8 F Pulse Rate 107 H 103 H Respiratory Rate 16 26 H Blood Pressure 141/76 H 147/78 H Pulse Oximetry 98 98 Oxygen Delivery Method Room Air Room Air BMI result Body Mass Index 32.8 Const Other: The patient is awake, alert, pleasant, cooperative. He does not appear acutely ill. He is cheerful and in no distress. Orientation/consciousness: patient oriented x3 HENFL Other: Face is symmetrical. Mucous membranes moist. Pharynx is unremarkable. Eyes General: appearance normal, both eyes and all related structures Alignment and Position: alignment normal Conjunctivae: conjunctivae normal Sclerae: sclerae normal Pupils: Equal, round and reactive pupils present EOM: EOMs intact bilaterally Neck Neck: Yes normal visual inspection, Yes full ROM and Yes no lymphadenopathy Resp Effort & Inspection: normal respiratory effort Auscultation: clear to auscultation bilaterally Cardio Rate: regular rate Rhythm: regular rhythm Heart sounds: S1 normal heart sound present and S2 normal heart sound present GI Other: Abdomen is soft and nontender Skin Other: The skin is dry and unremarkable Neuro General: patient oriented x3, gait normal, tone normal, moves all extremities, no focal motor deficits and CN's II-XI intact bilaterally Cranial nerves: Yes Equal, round and reactive pupils present Extrem Other: There is no calf swelling or tenderness. No asymmetry. No peripheral edema. Medical Decision Making Medical Decision Making [facility] Narrative: The patient is a 64-year-old male who I believe is a type 1 diabetic. He says he has been a diabetic since the age of 15. He was brought to the hospital by ambulance because his neighbor was concerned about his mental status. On arrival here the patient had a normal mental status. The patient attributes any changes in his behavior earlier to the fact that his blood sugar was very high this morning. He had attributes his high blood sugars he dental work he had yesterday. He would not allow placement of an IV or any phlebotomy although he would allow fingerstick blood sugar testing. He has a an unremarkable EKG. He has had no chest pain. No fever, sweats, chills. Clinically he looks very well. He was observed for several hours. He ate food and does not seem to be at risk of significant hypoglycemia at this point I think. I told him that I would like to do blood work to investigate him further has a he has not had any blood work done recently. He does not wish to have this done. He feels that he is back to normal. He admits to having had a bit of a headache earlier but he is not concerned about the headache. His neighbor, the person who called the ambulance, says that the patient is back to his baseline. The patient agrees that if he feels worse he will return to the emergency room but he very positively wishes to be discharged with no further testing. He should follow up with his regular doctor to discuss this episode further. Lab Data Labs: Lab Results 12/15/24 12/15/24 12/15/24 Range/Units 14:38 15:09 15:44 POC Glucose 80 66 143 H (60-115) mg/dL Urine Color Urine Appearance Urine pH (5.0-9.0) Ur Specific Kimberly (1.005-1.025) Urine Protein (Neg-Trace) mg/dL Urine Glucose (UA) (Negative) mg/dL Urine Ketones (Negative) mg/dL Urine Blood (Negative) Urine Nitrite (Negative) Ur Leukocyte Esterase (Negative) Urine RBC (0-2) /HPF Urine WBC (0-5) /HPF Ur Squamous Epith Cells (0-2) /HPF Urine Bacteria (None Seen) Hyaline Casts (0-2) /LPF 12/15/24 12/15/24 Range/Units 16:02 16:51 POC Glucose 250 H (60-115) mg/dL Urine Color Yellow Urine Appearance Clear Urine pH 7.5 (5.0-9.0) Ur Specific Kimberly 1.015 (1.005-1.025) Urine Protein Negative (Neg-Trace) mg/dL Urine Glucose (UA) 250 H (Negative) mg/dL Urine Ketones Negative (Negative) mg/dL Urine Blood Negative (Negative) Urine Nitrite Negative (Negative) Ur Leukocyte Esterase Negative (Negative) Urine RBC 0-2 (0-2) /HPF Urine WBC 0-5 (0-5) /HPF Ur Squamous Epith Cells 0-2 (0-2) /HPF Urine Bacteria None Seen (None Seen) Hyaline Casts 0-2 (0-2) /LPF Independent Interpretation I performed an independent interpretation of an: EKG Interpretation: EKG at 16:23 shows sinus tachycardia at 104 beats per minute. No significant change from previous. Discharge Plan Discharge Clinical Impression: Acute alteration in mental status Patient Disposition: Home, Self-Care Additional Instructions: Please resume your normal diabetic care today. Please contact your regular doctor on Tuesday morning for a follow up appointment to discuss this episode further. If at any point you feel significantly worse please return to the emergency room for additional evaluation. Prescriptions: No Action meloxicam 15 mg tablet 15 mg PO DAILY Qty: 30 0RF duloxetine [Cymbalta] 30 mg capsule,delayed release(DR/EC) 30 mg PO DAILY clonazepam 0.5 mg tablet 0.25 mg PO BID atorvastatin 40 mg tablet 40 mg PO BEDTIME aspirin 81 mg tablet,delayed release (DR/EC) 81 mg PO DAILY (DME) insulin syringe-needle U-100 [BD Insulin Syringe Ultra-Fine] 0.5 mL 31 gauge x 5/16 syringe See Rx Instructions .ROUTE QID Qty: 10 Rx Instructions: As directed cyclobenzaprine 10 mg tablet 10 mg PO TID valsartan 80 mg tablet 80 mg PO DAILY famotidine 40 mg tablet 40 mg PO BEDTIME insulin lispro 100 unit/mL solution subcut amlodipine 5 mg tablet 5 mg PO DAILY insulin glargine [Lantus U-100 Insulin] 100 unit/mL solution subcut losartan 100 mg tablet 100 mg PO QAM levothyroxine 112 mcg tablet 112 mcg PO QAM Referrals: Siobhan Gregory MD [Primary Care Provider, Internal Medicine] Interventions: ED Discharge Assessment Last Done: 12/15/24 16:56 Discharge Date/Time: 12/15/24 16:57 Print Language: Mozambican
--- NOTE | 2024-12-15 16:08 | ECG_ITS ---
Test Reason : AMS Blood Pressure : */* mmHG Vent. Rate : 104 BPM Atrial Rate : 104 BPM P-R Int : 116 ms QRS Dur : 80 ms QT Int : 358 ms P-R-T Axes : 37 -30 17 degrees QTcB Int : 470 ms Sinus tachycardia Left axis deviation Minimal voltage criteria for LVH, may be normal variant ( R in aVL ) Abnormal ECG When compared with ECG of 27-Dec-2020 19:21, No significant change was found Referred By: Paresh Aguayo Electronically Signed By: Amor Huynh
[2024-12-15 16:10] LABS: Appearance Urine Clear; Glucose Urine UA 250 mg/dL (Negative); PH 7.5 (5.0-9.0); Specific Gravity - Urine 1.015 (1.005-1.025)
[2024-12-15 16:42] VITALS: BP 141/76; PULSE 107; RESP 16; TEMP 36.6; O2SAT 98
[2024-12-15 16:56] VITALS: BP 147/78; PULSE 103; RESP 26; TEMP 36.6; O2SAT 98
[2024-12-15 16:58] LABS: Glucose, Whole Blood 250 mg/dL (60-115)
== END 2024-12-15 16:57 | disposition home or self-care (01) ==
PROVIDERS: Emergency Provider Emergency Medicine; PCP Internal Medicine
DX: R41.82 Altered mental status, unspecified (principal); E10.9 Type 1 diabetes mellitus without complications; E03.9 Hypothyroidism, unspecified; Z79.4 Long term (current) use of insulin; Z79.899 Other long term (current) drug therapy
CPT/HCPCS: 81001; 82947; 93005; 99283; 99284

== ENCOUNTER → 2024-12-15 16:08 | Outpatient (BNV) | payer MEDICAID, SELFPAY | PROVIDERS: Emergency Provider Emergency Medicine; PCP Internal Medicine; Visit Provider Internal Medicine Cardiovascular Disease | DX: I51.7 Cardiomegaly (principal); R00.0 Tachycardia, unspecified | CPT/HCPCS: 93010 ==

== ENCOUNTER 2025-03-28 15:51 | Outpatient (REF) | payer MEDICAID, SELFPAY ==
--- OUTSIDE RECORDS SUMMARY | 2025-03-28 15:15 | XMS_ITS | Encounter Summary ---
Author Organization [employer] Address [address] [facility] 7t [place] [address] Care Team Providers Care Medical Delivery Driver Name Role Phone Siobhan Gregory MD Primary Care Provide r Encounter Details Date Type Department Care Team ([facility] st Contact Info) Description 03/28/2025 3:15 PM EDT Office Visit [facility] [address] [place], [place] [phone] Siobhan Gregory MD [address] [place], [place] [phone] Type 1 diabetes mellitus with other specified complication (HCC); Benign hypertension; Other specified hypothyroidism; Primary hypertension; Chronic pain in right shoulder; Anxiety with depression; Primary insomnia Social History Tobacco Use Types Packs/Day Years [...] Sign Reading Time Taken Comments Blood Pressure 128/66 03/28/2025 3:22 PM EDT Pulse 101 03/28/2025 3:22 PM EDT Temperature 36.5 C (97.7 F) 03/28/2025 3:22 PM EDT Respiratory Rate 12 03/28/2025 3:22 PM EDT Oxygen Saturation 99% 03/28/2025 3:22 PM EDT Inhaled Oxygen Concentration - - Weight 73.3 kg (161 lb 9.6 oz) 03/28/2025 3:22 P M EDT Height 149.9 cm (4' 11 ) 03/28/2025 3:22 PM EDT Body Mass Index 32.64 03/28/2025 3:22 PM EDT documented in this encounter Progress Notes * Siobhan Corral MD - 03/28/2025 3:15 PM EDT SUBJECTIVE: Shilo Tran is a 65 y.o. year old male who presents for Chronic Disease Management . Shilo Tran, 65 years Diabetes Mellitus - Reports difficulty managing insulin supply, prefers having at least 3 bottles to avoid frequent pharmacy visits - Uses insulin regimen: 20 units in the morning fasting, 12 units before each meal - Sometimes uses 35 units of Lantus in the morning and 15 units at night; has tried adjusting doses - Reports morning blood glucose levels ranging from 300 to 400 mg/dL, states this does not work - Notes that increasing Lantus at night did not improve daytime glucose control, experienced higherdaytime glucose levels - Reports frequent blood glucose readings of 150 to 160 mg/dL despite adjustments - Uses syringes for insulin administration, not insulin pens - Expresses concern about pharmacy notifications and medication refills Social History Social History Narrative Not on file Problem List[1] Type 1 diabetes mellitus (HCC) Seizure disorder (CMS/HCC) (HCC) Pure hypercholesterolemia Multiple joint pain Mild epistaxis [...] pain Pruritus Chronic right-sided thoracic back pain Primary insomnia Dyspnea on exertion Anxiety with depression Family History[2] Review of Systems Constitutional: Negative. HENT: Negative. Respiratory: Negative. Cardiovascular: Negative. OBJECTIVE: Vitals: 03/28/25 1522 BP: 128/66 BP Location: Left arm Patient Position: Sitting BP Cuff Size: Adult Pulse: 101 Resp: 12 Temp: 97.7 ??F (36.5 ??C) TempSrc: Temporal SpO2: 99% Weight: 161 lb 9.6 oz (73.3 kg) Height: 4' 11 (1.499 m) Physical Exam Constitutional: Appearance: Normal appearance. Cardiovascular: Rate and Rhythm: Normal rate and regular rhythm. Heart sounds: Normal heart sounds. Pulmonary: Effort: Pulmonary effort is normal. Breath sounds: Normal breath sounds. Abdominal: General: Abdomen is flat. Palpations: Abdomen is soft. Musculoskeletal: Right lower leg: No edema. Left lower leg: No edema. Neurological: Mental Status: He is alert. Follow Up: No follow-ups on file. Medications Ordered Prior to Encounter[3] Problem List Items Addressed This Visit Type 1 diabetes mellitus (HCC) Relevant Medications losartan (Cozaar) 100 MG tablet aspirin (Aspirin Low Dose) 81 MG EC tablet atorvastatin (Lipitor) 40 MG tablet insulin glargine (Lantus) 100 UNIT/ML injection Insulin Lispro 100 UNIT/ML solution Other Relevant Orders POCT Glucose (Completed) POCT Hgb A1c (Completed) Lipid Panel, Standard Albumin, Random Urine W/Creatinine Comprehensive Metabolic Panel TSH W/Reflex to FT4 Primary hypertension Relevant Medications losartan (Cozaar) 100 MG tablet amLODIPine (Norvasc) 5 MG tablet Chronic pain in right shoulder Relevant Medications aspirin (Aspirin Low Dose) 81 MG EC tablet cyclobenzaprine (Flexeril) 10 MG tablet Anxiety with depression Relevant Medications DULoxetine (Cymbalta) [address] capsule melatonin 10 MG tablet Primary insomnia Relevant Medications DULoxetine (Cymbalta) [address] capsule melatonin 10 MG tablet Other Visit Diagnoses Benign hypertension Relevant Medications losartan (Cozaar) 100 MG tablet amLODIPine (Norvasc) 5 MG tablet Other specified hypothyroidism Relevant Medications levothyroxine (Synthroid, Levoxyl) 112 MCG tablet aspirin (Aspirin Low Dose) 81 MG EC tablet atorvastatin (Lipitor) 40 MG tablet Type 1 diabetes mellitus with other specified complication (HCC): - Type 1 diabetes mellitus with suboptimal glycemic control. Insulin regimen discussed, including morning and evening doses of Lantus and pre-meal rapid- acting insulin. Difficulty maintaining target glucose levels noted. - Adjusted insulin regimen to 16 units of rapid-acting insulin in the morning, with continued dosing before meals. Increased evening Lantus dose to 20 units. Advised to monitor blood glucose closely.Ordered laboratory tests for cholesterol and thyroid function. Recommended annual diabetic eye examand foot check. Discussed pharmacy coordination for insulin supply and refills. Benign hypertension: - Benign hypertension acknowledged. - Continue current antihypertensive regimen. No changes discussed. Other specified hypothyroidism: - Other specified hypothyroidism recognized. - Ordered laboratory tests to monitor thyroid function. Continue current levothyroxine therapy. Primary hypertension: - Primary hypertension noted. - Continue current antihypertensive therapy. No adjustments made. Chronic pain in right shoulder: - Chronic pain in right shoulder mentioned. - No new interventions or changes discussed. Anxiety with depression: - Anxiety with depression referenced. - Continue current medications. No changes or new recommendations discussed. Primary insomnia: - Primary insomnia addressed. - Continue melatonin for sleep. No new interventions discussed. This note was drafted using Ambient (AI) technology. The patient/patient's guardian has been informed and has consented to the use of this technology: Yes [1] Patient Active Problem List Diagnosis Type 1 diabetes mellitus (HCC) Seizure disorder (CMS/HCC) (HCC) Pure hypercholesterolemia Multiple joint pain Mild epistaxis [...] pain Pruritus Chronic right-sided thoracic back pain Primary insomnia Dyspnea on exertion Anxiety with depression [2] No family history on file. [3] Current Outpatient Medications on File Prior to Visit Medication Sig Dispense Refill Acetaminophen Extra Strength 500 MG tablet TAKE 2 TABLETS BY MOUTH EVERY 8 HOURS NEEDED (TAKE 2 TABLETS EVERY 8 HOURS FOR PAIN ONLY) 30 tablet 0 Blood Pressure Monitoring (Blood Pressure Cuff) misc 1 each Once daily. 1 each 0 famotidine (Pepcid) 40 MG tablet TAKE 1 TABLET BY MOUTH EVERYDAY AT BEDTIME 90 tablet 1 glucose blood (FREESTYLE LITE) test strip USE TO TEST BLOOD SUGAR UP TO 7 TIMES A DAY 200 strip 11 hydrOXYzine HCl (Atarax) 25 MG tablet Take 1 tablet (25 mg) by mouth every 12 (twelve) hours if needed for itching. 60 tablet 2 insulin glargine (Lantus SoloStar) 100 UNIT/ML pen INJECT 35 UNITS SUBCUTANEOUSLY IN THE MORNING AND 15 UITS IN THE EVENING 15 mL 11 Insulin Pen Needle (pen needle 5/16 ) 31G X 8 mm misc Use with lantus insulin pens BID 100 each 11 insulin syringe-needle U-100 (BD Insulin Syringe U/F) 31G X 5/16 0.5 mL misc USE DIRECTED 4 TIMES DAILY 100 each 3 [DISCONTINUED] amLODIPine (Norvasc) 5 MG tablet Take 1 tablet (5 mg) by mouth Once per day. 30 tablet 11 [DISCONTINUED] aspirin (Aspirin Low Dose) 81 MG EC tablet TAKE 1 TABLET BY MOUTH EVERY DAY 90 tablet 1 [DISCONTINUED] atorvastatin (Lipitor) 40 MG tablet TAKE 1 TABLET BY MOUTH AT BEDTIME 90 tablet 1 [DISCONTINUED] cyclobenzaprine (Flexeril) 10 MG tablet TAKE 1 TABLET BY MOUTH IF NEEDED IN THE MORNING, AT NOON, AND AT BEDTIME FOR MUSCLE SPASMS (TAKE ONE TABLET ONLY IF PAIN). 30 tablet 0 [DISCONTINUED] DULoxetine (Cymbalta) [address] capsule Take 1 capsule (30 mg) by mouth Once per day.Do not crush or chew. 30 capsule 2 [DISCONTINUED] insulin glargine (Lantus) 100 UNIT/ML injection INJECT 35 UNITS SUBCUTANEOUSLY IN THE MORNING AND 15 UITS IN THE EVENING 30 mL 3 [DISCONTINUED] Insulin Lispro 100 UNIT/ML solution Inject 0.12 mL (12 Units) under the skin before breakfast, before lunch, and before evening meal. 60 mL 3 [DISCONTINUED] levothyroxine (Synthroid, Levoxyl) 112 MCG tablet Take 1 tablet (112 mcg) by mouth before breakfast. 90 tablet 0 [DISCONTINUED] losartan (Cozaar) 100 MG tablet Take 1 tablet (100 mg) by mouth in the morning. 90 tablet 1 [DISCONTINUED] melatonin 10 MG tablet Take 1 tablet (10 mg) by mouth at bedtime. 90 tablet 1 No current facility-administered medications on file prior to visit. documented in this encounter Plan of Treatment Scheduled Orders Name Type Priority Associated Diagnoses Orde r Schedule Albumin, Random Urine W/Creatinine Lab Routine Type 1 diabetes mellitus with other specified complication (HCC) Expected: 03/28/2025 (Approximate), Expires: 03/28/2026 Comprehensive Metabolic Panel Lab Routine Type 1 diabetes mellitus with other specified complication (HCC) Expected: 03/28/2025 (Approximate), Expires: 03/28/2026 documented as of this encounter Procedures Procedure Name Priority Date/Time Associated Diagnosis Comments TSH W/REFLEX TO FT4 Routine 03/28/2025 3:55 PM EDT Type 1 diabetes mellitus with other specified complication (HCC) LIPID PANEL, STANDARD Routine 03/28/2025 3:55 PM EDT Type 1 diabetes mellitus with other specified complication (HCC) POCT GLYCATED HEMOGLOBIN, TOTAL Routine 03/28/2025 3:23 PM EDT Type 1 diabetes mellitus with other specified complication (HCC) POCT GLUCOSE Routine 03/28/2025 3:23 PM EDT Type 1 diabetes mellitus with other specified complication (HCC) documented in this encounter Results * TSH W/Reflex to FT4 (03/28/2025 3:55 PM EDT) TSH reflex Free T4 1.14 0.32 - 4.0 uIU/mL [facility] Blood Venous blood specimen / Unknown 03/28/2025 3:55 PM EDT 03/28/2025 5:39 PM EDT us Siobhan Corral MD LAB BLOOD ORDERABLES Final Result Performing Organization Address [facility]/ZIP Co de Phone Number [facility] [address] [place] [phone] * (ABNORMAL) Lipid Panel, Standard (03/28/2025 3:55 PM EDT) Pathologist [facility] Triglycerides 108 <150 mg/dL [facility] Comment:Desirable Triglyceri de: less than 150 mg/dLBorderline High Triglyceride 150-199 mg/dLHigh Triglyceride: 200-499 mg/dLVery High Triglyceride: greater than or equal to 5OO mg/dL Cholesterol 165 <200 mg/dL [facility] Comment:Desirable Cholestero l: less than 200 mg/dLBorderline High Cholesterol: 200-239 mg/dLHigh Cholesterol: greater than 239 mg/dL LDL Cholesterol Calculated 100(H) <100 mg/dL [facility] Comment:Desirable LDL: less than 100 mg/dLNear Optimal/Above Optimal LDL: 110- 129 mg/dLBorderline High LDL: 130-159 mg/dLHigh LDL: 160-189 mg/dLVery High LDL: greater than or equal to 190 mg/dL HDL Cholesterol 44 >40 mg/dL [facility] Comment:Desirable HDL: great er than 40 mg/dL Note: This HDL assay may give artificially low results in patients with liver disease. Blood Venous blood specimen / Unknown 03/28/2025 3:55 PM EDT 03/28/2025 5:39 PM EDT us Siobhan Corral MD LAB BLOOD ORDERABLES Final Result Performing Organization Address City/[facility]/ZIP Co de Phone Number [facility] [address] [place] [phone] * (ABNORMAL) POCT Hgb A1c (03/28/2025 3:23 PM EDT) Hemoglobin A1C 6.2(A) 4.0 - 5.7 % QC Media Lot # [id number] Lot# Expiration Date 51,227 Blood 03/28/2025 3:23 PM EDT Siobhan Corral MD POINT OF CARE TEST EN TER/EDIT ORDERABLES Final Result * POCT Glucose (03/28/2025 3:23 PM EDT) Glucose Blood, POC 122 60 - 200 mg/dL QC Media Lot # [id number] Lot# Expiration Date 31,126 Blood Capillary blood specimen / Unknown 03/28/2025 3:23 PM EDT Siobhan Corral MD POINT OF CARE TEST EN TER/EDIT ORDERABLES Final Result documented in this encounter Visit Diagnoses Diagnosis Type 1 diabetes mellitus with other specified complication (HCC) Benign hypertension Essential hypertension, benign Other specified hypothyroidism Primary hypertension Unspecified essential hypertension Chronic pain in right shoulder Pain in joint, shoulder region Anxiety with depression Primary insomnia Persistent disorder of initiating or maintaining sleep documented in this encounter Additional Health Concerns Assessment Noted Time PHQ-9 Depression Total Score: 0 08/01/19 25 2:15 PM EST documented as of this encounter Care Teams Medical Delivery Driver Relationship Specialty Start Date End Date Siobhan Gregory MD [address] [place] [phone] PCP - General Family Medicine 01/01/19 Paty Farmer Airport ElectricianNetwork Design Architect 12/07/23 documented as of this encounter
[2025-03-28 18:40] LABS: Alanine Aminotransferase 29 U/L (0-40); Albumin Level 4.3 g/dL (3.5-5.0); Alkaline Phosphatase 120 U/L (39-117); Anion Gap 11 (12-20); Aspartate Amino Transferase 22 U/L (5-37); Blood Urea Nitrogen 14 mg/dL (9-16); Calcium 9.2 mg/dL (8.4-10.2); Carbon Dioxide 26 mmol/L (22-29); Chloride 111 mmol/L (96-108); Cholesterol 165 mg/dL (<200); Estimated Glomerular Filt Rate > 60; HDL Cholesterol 44 mg/dL (>40); Potassium 4.0 mmol/L (3.3-5.1); Sodium 144 mmol/L (135-145); Total Protein 7.1 g/dL (6.5-8.0); Triglycerides 108 mg/dL (<150)
[2025-03-28 18:42] LABS: Microalbum/Creatinine Ratio Ur 5.1 ug/mg cr (<30)
--- OUTSIDE RECORDS SUMMARY | 2025-03-28 19:18 | XMS_ITS | Encounter Summary ---
Author Organization [employer] Address [address] [facility] 7t [place] [address] Care Team Providers Care Technical Advisor Name Role Phone Siobhan Gregory MD Primary Care Provide r Encounter Details Date Type Department Care Team ([facility] st Contact Info) Description 06/07/2023 Orders Only [facility] [address] [place] [address] Mulu Lewis LPN Social History Tobacco Use Types Packs/Day Years Used Date Smoking Tobacco: Never Passive Smoke Exposure: Never Smokeless Tobacco: Never Depression Answer Date Recorded Patient Health Questionnaire-9 Score 20 12/06/2022 Housing Stability Answer Date Recorded What is your housing situation today? I have viniciusarline wilkes 04/08/[address] you [...] as of this encounter Plan of Treatment Not on file documented as of this encounter Visit Diagnoses Not on filedocumented in this encounter Additional Health Concerns Assessment Noted Time PHQ-9 Depression Total Score: 20 023 10:41 AM EDT documented as of this encounter Care Teams Technical Advisor Relationship Specialty Start Date End Date Siobhan Gregory MD [address] [place] [address] PCP - General Family Medicine 01/01/19 Paty Farmer Recruiting Operations ConsultantGeographic Information System Analyst 12/07/23 documented as of this encounter
--- OUTSIDE RECORDS SUMMARY | 2025-03-28 19:18 | XMS_ITS | Encounter Summary ---
Author Organization [employer] Address [address] [facility] 7t [place] [address] Care Team Providers Care Leno Sewer Name Role Phone Siobhan Gregory MD Primary Care Provide r Reason for Visit * Reason Comments Med Refill Encounter Details Date Type Department Care Team (Late st Contact Info) Description 06/07/2023 Refill [facility] [address] [place], [place] [phone] Christy Long FNP [address] [place], [place] [phone] Social History Tobacco Use Types Packs/Day Years [...] documented as of this encounter Care Teams Leno Sewer Relationship Specialty Start Date End Date Siobhan Gregory MD [address] [place] [phone] PCP - General Family Medicine 01/01/19 Paty Farmer Limehouse WorkerProjector Booth Operator 12/07/23 documented as of this encounter
--- OUTSIDE RECORDS SUMMARY | 2025-03-28 19:18 | XMS_ITS | Encounter Summary ---
Author Organization [employer] Address [address] [facility] 7t [place] [address] Care Team Providers Care Button Sawyer Name Role Phone Siobhan Gregory MD Primary Care Provide r Reason for Visit * Reason Comments Med Refill Encounter Details Date Type Department Care Team ([facility] st Contact Info) Description 06/06/2023 Refill [facility] [address] [place], [place] [phone] Siobhan Gregory MD [address] [place], [place] [phone] Social History Tobacco Use Types Packs/Day Years [...] documented as of this encounter Care Teams Button Sawyer Relationship Specialty Start Date End Date Siobhan Gregory MD [address] [place] [address] PCP - General Family Medicine 01/01/19 Paty Farmer Ash CollectorNeonatal Doctor 12/07/23 documented as of this encounter
--- OUTSIDE RECORDS SUMMARY | 2025-03-28 19:19 | XMS_ITS | Encounter Summary ---
Author Organization [employer] Address [address] [facility] 7t [place] [address] Care Team Providers Care Industrial Spraypainter Name Role Phone Siobhan Gregory MD Primary Care Provide r Reason for Visit * Reason Comments Med Refill Encounter Details Date Type Department Care Team ([facility] st Contact Info) Description 12/09/2022 Refill [facility] [address] [place], [place] [phone] Siobhan Gregory MD [address] [place] [address] Type 1 diabetes mellitus with other specified [...] specified complication (HCC) documented in this encounter Additional Health Concerns Assessment Noted Time PHQ-9 Depression Total Score: 20 023 10:41 AM EDT documented as of this encounter Care Teams Industrial Spraypainter Relationship Specialty Start Date End Date Siobhan Gregory MD [address] [place] [address] PCP - General Family Medicine 01/01/19 Paty Farmer Chain HookerManager Leasing 12/07/23 documented as of this encounter
--- OUTSIDE RECORDS SUMMARY | 2025-03-28 19:19 | XMS_ITS | Encounter Summary ---
Author Organization [employer] Address [address] [facility] 7t [place] [address] Care Team Providers Care Deputy Coroner Investigator Name Role Phone Siobhan Gregory MD Primary Care Provide r Reason for Visit * Reason Comments Med Refill Encounter Details Date Type Department Care Team (Late st Contact Info) Description 07/27/2022 Refill [facility] [address] [place], [place] [phone] Michelle Laboy MD [address] [place] [address] Other specified hypothyroidism Social History Tobacco Use [...] hypothyroidism documented in this encounter Care Teams Deputy Coroner Investigator Relationship Specialty Start Date End Date Siobhan Gregory MD [address] [place], [place] [phone] PCP - General Family Medicine 01/01/19 Paty Farmer Horse Racetrack ManagerCustomer Service Supervisor 12/07/23 documented as of this encounter
--- OUTSIDE RECORDS SUMMARY | 2025-03-28 19:19 | XMS_ITS | Encounter Summary ---
Author Organization [employer] Address [address] [facility] 7t [place] [address] Care Team Providers Care Bonbon Cream Warmer Name Role Phone Siobhan Gregory MD Primary Care Provide r Reason for Visit * Reason Comments Med Refill Encounter Details Date Type Department Care Team ([facility] st Contact Info) Description 10/16/2024 Refill [facility] MED[facility]INE [address] [place], [place] [phone] Siobhan Gregory MD [address] [place], [place] [phone] Type 1 diabetes mellitus with other specified complication (CMS/HCC); Primary hypertension Social History Tobacco Use Types Packs/Day [...] diabetes mellitus with other specified complication (HCC) Primary hypertension Unspecified essential hypertension documented in this encounter Additional Health Concerns Assessment Noted Time PHQ-9 Depression Total Score: 0 08/01/19 25 2:15 PM EST documented as of this encounter Care Teams Bonbon Cream Warmer Relationship Specialty Start Date End Date Siobhan Gregory MD [address] [place] [address] PCP - General Family Medicine 01/01/19 Paty Farmer Ampoule InspectorDecorative Cutting Machine Tender 12/07/23 documented as of this encounter
--- OUTSIDE RECORDS SUMMARY | 2025-03-28 19:19 | XMS_ITS | Encounter Summary ---
Author Organization [employer] Address 75 [facility] 7t [place] [address] Care Team Providers Care Bone Tender Name Role Phone Siobhan Gregory MD Primary Care Provide r Reason for Visit * Reason Comments Med Refill Encounter Details Date Type Department Care Team (Late st Contact Info) Description 09/08/2022 Refill [facility] [address] [place] [phone] Chelsie Covarrubias ANP [address] [place] [address] Muscle spasm Social History Tobacco Use Types [...] muscle documented in this encounter Care Teams Bone Tender Relationship Specialty Start Date End Date Siobhan Gregory MD [address] [place] [phone] PCP - General Family Medicine 01/01/19 Paty Farmer Solutions ConsultantPrison Guard Supervisor 12/07/23 documented as of this encounter
--- OUTSIDE RECORDS SUMMARY | 2025-03-28 19:19 | XMS_ITS | Encounter Summary ---
Author Organization [employer] Address [address] [facility] 7t [place] [address] Care Team Providers Care File Clerk Data Entry Name Role Phone Siobhan Gregory MD Primary Care Provide r Encounter Details Date Type Department Care Team (Late st Contact Info) Description 10/25/2022 Orders Only [facility] [address] [place] [address] Chata Bear LPN Social History Tobacco Use [...] on filedocumented in this encounter Care Teams File Clerk Data Entry Relationship Specialty Start Date End Date Siobhan Gregory MD [address] [place] [address] PCP - General Family Medicine 01/01/19 Paty Farmer Architectural Design LecturerSales Program Coordinator 12/07/23 documented as of this encounter
--- OUTSIDE RECORDS SUMMARY | 2025-03-28 19:19 | XMS_ITS | Encounter Summary ---
Author Organization [employer] Address 75 [facility] 7t [place] [address] Care Team Providers Care Pencil Inspector Name Role Phone Siobhan Gregory MD Primary Care Provide r Reason for Visit * Reason Onset Date Comments chart prep 03/27/2025 Encounter Details Date Type Department Care Team ([facility] st Contact Info) Description 03/27/2025 Telephone [facility] MED[facility]INE [address] [place], [place] [phone] Siobhan Gregory MD [address] [place], [place] [phone] chart prep Social History Tobacco Use Types Packs/Day Years [...] encounter Miscellaneous Notes * Telephone Encounter - Ron Godinez [place] - 03/27/2025 2:39 PM EDT Chart Prep Labs: not applicable Images: done Referrals: appointment pending Scheduled 04/05/25 at 4:00 PM. Vaccines due: not applicable Screenings: colonoscopy, eye exam, and foot exam Overdue care gaps: Not applicable documented in this encounter Plan of Treatment Not on file documented as of this encounter Visit Diagnoses Not on filedocumented in this encounter Additional Health Concerns Assessment Noted Time PHQ-9 Depression Total Score: 0 08/01/19 25 2:15 PM EST documented as of this encounter Care Teams Pencil Inspector Relationship Specialty Start Date End Date Siobhan Gregory MD [address] [place] [phone] PCP - General Family Medicine 01/01/19 Paty Farmer School Bus MonitorMine Utility Operator 12/07/23 documented as of this encounter
--- OUTSIDE RECORDS SUMMARY | 2025-03-28 19:19 | XMS_ITS | Encounter Summary ---
Author Organization [employer] Address [address] [facility] 7t [place] [address] Care Team Providers Care Bath Attendant Name Role Phone Siobhan Gregory MD Primary Care Provide r Reason for Visit * Reason Comments Med Refill Encounter Details Date Type Department Care Team ([facility] st Contact Info) Description 03/25/2025 Refill [facility] MED[facility]INE 230 [place], [place] [phone] Janette Arce MD 230 [place], [place] [phone] Other specified hypothyroidism Social History Tobacco Use [...] Other specified hypothyroidism documented in this encounter Additional Health Concerns Assessment Noted Time PHQ-9 Depression Total Score: 0 08/01/19 25 2:15 PM EST documented as of this encounter Care Teams Bath Attendant Relationship Specialty Start Date End Date Siobhan Gregory MD [address] [place] [phone] PCP - General Family Medicine 01/01/19 Paty Farmer Welt RougherGround School Instructor 12/07/23 documented as of this encounter
--- OUTSIDE RECORDS SUMMARY | 2025-03-28 19:19 | XMS_ITS | Encounter Summary ---
Author Organization [employer] Address [address] [facility] 7t [place] [address] Care Team Providers Care Field Collector Name Role Phone Siobhan Gregory MD Primary Care Provide r Encounter Details Date Type Department Care Team (Latest Contact Info) Description 03/28/2025 Travel Social History Tobacco Use Types Packs/Day [...] documented as of this encounter Care Teams Field Collector Relationship Specialty Start Date End Date Siobhan Gregory MD [address] [place] [phone] PCP - General Family Medicine 01/01/19 Payt Farmer Business Analyst InternFox Raiser 12/07/23 documented as of this encounter
--- OUTSIDE RECORDS SUMMARY | 2025-03-28 19:19 | XMS_ITS | Encounter Summary ---
Author Organization [facility] Address [address] [facility] 7t [place] [address] Care Team Providers Care House Father Name Role Phone Siobhan Gregory MD Primary Care Provide r Reason for Visit * Reason Comments Med Refill Encounter Details Date Type Department Care Team ([facility] st Contact Info) Description 01/16/2025 Refill [facility] [address] [place], [place] [phone] Siobhan Gregory MD [address] [place], [place] [phone] Primary hypertension Social History Tobacco Use Types [...] as of this encounter Visit Diagnoses Diagnosis Primary hypertension Unspecified essential hypertension documented in this encounter Additional Health Concerns Assessment Noted Time PHQ-9 Depression Total Score: 0 08/01/19 25 2:15 PM EST documented as of this encounter Care Teams House Father Relationship Specialty Start Date End Date Siobhan Gregory MD [address] [place] [phone] PCP - General Family Medicine 01/01/19 Paty Farmer Assistant Plant ManagerSensitizer 12/07/23 documented as of this encounter
--- OUTSIDE RECORDS SUMMARY | 2025-03-28 19:19 | XMS_ITS | Clinical Summary ---
Author Organization [employer] Address [address] [facility] 7t [place] [address] Care Team Providers Care [employer] Teacher Name Role Phone Siobhan Gregory MD Primary Care Provide r Allergies Active Allergy Reactions Criticality Noted Date Comments Joni Inhibitors Cough 01/05/2013 Simvastatin 06/02/2010 Other reaction(s): increased LFTs Medications Blood Pressure Monitoring (Blood Pressure Cuff) miscIndications: Primary hypertension 1 each Once daily. 1 each 024 Active Acetaminophen Extra Strength 500 MG tabletIndication s:Acute pain of right shoulder TAKE 2 TABLETS BY MOUTH EVERY 8 HOURS NEEDED (TAKE 2 TABLETS EVERY 8 HOURS FOR PAIN ONLY) 30 tablet 025 Active famotidine (Pepcid) 40 MG tabletIndication s:Heartburn TAKE 1 TABLET BY MOUTH EVERYDAY AT BEDTIME 90 tablet 1 025 Active glucose blood (FREESTYLE LITE) test stripIndications :Type 1 diabetes mellitus with other specified complication (HCC) USE TO TEST BLOOD SUGAR UP TO 7 TIMES A DAY 200 strip 11 025 Active hydrOXYzine HCl (Atarax) 25 MG tabletIndication s:Anxiety with depression Take 1 tablet (25 mg) by mouth every 12 (twelve) hours if needed for itching. 60 tablet 2 025 Active insulin syringe-needle U-100 (BD Insulin Syringe U/F) 31G X 5/16 0.5 mL miscIndications: Type 1 diabetes mellitus with other specified complication (HCC) USE DIRECTED 4 TIMES DAILY 100 each 3 025 Active insulin glargine (Lantus SoloStar) 100 UNIT/ML pen INJECT 35 UNITS SUBCUTANEOUSLY IN THE MORNING AND 15 UITS IN THE EVENING 15 mL 11 Active Insulin Pen Needle (pen needle 10/19 ) 31G X 8 mm misc Use with lantus insulin pens BID 100 each 11 2025 Active losartan (Cozaar) 100 MG tabletIndication s:Benign hypertension Take 1 tablet (100 mg) by mouth in the morning. 90 tablet 1 Active levothyroxine (Synthroid, Levoxyl) 112 MCG tabletIndication s:Other specified hypothyroidism Take 1 tablet (112 mcg) by mouth before breakfast. 90 tablet Active amLODIPine (Norvasc) 5 MG tabletIndication s:Primary hypertension Take 1 tablet (5 mg) by mouth Once per day. 30 tablet 11 2025 Active aspirin (Aspirin Low Dose) 81 MG EC tabletIndication s:Type 1 diabetes mellitus with other specified complication (HCC) TAKE 1 TABLET BY MOUTH EVERY DAY 90 tablet 1 Active atorvastatin (Lipitor) 40 MG tabletIndication s:Type 1 diabetes mellitus with other specified complication (HCC) TAKE 1 TABLET BY MOUTH AT BEDTIME 90 tablet 1 Active cyclobenzaprine (Flexeril) 10 MG tabletIndication s:Chronic pain in right shoulder Take 1 tablet by mouth if needed in the morning, at noon, and at bedtime for muscle spasms (take one tablet only if pain). 30 tablet Active DULoxetine (Cymbalta) [address] capsuleIndicatio ns:Anxiety with depression Take 1 capsule (30 mg) by mouth Once per day. Do not crush or chew. 30 capsule 2 025 2025 Active melatonin 10 MG tabletIndication s:Primary insomnia Take 1 tablet (10 mg) by mouth at bedtime. 90 tablet 1 Active insulin glargine (Lantus) 100 UNIT/ML injectionIndicat ions:Type 1 diabetes mellitus with other specified complication (HCC) INJECT 35 UNITS SUBCUTANEOUSLY IN THE MORNING AND 20 UITS IN THE EVENING 40 mL 3 Active Insulin Lispro 100 UNIT/ML solutionIndicati ons:Type 1 diabetes mellitus with other specified complication (HCC) Inject 0.16 mL (16 Units) as directed with breakfast, with lunch, and with evening meal. 10 mL 2 Active melatonin 10 MG tabletIndication s:Primary insomnia Take 1 tablet (10 mg) by mouth at bedtime. 90 tablet 1 2024 Discontinued(R eorder (will not trigger notification to Pharmacy)) cyclobenzaprine (Flexeril) 10 MG tabletIndication s:Chronic pain in right shoulder TAKE 1 TABLET BY MOUTH IF NEEDED IN THE MORNING, AT NOON, AND AT BEDTIME FOR MUSCLE SPASMS (TAKE ONE TABLET ONLY IF PAIN). 30 tablet 2024 Discontinued(R eorder (will not trigger notification to Pharmacy)) insulin glargine (Lantus) 100 UNIT/ML injectionIndicat ions:Type 1 diabetes mellitus with other specified complication (HCC) INJECT 35 UNITS SUBCUTANEOUSLY IN THE MORNING AND 15 UITS IN THE EVENING 30 mL 3 2024 Discontinued Insulin Lispro 100 UNIT/ML solutionIndicati ons:Type 1 diabetes mellitus with other specified complication (HCC) Inject 0.12 mL (12 Units) under the skin before breakfast, before lunch, and before evening meal. 60 mL 3 2024 Discontinued DULoxetine (Cymbalta) [address] capsuleIndicatio ns:Anxiety with depression Take 1 capsule (30 mg) by mouth Once per day. Do not crush or chew. 30 capsule 2 2024 Discontinued(R eorder (will not trigger notification to Pharmacy)) levothyroxine (Synthroid, Levoxyl) 112 MCG tabletIndication s:Other specified hypothyroidism Take 1 tablet (112 mcg) by mouth before breakfast. 90 tablet 2024 Discontinued(R eorder (will not trigger notification to Pharmacy)) losartan (Cozaar) 100 MG tabletIndication s:Benign hypertension Take 1 tablet (100 mg) by mouth in the morning. 90 tablet 1 025 2024 Discontinued(R eorder (will not trigger notification to Pharmacy)) atorvastatin (Lipitor) 40 MG tabletIndication s:Type 1 diabetes mellitus with other specified complication (HCC) TAKE 1 TABLET BY MOUTH AT BEDTIME 90 tablet 1 025 2024 Discontinued(R eorder (will not trigger notification to Pharmacy)) aspirin (Aspirin Low Dose) 81 MG EC tabletIndication s:Type 1 diabetes mellitus with other specified complication (HCC) TAKE 1 TABLET BY MOUTH EVERY DAY 90 tablet 1 025 2024 Discontinued(R eorder (will not trigger notification to Pharmacy)) amLODIPine (Norvasc) 5 MG tabletIndication s:Primary hypertension Take 1 tablet (5 mg) by mouth Once per day. 30 tablet 11 025 2024 Discontinued(R eorder (will not trigger notification to Pharmacy)) insulin glargine (Lantus) 100 UNIT/ML injectionIndicat ions:Type 1 diabetes mellitus with other specified complication (HCC) INJECT 35 UNITS SUBCUTANEOUSLY IN THE MORNING AND 20 UITS IN THE EVENING 40 mL 3 025 2024 Discontinued(R eorder (will not trigger notification to Pharmacy)) Insulin Lispro 100 UNIT/ML solutionIndicati ons:Type 1 diabetes mellitus with other specified complication (HCC) Inject 0.16 mL (16 Units) as directed with breakfast, with lunch, and with evening meal. 10 mL 2 2024 Discontinued(R eorder (will not trigger notification to Pharmacy)) Active Problems Problem Noted Date Diagnosed Date Dyspnea on exertion 01/10/2025 Anxiety with depression 01/10/2025 Assessment & Plan (01/10/2025 4:21 PM EDT): I will restart him on duloxetine 30 mg and hydroxyzine as needed (for the medications as he was receiving up to July 2024) Primary insomnia 10/31/2024 Chronic right-sided thoracic back pain Assessment & [...] 1 diabetes mellitus 10/25/2017 Assessment & Plan (01/10/2025 4:20 PM EDT): - Lab Results Component Value Date HGBA1C 5.4 10/31/2024 HGBA1C 5.8 08/01/2024 HGBA1C 5.4 04/24/2024 - Lab Results Component Value Date MICROALBUR <5.0 12/09/2023 CREATININE 0.80 12/09/2023 -Changes: Light of persistently high glucose readings and went up on Lantus to 35 units in the morning and 10 units at bedtime, and I went up on Humalog to 12 units with meals - Diabetic eye exam: Pending - Diabetic foot exam: Pending - Continue lifestyle modifications - Continue current medications - Follow up: 3 months Assessment & Plan (10/31/2024 4:43 PM EDT): Diabetes is: controlled - Lab Results Component Value Date HGBA1C 5.4 10/31/2024 HGBA1C 5.8 08/01/2024 HGBA1C 5.4 04/24/2024 - Lab Results Component Value Date MICROALBUR <5.0 12/09/2023 CREATININE 0.80 12/09/2023 -Changes: He is on Lantus 15 units at bedtime and on lispro 10 units with meals - Diabetic eye exam: Up-to-date - Diabetic foot exam: Pending - Continue lifestyle modifications - Continue current medications - Follow up: 3 months Assessment & Plan (08/01/2024 4:52 PM EST): [...] current medications - Hyperlipidemia 10/25/2017 Seizure disorder ([facility]) 10/25/2012 Assessment & Plan (01/10/2025 4:21 PM EDT): Patient denies any episodes of seizures he has remained stable continue with same interventions Multiple joint pain 11/22/2011 Assessment & Plan (04/08/2023 4:46 PM EDT): Patient reports is difficult for hm to do his activities at home I ask for him to request evaluation for more NATIONAL COVERAGE SPECIALIST hours Depressive disorder 11/22/2011 Primary hypertension 11/22/2011 Assessment & Plan (01/10/2025 4:19 PM EDT): I advised: - Aerobic exercise to reduce BP. Initial [...] consulting health care provider Assessment & Plan (10/31/2024 4:42 PM EDT): I advised: - Aerobic exercise to reduce BP. Initial [...] consulting health care provider Assessment & Plan (08/01/2024 4:53 PM EST): [...] Encounters Date Type Department Care Team Description 03/28/2025 3:15 PM EDT Office Visit [facility] [address] [place] [phone] Siobhan Gregory MD Type 1 diabetes mellitus with other specified complication (HCC); Benign hypertension; Other specified hypothyroidism; Primary hypertension; Chronic pain in right shoulder; Anxiety with depression; Primary insomnia 03/28/2025 Travel 03/27/2025 Telephone [facility] [address] [place] [phone] Siobhan Gregory MD chart prep 03/25/2025 Refill [facility] [address] [place] [phone] Janetet Arce MD Other specified hypothyroidism 03/21/2025 Patient Outreach [facility] [address] [place], [place] [phone] Siobhan Gregory MD Pre-visit Planning (SDOH was already completed ) 03/08/2025 Telephone [facility] [address] [place] [phone] Siobhan Gregory MD Medication Question; Call Back Request 01/16/2025 Refill [facility] [address] [place] [address] [phone] Siobhan Gregory MD Primary hypertension 01/11/2025 Refill [facility] [address] [place] [phone] Siobhan Gregory MD 01/10/2025 2:45 PM EDT Office Visit [facility] [address] [place] [phone] Siobhan Gregory MD Primary hypertension (Primary Dx); Type 1 diabetes mellitus with other specified complication (CMS/HCC); Seizure disorder (CMS/HCC); Dietary counseling; Exercise counseling; Dyspnea on exertion; Anxiety with depression; Other specified hypothyroidism; Benign hypertension 01/10/2025 Travel 01/09/2025 Telephone [facility] [address] [place] [phone] Siobhan Gregory MD chart prep 01/04/2025 Refill [facility] [address] [place] [phone] Siobhan Gregory MD Type 1 diabetes mellitus with other specified complication (CMS/HCC) 01/02/2025 Patient Outreach [facility] [address] [place] [phone] Siobhan Gregory MD Pre-visit Planning ([facility] screening completed on 07/18/2024) 12/28/2024 Telephone [facility] [address] [place] [phone] [facility] Last 3 Months Immunizations Immunization Administration Dates Next Due Influenza Injectable Quadriv [...] Mass Index 32.64 03/28/2025 3:22 PM EDT Plan of Treatment Health Maintenance Due Date Last Done Comments CT Colonography 1961 Colonoscopy 1961 FIT DNA/Cologuard 1961 FOBT 1961 Sigmoidoscopy 1961 Diabetes: Foot Exam 1971 Eye Exam 1971 RSV Patients and Patients Aged 60 years or older (1 - Risk 60-74 years 1-dose series) 2021 Colorectal Cancer Screening 07/21/2023 FIT 07/21/2023 07/21/2022 Diabetes: Urine Protein Screening 12/08/2024 03/28/2025, 12/09/2023, 11/03/2022 Lipid Panel 12/08/2024 03/28/2025, 07/0 10/2023, 11/03/2022, Additional history exists Alcohol/Substance Use Screening 04/24/2025 04/24/2024 SDOH Screening 07/18/2025 07/18/2024 Depression Screening 08/01/2025 08/01/2024, 08/01/19 25 Diabetes: Hemoglobin A1C 09/26/2025 025, 10/31/2024, 08/01/2024, Additional history exists Disability Screening 01/10/2026 01/10/2025 Tobacco Screening 03/28/2026 03/28/2025 DTaP/Tdap/Td Vaccines (3 - Td or Tdap) 03/03/2033 03/03/2023, 02/08/2023, 10/03/2008 Pneumococcal Vaccine: 50+ Years Completed 01/25/2023, 05/05/2005 Zoster Vaccines Completed 02/08/2023, 12/06/2022 HIV Screening Completed 12/09/2023 Hepatitis C Screening Completed 12/09/2023 COVID-19 Vaccine Completed 02/20/2025, 04/2024, 03/03/2023, Additional history exists Influenza Vaccine Completed 02/20/2025, , 01/25/2023, Additional history exists HIB Vaccines Aged Out [...] patient's age to complete this topic Meningococcal B Vaccine Aged Out No l onger eligible based on patient's age to complete [...] Comments TSH W/REFLEX TO FT4 Routine 03/28/2025 3 :55 PM EDT Type 1 diabetes mellitus with other specified complication (HCC) LIPID PANEL, STANDARD Routine 03/28/2025 3:55 PM EDT Type 1 diabetes mellitus with other specified complication (HCC) COMPREHENSIVE METABOLIC PANEL Routine 03/28/2025 3:55 PM EDT Type 1 diabetes mellitus with other specified complication (HCC) ALBUMIN, RANDOM URINE W/CREATININE Routine 03/28/2025 3:55 PM EDT Type 1 diabetes mellitus with other specified complication (HCC) POCT GLYCATED HEMOGLOBIN, TOTAL Routine 03/28/2025 3:23 PM EDT Type 1 diabetes mellitus with other specified complication (HCC) POCT GLUCOSE Routine 03/28/2025 3:23 PM EDT Type 1 diabetes mellitus with other specified complication (HCC) POCT GLUCOSE Routine 01/10/2025 2:43 PM EDT Type 1 diabetes mellitus with [...] Recently Relevant to Health Maintenance Results * TSH W/Reflex to FT4 (03/28/2025 3:55 PM EDT) TSH reflex Free T4 1.14 0.32 - 4.0 uIU/mL [facility] Blood Venous blood specimen / Unknown 03/28/2025 3:55 PM EDT 03/28/2025 5:39 PM EDT us Siobhan Corral MD LAB BLOOD ORDERABLES Final Result [facility] [address] [place] [phone] * Albumin, Random Urine W/Creatinine (03/28/2025 3:55 PM EDT) Creatinine, Urine 155.77 mg/dL [facility] Microalbumin Urine 8.0 mg/L [facility] Microalbum Creatinine Ratio Ur 5.1 <30 ug/mg cr [facility] Comment:Albumin/Creatinine R atio Reference Ranges: Normal: < 30 ug/mg creatinine Microalbuminuria: 30 - 300 ug/mg creatinineClinical Albuminuria: > 300 ug/mg creatinine Urine (Urine, Random) 03/28/2025 3:55 PM EDT 03/28/2025 6:06 PM EDT us Siobhan Corral MD LAB URINE ORDERABLES Final Result Performing Organization Address City/[facility]/ZIP Co de Phone Number [facility] [address] [place] [phone] [phone] * (ABNORMAL) Lipid Panel, Standard (03/28/2025 3:55 PM EDT) Triglycerides 108 <150 mg/dL [facility] Comment:Desirable Triglyceri de: less than 150 mg/dLBorderline High Triglyceride 150-199 mg/dLHigh Triglyceride: 200-499 mg/dLVery High Triglyceride: greater than or equal to 5OO mg/dL Cholesterol 165 <200 mg/dL [facility] Comment:Desirable Cholestero l: less than 200 mg/dLBorderline High Cholesterol: 200-239 mg/dLHigh Cholesterol: greater than 239 mg/dL LDL Cholesterol Calculated 100(H) <100 mg/dL [facility] Comment:Desirable LDL: less than 100 mg/dLNear Optimal/Above Optimal LDL: 110- 129 mg/dLBorderline High LDL: 130-159 mg/dLHigh LDL: 160-189 mg/dLVery High LDL: greater than or equal to 190 mg/dL HDL Cholesterol 44 >40 mg/dL [facility] Comment:Desirable HDL: great er than 40 mg/dL Note: This HDL assay may give artificially low results in patients with liver disease. Blood Venous blood specimen / Unknown 03/28/2025 3:55 PM EDT 03/28/2025 5:39 PM EDT us Siobhan Corral MD LAB BLOOD ORDERABLES Final Result Performing Organization Address City/[facility]/ZIP Co de Phone Number [facility] [address] [place] [phone] * (ABNORMAL) Comprehensive Metabolic Panel (03/28/2025 3:55 PM EDT) Sodium 144 135 - 145 mmol/L [facility] Potassium 4.0 3.3 - 5.1 mmol/L [facility] Chloride 111(H) 96 - 108 mmol/L [facility] Carbon Dioxide 26 22 - 29 mmol/L [facility] Anion Gap 11(L) 12 - 20 [facility] Urea Nitrogen (BUN) 14 9 - 16 mg/dL [facility] Creatinine, Serum 0.90 0.5 - 1.4 mg/dL [facility] Estimated Glomerular Filt Rate >60 [facility] Comment:Chronic Kidney Disea se: Estimated GFR < 60 mL/min/[id number] Kidney Disease: Estimated GFR < 15 mL/min/1.73m2 Glucose 88 60 - 115 mg/dL [facility] Calcium 9.2 8.4 - 10.2 mg/dL [facility] Bilirubin, Total 0.2 0.0 - 1.0 mg/dL [facility] Aspartate Amino Transferase 22 5 - 37 U/L [facility] Alanine Aminotransferase 29 0 - 40 U/L [facility] Total Protein 7.1 6.5 - 8.0 g/dL [facility] Albumin Level 4.3 3.5 - 5.0 g/dL [facility] Alkaline Phosphatase 120(H) 39 - 117 U/L [facility] Blood Venous blood specimen / Unknown 03/28/2025 3:55 PM EDT 03/28/2025 5:39 PM EDT us Siobhan Corral MD LAB BLOOD ORDERABLES Final Result [facility] [address] [place] [phone] * (ABNORMAL) POCT Hgb A1c (03/28/2025 3:23 PM EDT) Hemoglobin A1C 6.2(A) 4.0 - 5.7 % QC Media Lot # [id number] Lot# Expiration Date [id number] Blood 03/28/2025 3:23 PM EDT us Siobhan Corral MD POINT OF CARE TEST EN TER/EDIT ORDERABLES Final Result * POCT Glucose (03/28/2025 3:23 PM EDT) Only the most recent of2 resultswithin the time period is included. Pathologist [facility] Glucose Blood, POC 122 60 - 200 mg/dL QC Media Lot # [id number] Lot# Expiration Date 31,126 Blood Capillary blood specimen / Unknown 03/28/2025 3:23 PM EDT us Siobhan Corral MD POINT OF CARE TEST EN TER/EDIT ORDERABLES Final Result * Hepatitis C Viral RNA, Quantitative, Real-Time PCR (12/09/2023 3:49 PM EDT) [facility] Hepatitis C Viral Load <15 NOT DETECTED NOT DETECTED IU/mL [facility] HCV Log PCR <1.18 NOT DETECTED NOT DETECTED Log IU/mL [facility] Comment:For additional infor mation, please refer [email or web address].Midatech/faq/[email or web address](This link is being provided for informational/educational purposes only.)THIS TEST WAS PERFORMED AT:[facility] [place] [phone] GOMEZ MD Blood 12/09/2023 3:49 PM EDT 12/09/2023 5:02 PM EDT Result Myra Corral MD LAB BLOOD ORDERABLES Final Result [facility] [address] [place] [phone] * HIV-1/2 Antigen and Antibodies, Fourth Generation, with Reflexes (12/09/2023 3:49 PM EDT) Pathologist [facility] HIV AB/AG Nonreactive Nonreactive [facility] Comment:HIV-1 p24 Ag and/or HIV-1/HIV-2 Ab not detected.A test result that is nonreactive does not exclude thepossibility of exposure to or infection with HIV-1 and/orHIV-2. Nonreactive results in this assay for individualswith prior exposure to HIV-1 and/or HIV-2 may be due toantigen and antibody levels that are below the limit ofdetection of this assay.[employer] HIV Ag/Ab Combo assay result andsupplemental assay results should be interpreted inconjunction with the patient's clinical presentation,history and other laboratory results. If the results areinconsistent with clinical evidence, additional testing issuggested to confirm the result. Blood Venous blood specimen / Unknown 12/09/2023 3:49 PM EDT 12/09/2023 5:02 PM EDT us Siobhan Corral MD LAB BLOOD ORDERABLES Final Result Performing Organization Address City/[facility]/ZIP Co de Phone Number [facility] [address] [place] [phone] * Fecal immunochemical (07/21/2022 12:00 AM EST) [facility] FIT1 POSITIVE NEGATIVE [facility] FIT DATE 1 07/20/22 [facility] FIT2 NEGATIVE NEGATIVE [facility] FIT DATE 2 07/21/22 [facility] 07/21/2022 07/21/2022 3:1 3 PM EST [facility] Exter nal Provider LAB BODY FLUIDS AND STOOLS ORDERABLES Final Result [facility] [address] [place] [phone] from Last 3 Months or Most Recently Relevant to Health Maintenance Insurance [facility] C3 Care Teams Elementary [employer] Teacher Relationship Specialty Start Date End Date Siobhan Gregory MD [address] [place] [phone] PCP - General Family Medicine 01/01/19 Paty Farmer Coater Operator Insulation BoardSkull Splitter 12/07/23
--- OUTSIDE RECORDS SUMMARY | 2025-03-28 19:19 | XMS_ITS | Encounter Summary ---
Author Organization [employer] Address [address] [facility] 7t [place] [address] Care Team Providers Care Rotary Dump Operator Name Role Phone Siobhan Gregory MD Primary Care Provide r Reason for Visit * Reason Comments Med Refill Encounter Details Date Type Department Care Team ([facility] st Contact Info) Description 04/23/2024 Refill [facility] [address] [place], [place] [phone] Siobhan Gregory MD [address] [place], [place] [phone] Other specified hypothyroidism; Type 1 diabetes mellitus [...] diabetes mellitus with other specified complication (HCC) Chronic pain in right shoulder Pain in joint, shoulder region Heartburn documented in this encounter Additional Health Concerns Assessment Noted Time PHQ-9 Depression Total Score: 18 024 2:19 PM EDT documented as of this encounter Care Teams Rotary Dump Operator Relationship Specialty Start Date End Date Siobhan Gregory MD [address] [place] [phone] PCP - General Family Medicine 01/01/19 Paty Farmer Exchange ConsultantBrim Stitcher 12/07/23 documented as of this encounter
== END 2025-03-28 15:52 | disposition home or self-care (01) ==
LOC: HO.HHCL 15:51
PROVIDERS: PCP Internal Medicine; Visit Provider Internal Medicine
DX: E10.69 Type 1 diabetes mellitus with other specified complication (principal)
CPT/HCPCS: 36415; 80053; 80061; 82043; 82570; 84443